=== PATIENT | female | born 1945 | race Caucasian/White ===

== ENCOUNTER 2016-09-30 14:40 | Emergency (ER) | payer OTHER ==
[~2016-09-30] VITALS: Ht 157.5 cm; Wt 65.8 kg
[~2016-09-30 14:40] MED LIST: ALBU18 PO; ALEN70TA55 PO; BUPR150T6 PO; CAR3125T PO; CLOP75TA28 PO; FELO10TA PO; GLIP-116 PO; LISI40TA PO; SIMV80TA73 PO; SPIR25TA88 PO; TRAZ50TA2 PO
[2016-09-30 15:42] LABS: Basophils # (auto) 0.1 uL; Basophils % (auto) 0.4 % (0.0-2.0); DEFINITIVE VIEW TRANSMISSION; Eosinophils # (auto) 0.1 uL; Hematocrit 38.7 % (36.0-46.0); Hemoglobin 11.5 g/dL (12.2-16.2); Lymphocytes # (auto) 2.1 uL; Lymphocytes % (auto) 14.8 % (10.0-50.0); Mean Corpuscular Hemoglobin 21.5 pg (28.0-32.0); Mean Corpuscular Hgb Conc. 29.8 g/dL (32.0-36.0); Mean Corpuscular Volume 72.2 fL (80.0-100.0); Mean Platelet Volume 8.8 fL (7.4-10.4); Monocytes # (auto) 0.7 uL; Monocytes % (auto) 5.2 % (0.0-12.0); Neutrophils # (auto) 11.2 uL; Neutrophils % (auto) 78.6 % (37.0-80.0); Platelet Count (auto) 369 10^3/uL (140-450); White Blood Cell 14.3 10^3/uL (4.4-10.8)
[2016-09-30 15:43] LABS: Albumin 3.7 g/dL (3.4-5.0); BUN/Creatinine Ratio 12.5; Bilirubin, Total 0.6 mg/dL (0.2-1.0); Calcium 9.7 mg/dL (8.5-10.1); Potassium 3.2 mmol/L (3.5-5.1); Total Protein 7.6 g/dL (6.4-8.2)
[2016-09-30 16:52] LABS: Platelet Estimate Adequate
[2016-09-30 16:53] LABS: Hypochromia Moderate
[2016-10-01 00:01] LABS: Basophils # (auto) 0.2 uL; Basophils % (auto) 1.4 % (0.0-2.0); DEFINITIVE VIEW TRANSMISSION; Eosinophils # (auto) 0.2 uL; Eosinophils % (auto) 1.6 % (0.0-7.0); Hematocrit 38.1 % (36.0-46.0); Hemoglobin 11.2 g/dL (12.2-16.2); Mean Corpuscular Hemoglobin 21.4 pg (28.0-32.0); Mean Corpuscular Hgb Conc. 29.4 g/dL (32.0-36.0); Mean Corpuscular Volume 72.6 fL (80.0-100.0); Mean Platelet Volume 8.6 fL (7.4-10.4); Monocytes # (auto) 0.9 uL; Monocytes % (auto) 7.1 % (0.0-12.0); Neutrophils # (auto) 8.6 uL; Neutrophils % (auto) 66.9 % (37.0-80.0); Platelet Count (auto) 365 10^3/uL (140-450); Red Cell Distribution Width 18.6 % (11.6-16.0); White Blood Cell 12.9 10^3/uL (4.4-10.8)
[2016-10-01 00:10] LABS: Albumin 3.7 g/dL (3.4-5.0); BUN/Creatinine Ratio 12.2; Calcium 9.5 mg/dL (8.5-10.1); Potassium 3.3 mmol/L (3.5-5.1)
[2016-10-01 00:20] LABS: Bilirubin, Total 0.7 mg/dL (0.2-1.0); Total Protein 7.4 g/dL (6.4-8.2)
[2016-10-01 00:36] LABS: B-Type Natriuretic Peptide 218.5 pg/mL (0-100); Temperature: 22.2 C (20.0-25.0)
[2016-10-01] MEDS ORDERED: POTASSIUM CHL 10% (20 MEQ/15ML) ORAL SOLN PO ONE (03:00)
[2016-10-01 03:08] VITALS: BP 144/74
[2016-10-01] MEDS ORDERED: HYDROcodone-ACET 10/325MG TAB PO ONE (03:30)
== END 2016-10-01 04:35 | disposition home or self-care (01) ==
LOC: EDUNIT# 14:40 → ER 14:49
DX: R60.9 Edema, unspecified (principal); I87.2 Venous insufficiency (chronic) (peripheral); I11.0 Hypertensive heart disease with heart failure; I50.9 Heart failure, unspecified; E11.9 Type 2 diabetes mellitus without complications; J44.9 Chronic obstructive pulmonary disease, unspecified; J45.909 Unspecified asthma, uncomplicated; Z87.891 Personal history of nicotine dependence; Z88.0 Allergy status to penicillin; Z79.02 Long term (current) use of antithrombotics/antiplatelets; Z79.899 Other long term (current) drug therapy
CPT/HCPCS: 36415; 71010; 80053; 83880; 84484; 85025; 85379; 93005; 93971

== ENCOUNTER 2019-10-13 01:43 | Inpatient (IN) | payer OTHER ==
[~2019-10-13] VITALS: Ht 157.5 cm; Wt 63.8 kg
[2019-10-13] VITALS (62 sets, daily range): BP systolic 113–178; BP diastolic 49–77
[~2019-10-13 01:43] MED LIST changes: +ALEN1TAB32 PO; -ALEN70TA55 PO; -FELO10TA PO; +FELO10TA3 PO; -GLIP-116 PO; +GLIP10TA9 PO
[2019-10-13] MEDS ORDERED: MIDAZOLAM DRIP 50 mg/50mL 50 ML IV ONE ×2 (01:57→05:25)
[2019-10-13] MEDS ORDERED: SUCCINYLCHOLINE CHLORIDE 20 MG/ML 10ML VIAL IV ONE ×2 (01:59→04:15)
[2019-10-13] MEDS ORDERED: ETOMIDATE (2MG/ML) 20ML VIAL IV ONE ×2 (01:59→04:15)
[2019-10-13] MEDS: MIDAZOLAM DRIP 50 mg/50mL 50 ML IV SCH ×4 (02:00→22:09)
[2019-10-13] MEDS ORDERED: PROPOFOL 100 ML IV ONE (02:37)
[2019-10-13] MEDS: PROPOFOL 100 ML IV SCH ×2 (02:43→22:10)
[2019-10-13] MEDS ORDERED: IPRATROPIUM BROM 0.5 MG/2.5ML INH SOL NEB ONE (03:00)
[2019-10-13] MEDS ORDERED: ALBUTEROL SULF 2.5 MG/0.5ML(0.5%) NEB SOLN NEB ONE (03:00)
[2019-10-13 05:15] LABS: Basophils # (auto) 0.1 uL; Basophils % (auto) 0.3 % (0.0-2.0); Eosinophils # (auto) 0.4 uL; Eosinophils % (auto) 2.1 % (0.0-7.0); Hematocrit 34.4 % (36.0-46.0); Hemoglobin 10.2 g/dL (12.2-16.2); Lymphocytes # (auto) 8.9 uL; Lymphocytes % (auto) 41.4 % (10.0-50.0); Mean Corpuscular Hemoglobin 23.8 pg (28.0-32.0); Mean Corpuscular Hgb Conc. 29.6 g/dL (32.0-36.0); Mean Corpuscular Volume 80.4 fL (80.0-100.0); Monocytes # (auto) 1.7 uL; Monocytes % (auto) 7.8 % (0.0-12.0); Neutrophils # (auto) 10.4 uL; Neutrophils % (auto) 48.4 % (37.0-80.0); Nucleated Red Blood Cells % 0.1 %; Platelet Count (auto) 345 10^3/uL (140-450); Red Blood Cells 4.27 10^6/uL (4.0-5.20); Red Cell Distribution Width 18.1 % (11.8-14.3); White Blood Cell 21.5 10^3/uL (4.4-10.8)
[2019-10-13 05:33] LABS: INR 0.93 (0.9-1.15); Partial Thromboplastin Time 22.8 sec (23.64-32.05); Potassium 3.6 mmol/L (3.5-5.1)
[2019-10-13 05:37] LABS: Lactic Acid w/Reflex 3.6 mmol/L (0.4-2.0)
[2019-10-13 05:44] LABS: Albumin 3.5 g/dL (3.4-5.0); BUN/Creatinine Ratio 9.5; Bilirubin, Total 0.3 mg/dL (0.2-1.0); Calcium 8.4 mg/dL (8.5-10.1); Magnesium 2.4 mg/dL (1.6-2.6); Total Protein 7.4 g/dL (6.4-8.2)
[2019-10-13] MEDS ORDERED: DEXTROSE (50%) 50ML SYRG IV ONE (08:30)
[2019-10-13] MEDS ORDERED: VANCOMYCIN PER PHARMACY 0 MG IV SCH (08:30)
[2019-10-13] MEDS: SODIUM CHLORIDE 0.9% 1,000 ML IV SCH ×2 (09:45→16:30)
[2019-10-13] MEDS ORDERED: PANTOPRAZOLE 40 MG/10 ML VIAL INJ IV ONE (10:00)
[2019-10-13] MEDS: VANCOMYCIN 1GM/250ML 250 ML IV SCH (10:54)
[2019-10-13] MEDS: ASPirin 81 mg TAB NG SCH (10:56)
[2019-10-13] MEDS: METOPROLOL TARTRATE 25 MG TAB NG SCH ×2 (11:00→22:06)
[2019-10-13] MEDS ORDERED: DEXTROSE (50%) 50ML SYRG IV PRN (11:45)
[2019-10-13] MEDS ORDERED: PIPERACILLIN-TAZOB 3.375GM 100 ML IV SCH (12:00)
[2019-10-13] MEDS ORDERED: levoFLOXacin 500MG 100 ML IV SCH (12:00)
[2019-10-13] MEDS: ACCU-CHEK COMFORT CURVE STRIP VI SCH ×2 (12:17→17:56)
[2019-10-13] MEDS: InsuLIN REG 1unit/0.01ml Soln (100units/ml) SC SCH ×2 (12:21→18:03)
[2019-10-13 12:29] LABS: Basophils # (auto) 0 uL; Basophils % (auto) 0.4 % (0.0-2.0); Eosinophils # (auto) 0 uL; Eosinophils % (auto) 0.4 % (0.0-7.0); Hematocrit 28.3 % (36.0-46.0); Hemoglobin 8.9 g/dL (12.2-16.2); Lymphocytes # (auto) 1.6 uL; Lymphocytes % (auto) 14.7 % (10.0-50.0); Mean Corpuscular Hgb Conc. 31.3 g/dL (32.0-36.0); Mean Corpuscular Volume 76.9 fL (80.0-100.0); Monocytes % (auto) 9.3 % (0.0-12.0); Neutrophils # (auto) 8.4 uL; Neutrophils % (auto) 75.2 % (37.0-80.0); Platelet Count (auto) 222 10^3/uL (140-450); Red Blood Cells 3.68 10^6/uL (4.0-5.20); Red Cell Distribution Width 18.1 % (11.8-14.3); White Blood Cell 11.1 10^3/uL (4.4-10.8)
[2019-10-13 13:13] LABS: Calcium 8.6 mg/dL (8.5-10.1); Potassium 3.2 mmol/L (3.5-5.1)
[2019-10-13] MEDS ORDERED: IPRIH INH (13:29)
[2019-10-13] MEDS ORDERED: IPRA0.03 (13:29)
[2019-10-13] MEDS ORDERED: CYA100I PO (13:29)
[2019-10-13] MEDS ORDERED: FELO5TAB3 PO (13:33)
[2019-10-13] MEDS ORDERED: SULF400T11 PO (13:33)
[2019-10-13] MEDS ORDERED: ACE3T PO (13:33)
[2019-10-13] MEDS ORDERED: DIGO0.1238 PO (13:34)
[2019-10-13] MEDS ORDERED: HYDR-4296 PO (13:36)
[2019-10-13] MEDS ORDERED: CHOL1TAB42 PO (13:36)
[2019-10-13] MEDS: methylPREDNISolone SOD SUCC 40 MG/ML VL IV SCH ×2 (14:23→22:05)
[2019-10-13] MEDS: HEPARIN SODIUM (PORCINE) 5000 UNITS/ML 1ML VIAL SC SCH ×2 (14:24→22:08)
[2019-10-13] MEDS: hydrALAZINE HCL 20 MG/ML VL IV PRN (18:31)
[2019-10-13] MEDS: POTASSIUM CHL 20MEQ/100ML 100 ML IV SCH ×2 (20:03→21:30)
[2019-10-13] MEDS ORDERED: ATORVASTATIN 20 MG TAB PO SCH (22:00)
[2019-10-13] MEDS: ATORVASTATIN 20 MG TAB NG SCH (22:05)
[2019-10-13] MEDS: traZODone HCL 50 MG TAB PO SCH (22:06)
[2019-10-13] MEDS: CARVEDILOL 3.125 MG TAB PO SCH (22:06)
[2019-10-14] VITALS (79 sets, daily range): BP systolic 124–172; BP diastolic 45–74
[2019-10-14] MEDS: METOPROLOL TARTRATE 25 MG TAB NG SCH ×2 (00:35→22:00)
[2019-10-14] MEDS: SODIUM CHLORIDE 0.9% 1,000 ML IV SCH ×2 (00:36→13:54)
[2019-10-14 03:25] LABS: Basophils # (auto) 0 uL; Basophils % (auto) 0.1 % (0.0-2.0); Eosinophils # (auto) 0 uL; Hemoglobin 8.8 g/dL (12.2-16.2); Monocytes # (auto) 0.3 uL
[2019-10-14 03:27] LABS: Hematocrit 28.4 % (36.0-46.0); Lymphocytes # (auto) 0.7 uL; Lymphocytes % (auto) 5.6 % (10.0-50.0); Mean Corpuscular Hemoglobin 23.6 pg (28.0-32.0); Mean Corpuscular Hgb Conc. 31.1 g/dL (32.0-36.0); Mean Corpuscular Volume 75.9 fL (80.0-100.0); Monocytes % (auto) 2.2 % (0.0-12.0); Neutrophils # (auto) 12.1 uL; Neutrophils % (auto) 92.1 % (37.0-80.0); Platelet Count (auto) 228 10^3/uL (140-450); Red Blood Cells 3.74 10^6/uL (4.0-5.20); White Blood Cell 13.1 10^3/uL (4.4-10.8)
[2019-10-14 03:42] LABS: Albumin 2.8 g/dL (3.4-5.0); Calcium 8.4 mg/dL (8.5-10.1); Potassium 3.6 mmol/L (3.5-5.1)
[2019-10-14 03:44] LABS: BUN/Creatinine Ratio 12.6
[2019-10-14 03:45] LABS: Bilirubin, Total 0.4 mg/dL (0.2-1.0); Total Protein 6.2 g/dL (6.4-8.2)
[2019-10-14] MEDS: MIDAZOLAM DRIP 50 mg/50mL 50 ML IV SCH ×2 (03:56→21:00)
[2019-10-14] MEDS: HEPARIN SODIUM (PORCINE) 5000 UNITS/ML 1ML VIAL SC SCH ×3 (05:17→22:00)
[2019-10-14] MEDS: methylPREDNISolone SOD SUCC 40 MG/ML VL IV SCH ×3 (05:44→22:00)
[2019-10-14] MEDS: InsuLIN REG 1unit/0.01ml Soln (100units/ml) SC SCH ×4 (05:45→18:45)
[2019-10-14] MEDS: ACCU-CHEK COMFORT CURVE STRIP VI SCH ×4 (05:45→18:31)
[2019-10-14] MEDS: VANCOMYCIN 1GM/250ML 250 ML IV SCH (10:11)
[2019-10-14] MEDS: SPIRONOLACTONE 25 MG TAB PO SCH (10:11)
[2019-10-14] MEDS: CLOPIDOGREL BISULFATE 75 MG TAB PO SCH (10:11)
[2019-10-14] MEDS: LISINOPRIL 20 MG TAB PO SCH (10:12)
[2019-10-14] MEDS: ASPirin 81 mg TAB NG SCH (10:12)
[2019-10-14] MEDS: CARVEDILOL 3.125 MG TAB PO SCH ×2 (10:18→20:00)
[2019-10-14] MEDS ORDERED: levoFLOXacin 500MG 100 ML IV SCH (14:00)
[2019-10-14] MEDS: LEVALBUTEROL HCL 1.25 MG/3 ML NEB NEB SCH (18:45)
[2019-10-14] MEDS: PROPOFOL 100 ML IV SCH (19:05)
[2019-10-14] MEDS: ATORVASTATIN 20 MG TAB NG SCH (22:00)
[2019-10-14] MEDS: traZODone HCL 50 MG TAB PO SCH (22:00)
[2019-10-15] VITALS (82 sets, daily range): BP systolic 131–165; BP diastolic 50–109
[2019-10-15] MEDS: LEVALBUTEROL HCL 1.25 MG/3 ML NEB NEB SCH ×4 (00:50→18:14)
[2019-10-15] MEDS: SODIUM CHLORIDE 0.9% 1,000 ML IV SCH ×2 (03:18→14:24)
[2019-10-15] MEDS: MIDAZOLAM DRIP 50 mg/50mL 50 ML IV SCH (03:30)
[2019-10-15] MEDS: PROPOFOL 100 ML IV SCH ×3 (04:00→22:15)
[2019-10-15] MEDS: methylPREDNISolone SOD SUCC 40 MG/ML VL IV SCH ×3 (05:31→21:55)
[2019-10-15] MEDS: HEPARIN SODIUM (PORCINE) 5000 UNITS/ML 1ML VIAL SC SCH ×3 (06:20→21:56)
[2019-10-15] MEDS: InsuLIN REG 1unit/0.01ml Soln (100units/ml) SC SCH ×4 (06:21→18:16)
[2019-10-15] MEDS: ACCU-CHEK COMFORT CURVE STRIP VI SCH ×4 (06:21→17:43)
[2019-10-15] MEDS: CARVEDILOL 3.125 MG TAB PO SCH ×3 (08:00→17:43)
[2019-10-15 09:43] LABS: Basophils # (auto) 0.1 10 ^3/uL (0-0.2); Basophils % (auto) 0.6 % (0.0-2.0); Eosinophils # (auto) 0 10 ^3/uL (0-0.8); Hematocrit 29.5 % (36.0-46.0); Lymphocytes # (auto) 0.5 10 ^3/uL (0.4-5.4); Lymphocytes % (auto) 3.3 % (10.0-50.0); Mean Corpuscular Hemoglobin 23.2 pg (28.0-32.0); Mean Corpuscular Hgb Conc. 30.3 g/dL (32.0-36.0); Mean Corpuscular Volume 76.5 fL (80.0-100.0); Monocytes # (auto) 0.5 10 ^3/uL (0-1.3); Monocytes % (auto) 3.3 % (0.0-12.0); Neutrophils # (auto) 14.4 10 ^3/uL (1.6-8.6); Neutrophils % (auto) 92.8 % (37.0-80.0); Platelet Count (auto) 230 10^3/uL (140-450); Red Blood Cells 3.86 10^6/uL (4.0-5.20); Red Cell Distribution Width 18.3 % (11.8-14.3); White Blood Cell 15.5 10^3/uL (4.4-10.8)
[2019-10-15] MEDS: SPIRONOLACTONE 25 MG TAB PO SCH (10:00)
[2019-10-15 10:03] LABS: BUN/Creatinine Ratio 19.8; Calcium 8.1 mg/dL (8.5-10.1)
[2019-10-15] MEDS: LISINOPRIL 20 MG TAB PO SCH (10:09)
[2019-10-15] MEDS: CLOPIDOGREL BISULFATE 75 MG TAB PO SCH (10:09)
[2019-10-15] MEDS: ASPirin 81 mg TAB NG SCH (10:25)
[2019-10-15] MEDS ORDERED: FUROSEMIDE 20 MG/2 ML VIAL IV ONE (10:30)
[2019-10-15] MEDS ORDERED: DEXTROSE (50%) 50ML SYRG IV PRN (12:30)
[2019-10-15] MEDS: levoFLOXacin 750MG 150 ML IV SCH (14:23)
[2019-10-15] MEDS ORDERED: ACCU-CHEK COMFORT CURVE STRIP VI SCH (18:00)
[2019-10-15] MEDS ORDERED: InsuLIN REG 1unit/0.01ml Soln (100units/ml) SC SCH (18:00)
[2019-10-15] MEDS: traZODone HCL 50 MG TAB PO SCH (21:55)
[2019-10-15] MEDS: ATORVASTATIN 20 MG TAB NG SCH (21:55)
[2019-10-16] VITALS (63 sets, daily range): BP systolic 127–172; BP diastolic 52–92
[2019-10-16] MEDS: LEVALBUTEROL HCL 1.25 MG/3 ML NEB NEB SCH ×4 (00:14→18:05)
[2019-10-16] MEDS: ACCU-CHEK COMFORT CURVE STRIP VI SCH ×4 (00:28→17:50)
[2019-10-16] MEDS: InsuLIN REG 1unit/0.01ml Soln (100units/ml) SC SCH ×4 (00:28→17:50)
[2019-10-16 03:57] LABS: Basophils # (auto) 0 10 ^3/uL (0-0.2); Eosinophils # (auto) 0 10 ^3/uL (0-0.8); Hematocrit 27.9 % (36.0-46.0); Hemoglobin 8.6 g/dL (12.2-16.2); Lymphocytes # (auto) 0.5 10 ^3/uL (0.4-5.4); Lymphocytes % (auto) 3.6 % (10.0-50.0); Mean Corpuscular Hemoglobin 23.9 pg (28.0-32.0); Mean Corpuscular Hgb Conc. 30.8 g/dL (32.0-36.0); Mean Corpuscular Volume 77.6 fL (80.0-100.0); Monocytes # (auto) 0.5 10 ^3/uL (0-1.3); Monocytes % (auto) 3.7 % (0.0-12.0); Neutrophils # (auto) 12.1 10 ^3/uL (1.6-8.6); Neutrophils % (auto) 92.7 % (37.0-80.0); Nucleated Red Blood Cells % 0.1 %; Platelet Count (auto) 217 10^3/uL (140-450); Red Blood Cells 3.59 10^6/uL (4.0-5.20); Red Cell Distribution Width 18.1 % (11.8-14.3)
[2019-10-16] MEDS: PROPOFOL 100 ML IV SCH (04:04)
[2019-10-16 04:13] LABS: BUN/Creatinine Ratio 28.4; Magnesium 2.4 mg/dL (1.6-2.6); Potassium 3.9 mmol/L (3.5-5.1)
[2019-10-16] MEDS: methylPREDNISolone SOD SUCC 40 MG/ML VL IV SCH ×3 (06:04→22:12)
[2019-10-16] MEDS: HEPARIN SODIUM (PORCINE) 5000 UNITS/ML 1ML VIAL SC SCH ×3 (06:04→22:20)
[2019-10-16] MEDS: SODIUM CHLORIDE 0.9% 1,000 ML IV SCH ×2 (07:54→10:57)
[2019-10-16] MEDS: CARVEDILOL 3.125 MG TAB PO SCH ×2 (08:00→18:08)
[2019-10-16] MEDS: LISINOPRIL 20 MG TAB PO SCH (10:00)
[2019-10-16] MEDS: ASPirin 81 mg TAB NG SCH (10:12)
[2019-10-16] MEDS: CLOPIDOGREL BISULFATE 75 MG TAB PO SCH (10:21)
[2019-10-16] MEDS: SPIRONOLACTONE 25 MG TAB PO SCH (10:44)
[2019-10-16] MEDS: DexMEDEtomidine 400 MCG in D5W 5% 96 ML IV SCH (14:02)
[2019-10-16] MEDS ORDERED: FUROSEMIDE 40 MG/4 ML VIAL IV ONE (18:30)
[2019-10-16] MEDS: ATORVASTATIN 20 MG TAB NG SCH (22:12)
[2019-10-16] MEDS: traZODone HCL 50 MG TAB PO SCH (22:12)
[2019-10-16] MEDS ORDERED: LORazepam 2MG/ML-1ML VIAL IV PRN (22:15)
[2019-10-17] VITALS (27 sets, daily range): BP systolic 124–170; BP diastolic 64–115
[2019-10-17] MEDS: LEVALBUTEROL HCL 1.25 MG/3 ML NEB NEB SCH ×5 (00:02→23:50)
[2019-10-17] MEDS: InsuLIN REG 1unit/0.01ml Soln (100units/ml) SC SCH ×4 (00:07→19:04)
[2019-10-17] MEDS: ACCU-CHEK COMFORT CURVE STRIP VI SCH ×4 (00:07→19:05)
[2019-10-17] MEDS: PROPOFOL 100 ML IV SCH (04:39)
[2019-10-17] MEDS: MIDAZOLAM DRIP 50 mg/50mL 50 ML IV SCH (04:39)
[2019-10-17] MEDS: methylPREDNISolone SOD SUCC 40 MG/ML VL IV SCH ×3 (06:14→22:05)
[2019-10-17] MEDS: HEPARIN SODIUM (PORCINE) 5000 UNITS/ML 1ML VIAL SC SCH ×3 (06:15→22:15)
[2019-10-17] MEDS: CARVEDILOL 3.125 MG TAB PO SCH ×2 (08:37→19:03)
[2019-10-17 08:46] LABS: Basophils # (auto) 0 10 ^3/uL (0-0.2); Basophils % (auto) 0.1 % (0.0-2.0); Eosinophils # (auto) 0 10 ^3/uL (0-0.8); Hemoglobin 9.8 g/dL (12.2-16.2); Lymphocytes # (auto) 0.7 10 ^3/uL (0.4-5.4); White Blood Cell 11.7 10^3/uL (4.4-10.8)
[2019-10-17 08:47] LABS: Hematocrit 31.7 % (36.0-46.0); Mean Corpuscular Hemoglobin 23.4 pg (28.0-32.0); Mean Corpuscular Hgb Conc. 30.8 g/dL (32.0-36.0); Monocytes # (auto) 0.5 10 ^3/uL (0-1.3); Monocytes % (auto) 4.7 % (0.0-12.0); Neutrophils # (auto) 10.4 10 ^3/uL (1.6-8.6); Neutrophils % (auto) 89.2 % (37.0-80.0); Platelet Count (auto) 227 10^3/uL (140-450); Red Blood Cells 4.17 10^6/uL (4.0-5.20); Red Cell Distribution Width 18.3 % (11.8-14.3)
[2019-10-17 08:53] LABS: Magnesium 2.5 mg/dL (1.6-2.6); Potassium 3.6 mmol/L (3.5-5.1)
[2019-10-17 08:56] LABS: BUN/Creatinine Ratio 29.7; Calcium 8.9 mg/dL (8.5-10.1)
[2019-10-17] MEDS: CLOPIDOGREL BISULFATE 75 MG TAB PO SCH (09:47)
[2019-10-17] MEDS: LISINOPRIL 20 MG TAB PO SCH (09:47)
[2019-10-17] MEDS: ASPirin 81 mg TAB NG SCH (09:48)
[2019-10-17] MEDS: SPIRONOLACTONE 25 MG TAB PO SCH (09:48)
[2019-10-17] MEDS: DexMEDEtomidine 400 MCG in D5W 5% 96 ML IV SCH (12:57)
[2019-10-17] MEDS: levoFLOXacin 750MG 150 ML IV SCH (14:10)
[2019-10-17] MEDS: SODIUM CHLORIDE 0.9% 1,000 ML IV SCH (14:24)
[2019-10-17] MEDS ORDERED: FUROSEMIDE 40 MG/4 ML VIAL IV ONE (16:15)
[2019-10-17] MEDS ORDERED: ALPRAZolam 0.25 MG TAB PO PRN (17:00)
[2019-10-17] MEDS: ATORVASTATIN 20 MG TAB NG SCH (22:05)
[2019-10-17] MEDS: traZODone HCL 50 MG TAB PO SCH (22:05)
[2019-10-18] VITALS (20 sets, daily range): BP systolic 99–162; BP diastolic 56–85
[2019-10-18] MEDS: ACCU-CHEK COMFORT CURVE STRIP VI SCH ×4 (00:27→18:31)
[2019-10-18] MEDS: InsuLIN REG 1unit/0.01ml Soln (100units/ml) SC SCH ×4 (00:27→18:33)
[2019-10-18] MEDS: methylPREDNISolone SOD SUCC 40 MG/ML VL IV SCH ×3 (05:48→21:17)
[2019-10-18] MEDS: HEPARIN SODIUM (PORCINE) 5000 UNITS/ML 1ML VIAL SC SCH ×3 (05:49→21:29)
[2019-10-18] MEDS: LEVALBUTEROL HCL 1.25 MG/3 ML NEB NEB SCH ×4 (06:56→23:29)
[2019-10-18] MEDS: CARVEDILOL 3.125 MG TAB PO SCH ×2 (08:00→18:00)
[2019-10-18 09:29] LABS: Eosinophils # (auto) 0 10 ^3/uL (0-0.8); Lymphocytes # (auto) 0.6 10 ^3/uL (0.4-5.4); Neutrophils # (auto) 10.3 10 ^3/uL (1.6-8.6)
[2019-10-18 09:32] LABS: Basophils # (auto) 0.1 10 ^3/uL (0-0.2); Basophils % (auto) 0.5 % (0.0-2.0); Eosinophils % (auto) 0.1 % (0.0-7.0); Hematocrit 33.2 % (36.0-46.0); Hemoglobin 10.2 g/dL (12.2-16.2); Lymphocytes % (auto) 5.6 % (10.0-50.0); Mean Corpuscular Hemoglobin 23.6 pg (28.0-32.0); Mean Corpuscular Hgb Conc. 30.8 g/dL (32.0-36.0); Mean Corpuscular Volume 76.7 fL (80.0-100.0); Monocytes # (auto) 0.5 10 ^3/uL (0-1.3); Monocytes % (auto) 4.2 % (0.0-12.0); Neutrophils % (auto) 89.6 % (37.0-80.0); Nucleated Red Blood Cells % 0.1 %; Platelet Count (auto) 149 10^3/uL (140-450); Red Blood Cells 4.33 10^6/uL (4.0-5.20); White Blood Cell 11.5 10^3/uL (4.4-10.8)
[2019-10-18 09:48] LABS: Albumin 2.9 g/dL (3.4-5.0)
[2019-10-18 09:50] LABS: Bilirubin, Total 0.7 mg/dL (0.2-1.0); Total Protein 6.2 g/dL (6.4-8.2)
[2019-10-18] MEDS: LISINOPRIL 20 MG TAB PO SCH (10:02)
[2019-10-18] MEDS: SPIRONOLACTONE 25 MG TAB PO SCH (10:02)
[2019-10-18] MEDS: ASPirin 81 mg TAB NG SCH (10:02)
[2019-10-18] MEDS: CLOPIDOGREL BISULFATE 75 MG TAB PO SCH (10:02)
[2019-10-18] MEDS ORDERED: FUROSEMIDE 40 MG/4 ML VIAL IV ONE (10:45)
[2019-10-18] MEDS: hydrALAZINE HCL 20 MG/ML VL IV PRN (18:34)
[2019-10-18] MEDS: ATORVASTATIN 20 MG TAB NG SCH (21:17)
[2019-10-18] MEDS: traZODone HCL 50 MG TAB PO SCH (21:18)
[2019-10-19] VITALS (7 sets, daily range): BP systolic 133–157; BP diastolic 50–60
[2019-10-19] MEDS: ACCU-CHEK COMFORT CURVE STRIP VI SCH ×4 (00:26→18:08)
[2019-10-19] MEDS: InsuLIN REG 1unit/0.01ml Soln (100units/ml) SC SCH ×4 (00:36→18:31)
[2019-10-19] MEDS: methylPREDNISolone SOD SUCC 40 MG/ML VL IV SCH ×3 (06:02→22:09)
[2019-10-19] MEDS: LEVALBUTEROL HCL 1.25 MG/3 ML NEB NEB SCH ×2 (06:50→12:00)
[2019-10-19] MEDS: CLOPIDOGREL BISULFATE 75 MG TAB PO SCH (08:32)
[2019-10-19] MEDS: ASPirin 81 mg TAB NG SCH (08:32)
[2019-10-19] MEDS: SPIRONOLACTONE 25 MG TAB PO SCH (08:33)
[2019-10-19] MEDS: CARVEDILOL 3.125 MG TAB PO SCH ×2 (08:33→18:29)
[2019-10-19] MEDS: LISINOPRIL 20 MG TAB PO SCH (08:34)
[2019-10-19] MEDS ORDERED: FAMOTIDINE 20 MG TAB PO SCH (10:00)
[2019-10-19] MEDS: HEPARIN SODIUM (PORCINE) 5000 UNITS/ML 1ML VIAL SC SCH ×2 (10:25→22:06)
[2019-10-19] MEDS: hydrALAZINE HCL 20 MG/ML VL IV PRN (10:30)
[2019-10-19] MEDS: levoFLOXacin 750MG 150 ML IV SCH (15:27)
[2019-10-19] MEDS ORDERED: METOCLOPRAMIDE HCL 5MG/ml INJ 2ml VIAL IV PRN (16:00)
[2019-10-19] MEDS: LEVALBUTEROL HCL 1.25 MG/3 ML NEB NEB PRN (18:09)
[2019-10-19] MEDS: ATORVASTATIN 20 MG TAB NG SCH (22:09)
[2019-10-19] MEDS: traZODone HCL 50 MG TAB PO SCH (22:09)
[2019-10-19] MEDS: PANTOPRAZOLE 40 MG TAB PO SCH (22:10)
[2019-10-20] VITALS (7 sets, daily range): BP systolic 120–149; BP diastolic 53–78
[2019-10-20] MEDS: ACCU-CHEK COMFORT CURVE STRIP VI SCH ×5 (00:06→23:42)
[2019-10-20] MEDS ORDERED: SODIUM CHLORIDE 0.9% 1,000 ML IV ONE (05:45)
[2019-10-20] MEDS: LEVALBUTEROL HCL 1.25 MG/3 ML NEB NEB PRN (06:20)
[2019-10-20] MEDS: methylPREDNISolone SOD SUCC 40 MG/ML VL IV SCH ×3 (06:20→21:34)
[2019-10-20] MEDS: InsuLIN REG 1unit/0.01ml Soln (100units/ml) SC SCH ×5 (06:38→23:47)
[2019-10-20 08:47] LABS: Magnesium 2.4 mg/dL (1.6-2.6); Potassium 3.6 mmol/L (3.5-5.1)
[2019-10-20] MEDS: SPIRONOLACTONE 25 MG TAB PO SCH (09:37)
[2019-10-20] MEDS: ASPirin 81 mg TAB NG SCH (09:37)
[2019-10-20] MEDS: CLOPIDOGREL BISULFATE 75 MG TAB PO SCH (09:37)
[2019-10-20] MEDS: CARVEDILOL 3.125 MG TAB PO SCH ×2 (09:38→17:45)
[2019-10-20] MEDS: PANTOPRAZOLE 40 MG TAB PO SCH ×2 (09:39→21:33)
[2019-10-20] MEDS: LISINOPRIL 20 MG TAB PO SCH (09:39)
[2019-10-20] MEDS ORDERED: ENOXAPARIN SOD 60 MG/0.6 ML SYRINGE SC SCH (10:00)
[2019-10-20] MEDS ORDERED: DRONEDARONE HCL 400 MG TAB PO ONE (10:49)
[2019-10-20] MEDS: ATORVASTATIN 20 MG TAB NG SCH (21:33)
[2019-10-20] MEDS: APIXABAN 5 MG TAB PO SCH (21:33)
[2019-10-20] MEDS: traZODone HCL 50 MG TAB PO SCH (21:33)
[2019-10-20] MEDS: DRONEDARONE HCL 400 MG TAB PO SCH (21:34)
[2019-10-21 05:00] VITALS: BP 135/58
[2019-10-21] MEDS: ACCU-CHEK COMFORT CURVE STRIP VI SCH ×3 (06:04→17:03)
[2019-10-21] MEDS: methylPREDNISolone SOD SUCC 40 MG/ML VL IV SCH ×2 (06:18→14:08)
[2019-10-21] MEDS: InsuLIN REG 1unit/0.01ml Soln (100units/ml) SC SCH ×3 (06:19→17:03)
[2019-10-21 07:58] LABS: Basophils # (auto) 0 10 ^3/uL (0-0.2); Basophils % (auto) 0.2 % (0.0-2.0); Eosinophils # (auto) 0 10 ^3/uL (0-0.8); Hemoglobin 10.3 g/dL (12.2-16.2); Lymphocytes # (auto) 0.8 10 ^3/uL (0.4-5.4); Monocytes # (auto) 0.6 10 ^3/uL (0-1.3)
[2019-10-21 07:59] LABS: Hematocrit 32.8 % (36.0-46.0); Lymphocytes % (auto) 6.5 % (10.0-50.0); Mean Corpuscular Hemoglobin 23.7 pg (28.0-32.0); Mean Corpuscular Hgb Conc. 31.4 g/dL (32.0-36.0); Mean Corpuscular Volume 75.3 fL (80.0-100.0); Monocytes % (auto) 5.1 % (0.0-12.0); Neutrophils # (auto) 10.6 10 ^3/uL (1.6-8.6); Neutrophils % (auto) 88.2 % (37.0-80.0); Platelet Count (auto) 223 10^3/uL (140-450); Red Blood Cells 4.36 10^6/uL (4.0-5.20); Red Cell Distribution Width 17.7 % (11.8-14.3)
[2019-10-21] MEDS: CARVEDILOL 3.125 MG TAB PO SCH ×2 (08:00→17:04)
[2019-10-21 08:14] LABS: BUN/Creatinine Ratio 30.6; Calcium 8.8 mg/dL (8.5-10.1)
[2019-10-21 08:17] LABS: INR 1.09 (0.9-1.15)
[2019-10-21 08:25] VITALS: BP 131/58
[2019-10-21] MEDS: SPIRONOLACTONE 25 MG TAB PO SCH (09:38)
[2019-10-21] MEDS: DRONEDARONE HCL 400 MG TAB PO SCH (09:38)
[2019-10-21] MEDS: PANTOPRAZOLE 40 MG TAB PO SCH (09:39)
[2019-10-21] MEDS: APIXABAN 5 MG TAB PO SCH (09:39)
[2019-10-21] MEDS: LISINOPRIL 20 MG TAB PO SCH (09:39)
[2019-10-21 12:44] VITALS: BP 110/50
[2019-10-21] MEDS ORDERED: levoFLOXacin 250 MG TAB PO SCH (14:00)
[2019-10-21] MEDS ORDERED: PANT20TA59 PO ×2 (16:09→16:11)
[2019-10-21] MEDS ORDERED: CAR3125T PO ×2 (16:09→16:11)
[2019-10-21] MEDS ORDERED: PRED20TA2 PO ×2 (16:09→16:11)
[2019-10-21] MEDS ORDERED: LISI40TA PO ×2 (16:09→16:11)
[2019-10-21] MEDS ORDERED: DIGO0.1238 PO ×2 (16:09→16:11)
[2019-10-21] MEDS ORDERED: LEVO-28 PO ×2 (16:09→16:11)
[2019-10-21] MEDS ORDERED: APIX2.5T PO ×2 (16:09→16:11)
[2019-10-21 16:59] VITALS: BP 115/50
== END 2019-10-21 20:40 | disposition home health service (06) | DRG 208 ==
LOC: EDBD 01:43 → ER 01:52 → TELE 01:53 → ICU WEST 09:42 → DOU IN ICU 10-18 16:05 → TELE-WESTW 10-20 19:51
PROVIDERS: ADMIT Internal Medicine; ATTEND Internal Medicine
PROC: 0BH17EZ Insertion of Endotracheal Airway into Trachea, Via Natural or Artificial Opening (ICD-10-PCS; principal; 2019-10-13)
PROC: 5A1945Z Respiratory Ventilation, 24-96 Consecutive Hours (ICD-10-PCS; 2019-10-13)
PROC: 5A09357 Assistance with Respiratory Ventilation, Less than 24 Consecutive Hours, Continuous Positive Airway Pressure (ICD-10-PCS; 2019-10-15)
PROC: 5A1935Z Respiratory Ventilation, Less than 24 Consecutive Hours (ICD-10-PCS; 2019-10-15)
PROC: 0BH17EZ Insertion of Endotracheal Airway into Trachea, Via Natural or Artificial Opening (ICD-10-PCS; 2019-10-15)
PROC: 5A09357 Assistance with Respiratory Ventilation, Less than 24 Consecutive Hours, Continuous Positive Airway Pressure (ICD-10-PCS; 2019-10-16)
PROC: 5A09357 Assistance with Respiratory Ventilation, Less than 24 Consecutive Hours, Continuous Positive Airway Pressure (ICD-10-PCS; 2019-10-17)
DX: J96.22 Acute and chronic respiratory failure with hypercapnia (principal); J18.1 Lobar pneumonia, unspecified organism; I21.4 Non-ST elevation (NSTEMI) myocardial infarction; E87.2 Acidosis; J98.11 Atelectasis; J45.901 Unspecified asthma with (acute) exacerbation; I43 Cardiomyopathy in diseases classified elsewhere; I50.22 Chronic systolic (congestive) heart failure; J96.21 Acute and chronic respiratory failure with hypoxia; I48.91 Unspecified atrial fibrillation; E11.9 Type 2 diabetes mellitus without complications; R79.89 Other specified abnormal findings of blood chemistry; D72.829 Elevated white blood cell count, unspecified; I11.0 Hypertensive heart disease with heart failure; I25.10 Atherosclerotic heart disease of native coronary artery without angina pectoris; F17.200 Nicotine dependence, unspecified, uncomplicated; J43.9 Emphysema, unspecified; I48.0 Paroxysmal atrial fibrillation; E66.9 Obesity, unspecified; J20.9 Acute bronchitis, unspecified; Z99.81 Dependence on supplemental oxygen; Z98.61 Coronary angioplasty status; Z88.0 Allergy status to penicillin; Z79.02 Long term (current) use of antithrombotics/antiplatelets; Z79.84 Long term (current) use of oral hypoglycemic drugs; Z79.899 Other long term (current) drug therapy; Z80.9 Family history of malignant neoplasm, unspecified; Z83.3 Family history of diabetes mellitus; Z68.25 Body mass index [BMI] 25.0-25.9, adult
CPT/HCPCS: 31500; 36415; 36600; 51702; 70450; 71045; 72125; 80048; 80053; 82805; 82962; 83036; 83605; 83735; 83880; 84132; 84443; 84484; 85025; 85379; 85610; 85730; 87040; 87070; 87077; 87081; 87186; 87205; 87804; 93005; 93306; 93970; 94002; 94003; 94640; 94660; 97110; 97116; 97163; 97530; 99291; C9113; G0378; J0330; J1815; J1956; J2250; J2704; J3480; J7060

== ENCOUNTER 2019-12-06 02:59 | Inpatient (IN) | payer OTHER ==
[~2019-12-06] VITALS: Ht 154.9 cm; Wt 69.2 kg
[2019-12-06] VITALS (63 sets, daily range): BP systolic 119–166; BP diastolic 39–70
[~2019-12-06 02:59] MED LIST changes: +APIX2.5T PO; +CHOL1TAB42 PO; -CLOP75TA28 PO; +DIGO0.1238 PO; -FELO10TA3 PO; +HYDR-4296 PO; +IPRA0.03; +IPRIH INH; +LEVO-28 PO; +PANT20TA59 PO; +PRED20TA2 PO
[2019-12-06] MEDS ORDERED: ETOMIDATE (2MG/ML) 20ML VIAL IV ONE ×2 (03:06→03:15)
[2019-12-06] MEDS ORDERED: methylPREDNISolone SOD SUCC 125 MG/2 ML VL IV ONE (03:15)
[2019-12-06] MEDS ORDERED: IPRATROPIUM BROM 0.5 MG/2.5ML INH SOL HHN ONE (03:15)
[2019-12-06] MEDS ORDERED: ALBUTEROL SULF 2.5 MG/0.5ML(0.5%) NEB SOLN HHN ONE (03:15)
[2019-12-06] MEDS: fentaNYL Drip 2500mCg/250mlNS 250 ML IV SCH (03:33)
[2019-12-06] MEDS: MIDAZOLAM DRIP 50 mg/50mL 50 ML IV SCH ×2 (03:34→11:29)
[2019-12-06 03:48] LABS: Albumin 3.4 g/dL (3.4-5.0); Calcium 8.5 mg/dL (8.5-10.1); Magnesium 2.2 mg/dL (1.6-2.6); Potassium 3.9 mmol/L (3.5-5.1)
[2019-12-06 03:53] LABS: Bilirubin, Total 0.3 mg/dL (0.2-1.0)
[2019-12-06 04:07] LABS: Urine Amorphous Crystal FEW /hpf (None Seen); Urine Bacteria FEW /hpf (None Seen); Urine Blood Negative /uL (Negative); Urine Hyaline Cast FEW /lpf (0 - 2); Urine Specific Gravity 1.013 (1.001-1.035); Urine WBC 1 /hpf (0 - 5)
[2019-12-06] MEDS ORDERED: NOREPINEPHRINE 8 MG/250ML KIT 250 ML IV ONE (04:51)
[2019-12-06] MEDS: NOREPINEPHRINE 8 MG/250ML KIT 250 ML IV SCH (04:55)
[2019-12-06] MEDS ORDERED: ONDANSETRON HCL 4 MG/2 ML VIAL IV PRN (06:30)
[2019-12-06] MEDS: FUROSEMIDE 20 MG/2 ML VIAL IV SCH ×2 (06:30→16:53)
[2019-12-06] MEDS ORDERED: ACETAMINOPHEN 325 MG TAB PO PRN (06:30)
[2019-12-06] MEDS ORDERED: DEXTROSE (50%) 50ML SYRG IV PRN (06:30)
[2019-12-06] MEDS ORDERED: MORPHINE SULF INJ 2 MG/ML SYRINGE 1ML IV PRN (06:45)
[2019-12-06] MEDS ORDERED: NITROGLYCERIN 0.4 MG SL TAB SL PRN (06:45)
[2019-12-06 08:18] LABS: Albumin 3.3 g/dL (3.4-5.0); Calcium 8.5 mg/dL (8.5-10.1); Potassium 4.1 mmol/L (3.5-5.1)
[2019-12-06 08:23] LABS: BUN/Creatinine Ratio 13.9; Bilirubin, Total 0.5 mg/dL (0.2-1.0); Total Protein 6.8 g/dL (6.4-8.2)
[2019-12-06 09:20] LABS: Basophils # (auto) 0 10 ^3/uL (0-0.2); Eosinophils # (auto) 0 10 ^3/uL (0-0.8); Eosinophils % (auto) 0.2 % (0.0-7.0); Monocytes # (auto) 0.2 10 ^3/uL (0-1.3); Neutrophils % (auto) 92.8 % (37.0-80.0)
[2019-12-06 09:22] LABS: Basophils % (auto) 0.4 % (0.0-2.0); Hematocrit 28.3 % (36.0-46.0); Hemoglobin 8.6 g/dL (12.2-16.2); Lymphocytes # (auto) 0.5 10 ^3/uL (0.4-5.4); Lymphocytes % (auto) 4.5 % (10.0-50.0); Mean Corpuscular Hemoglobin 24.8 pg (28.0-32.0); Mean Corpuscular Hgb Conc. 30.5 g/dL (32.0-36.0); Mean Corpuscular Volume 81.3 fL (80.0-100.0); Monocytes % (auto) 2.1 % (0.0-12.0); Neutrophils # (auto) 11.1 10 ^3/uL (1.6-8.6); Platelet Count (auto) 216 10^3/uL (140-450); Red Blood Cells 3.48 10^6/uL (4.0-5.20); Red Cell Distribution Width 20.5 % (11.8-14.3)
[2019-12-06] MEDS ORDERED: levoFLOXacin 500MG 100 ML IV ONE (10:00)
[2019-12-06] MEDS: APIXABAN 2.5 MG TAB PO SCH ×2 (10:00→22:25)
[2019-12-06] MEDS ORDERED: ENOXAPARIN SOD 40 MG/0.4 ML SYRINGE SC SCH (10:00)
[2019-12-06] MEDS: BUDESONIDE (INHALATION) 0.5 MG/2 ML NEB NEB SCH ×2 (10:00→19:06)
[2019-12-06 11:15] LABS: Magnesium 2.1 mg/dL (1.6-2.6)
[2019-12-06 11:24] LABS: CRP High Sensitivity 1.44 mg/dL (< 0.3)
[2019-12-06] MEDS: PANTOPRAZOLE 40 MG/10 ML VIAL INJ IV SCH (11:29)
[2019-12-06] MEDS: ACCU-CHEK COMFORT CURVE STRIP VI SCH ×2 (11:29→16:53)
[2019-12-06] MEDS: METOPROLOL TARTRATE 25 MG TAB PO SCH ×2 (11:29→22:30)
[2019-12-06] MEDS: methylPREDNISolone SOD SUCC 40 MG/ML VL IV SCH ×2 (12:00→16:53)
[2019-12-06] MEDS: InsuLIN REG 1unit/0.01ml Soln (100units/ml) SC SCH ×2 (12:28→17:43)
[2019-12-06] MEDS: IPRATROPIUM BROM 0.5 MG/2.5ML INH SOL NEB SCH ×2 (14:41→19:06)
[2019-12-06] MEDS: ALBUTEROL SULF 2.5 MG/0.5ML(0.5%) NEB SOLN NEB SCH ×2 (14:41→19:06)
[2019-12-06] MEDS: CLOPIDOGREL BISULFATE 75 MG TAB PO SCH (16:53)
[2019-12-06] MEDS: ATORVASTATIN 20 MG TAB PO SCH (22:25)
[2019-12-07] VITALS (55 sets, daily range): BP systolic 126–170; BP diastolic 43–68
[2019-12-07] MEDS: ATORVASTATIN 20 MG TAB PO SCH ×2 (00:08→22:05)
[2019-12-07] MEDS: ACCU-CHEK COMFORT CURVE STRIP VI SCH ×4 (00:10→17:54)
[2019-12-07] MEDS: methylPREDNISolone SOD SUCC 40 MG/ML VL IV SCH ×4 (00:23→17:54)
[2019-12-07] MEDS: InsuLIN REG 1unit/0.01ml Soln (100units/ml) SC SCH ×4 (00:29→18:01)
[2019-12-07] MEDS: ALBUTEROL SULF 2.5 MG/0.5ML(0.5%) NEB SOLN NEB SCH ×4 (00:43→18:51)
[2019-12-07] MEDS: IPRATROPIUM BROM 0.5 MG/2.5ML INH SOL NEB SCH ×4 (00:43→18:51)
[2019-12-07] MEDS: MIDAZOLAM DRIP 50 mg/50mL 50 ML IV SCH (00:50)
[2019-12-07] MEDS: fentaNYL Drip 2500mCg/250mlNS 250 ML IV SCH (03:19)
[2019-12-07] MEDS: NOREPINEPHRINE 8 MG/250ML KIT 250 ML IV SCH (04:46)
[2019-12-07 05:03] LABS: Basophils # (auto) 0 10 ^3/uL (0-0.2); Basophils % (auto) 0.2 % (0.0-2.0); Eosinophils # (auto) 0 10 ^3/uL (0-0.8); Lymphocytes # (auto) 0.5 10 ^3/uL (0.4-5.4); Monocytes # (auto) 0.4 10 ^3/uL (0-1.3); Neutrophils # (auto) 9.8 10 ^3/uL (1.6-8.6); Red Blood Cells 3.25 10^6/uL (4.0-5.20); White Blood Cell 10.7 10^3/uL (4.4-10.8)
[2019-12-07 05:05] LABS: Hematocrit 26.1 % (36.0-46.0); Hemoglobin 8.2 g/dL (12.2-16.2); Lymphocytes % (auto) 4.6 % (10.0-50.0); Mean Corpuscular Hemoglobin 25.2 pg (28.0-32.0); Mean Corpuscular Hgb Conc. 31.4 g/dL (32.0-36.0); Mean Corpuscular Volume 80.3 fL (80.0-100.0); Monocytes % (auto) 3.3 % (0.0-12.0); Neutrophils % (auto) 91.9 % (37.0-80.0); Platelet Count (auto) 220 10^3/uL (140-450)
[2019-12-07 05:12] LABS: Calcium 8.6 mg/dL (8.5-10.1)
[2019-12-07 05:15] LABS: Red Cell Distribution Width 20.4 % (11.8-14.3)
[2019-12-07 05:17] LABS: Bilirubin, Total 0.4 mg/dL (0.2-1.0); Total Protein 6.2 g/dL (6.4-8.2)
[2019-12-07] MEDS: FUROSEMIDE 20 MG/2 ML VIAL IV SCH (05:49)
[2019-12-07] MEDS: BUDESONIDE (INHALATION) 0.5 MG/2 ML NEB NEB SCH ×2 (06:43→18:51)
[2019-12-07] MEDS: METOPROLOL TARTRATE 25 MG TAB PO SCH ×3 (08:15→22:06)
[2019-12-07] MEDS: PANTOPRAZOLE 40 MG/10 ML VIAL INJ IV SCH (08:15)
[2019-12-07] MEDS: CLOPIDOGREL BISULFATE 75 MG TAB PO SCH ×2 (10:00→15:34)
[2019-12-07] MEDS ORDERED: levoFLOXacin 250MG 50 ML IV SCH (10:00)
[2019-12-07] MEDS: APIXABAN 2.5 MG TAB PO SCH ×2 (13:45→22:07)
[2019-12-07] MEDS: SODIUM CHLORIDE 0.9% 1,000 ML IV SCH ×2 (13:53→21:45)
[2019-12-08] MEDS: methylPREDNISolone SOD SUCC 40 MG/ML VL IV SCH ×3 (00:22→12:13)
[2019-12-08] MEDS: InsuLIN REG 1unit/0.01ml Soln (100units/ml) SC SCH ×4 (00:35→17:54)
[2019-12-08] MEDS: hydrALAZINE HCL 20 MG/ML VL IV PRN ×2 (05:05→16:19)
[2019-12-08 05:31] LABS: Basophils # (auto) 0 10 ^3/uL (0-0.2); Basophils % (auto) 0.1 % (0.0-2.0); Eosinophils # (auto) 0 10 ^3/uL (0-0.8); Lymphocytes # (auto) 0.6 10 ^3/uL (0.4-5.4); Monocytes # (auto) 0.4 10 ^3/uL (0-1.3)
[2019-12-08 05:33] LABS: Hematocrit 27.7 % (36.0-46.0); Hemoglobin 8.6 g/dL (12.2-16.2); Lymphocytes % (auto) 4.4 % (10.0-50.0); Mean Corpuscular Hemoglobin 25.1 pg (28.0-32.0); Mean Corpuscular Hgb Conc. 31.2 g/dL (32.0-36.0); Mean Corpuscular Volume 80.3 fL (80.0-100.0); Monocytes % (auto) 2.5 % (0.0-12.0); Neutrophils # (auto) 13.7 10 ^3/uL (1.6-8.6); Platelet Count (auto) 263 10^3/uL (140-450); Red Blood Cells 3.45 10^6/uL (4.0-5.20); White Blood Cell 14.7 10^3/uL (4.4-10.8)
[2019-12-08 05:44] LABS: Calcium 8.8 mg/dL (8.5-10.1); Potassium 4.4 mmol/L (3.5-5.1)
[2019-12-08 05:49] LABS: Red Cell Distribution Width 21.2 % (11.8-14.3)
[2019-12-08 06:02] VITALS: BP 163/71
[2019-12-08] MEDS: ACCU-CHEK COMFORT CURVE STRIP VI SCH ×4 (06:24→17:52)
[2019-12-08] MEDS: ALBUTEROL SULF 2.5 MG/0.5ML(0.5%) NEB SOLN NEB SCH ×5 (06:36→23:45)
[2019-12-08] MEDS: IPRATROPIUM BROM 0.5 MG/2.5ML INH SOL NEB SCH ×5 (06:36→23:45)
[2019-12-08] MEDS: BUDESONIDE (INHALATION) 0.5 MG/2 ML NEB NEB SCH ×2 (06:36→18:00)
[2019-12-08 09:00] VITALS: BP 145/60
[2019-12-08] MEDS ORDERED: levoFLOXacin 750MG 150 ML IV SCH (10:00)
[2019-12-08] MEDS: APIXABAN 2.5 MG TAB PO SCH ×2 (10:04→22:39)
[2019-12-08] MEDS: METOPROLOL TARTRATE 25 MG TAB PO SCH ×2 (10:04→22:40)
[2019-12-08] MEDS: PANTOPRAZOLE 40 MG/10 ML VIAL INJ IV SCH (10:04)
[2019-12-08] MEDS: CLOPIDOGREL BISULFATE 75 MG TAB PO SCH (10:04)
[2019-12-08 13:00] VITALS: BP_SYST 159; BP_SYST 19; BP_DIAS 72
[2019-12-08 16:24] VITALS: BP 174/63
[2019-12-08] MEDS ORDERED: CLOP75TA28 PO (17:58)
[2019-12-08] MEDS ORDERED: ATOR20TA50 PO (17:58)
[2019-12-08] MEDS ORDERED: LEVO-28 PO (17:58)
[2019-12-08] MEDS ORDERED: PRED20TA2 PO (17:58)
[2019-12-08] MEDS ORDERED: MET25T PO (17:58)
[2019-12-08] MEDS: hydrALAZINE HCL 25 MG TAB PO SCH ×2 (18:55→22:39)
[2019-12-08] MEDS: LISINOPRIL 20 MG TAB PO SCH (18:56)
[2019-12-08] MEDS: DIGOXIN 0.125 MG TAB PO SCH (18:56)
[2019-12-08 22:00] VITALS: BP 153/76
[2019-12-08] MEDS: ATORVASTATIN 20 MG TAB PO SCH (22:39)
[2019-12-08] MEDS: predniSONE 20 MG TAB PO SCH (22:41)
[2019-12-09] MEDS: ACCU-CHEK COMFORT CURVE STRIP VI SCH ×3 (00:11→12:24)
[2019-12-09] MEDS: InsuLIN REG 1unit/0.01ml Soln (100units/ml) SC SCH ×3 (00:13→12:34)
[2019-12-09 05:00] VITALS: BP 163/72
[2019-12-09 06:55] LABS: Basophils # (auto) 0 10 ^3/uL (0-0.2); Basophils % (auto) 0.1 % (0.0-2.0); Eosinophils # (auto) 0 10 ^3/uL (0-0.8); Hemoglobin 8.8 g/dL (12.2-16.2); Lymphocytes % (auto) 5.3 % (10.0-50.0); Neutrophils # (auto) 11.2 10 ^3/uL (1.6-8.6)
[2019-12-09 07:03] LABS: Hematocrit 28.2 % (36.0-46.0); Lymphocytes # (auto) 0.6 10 ^3/uL (0.4-5.4); Mean Corpuscular Hemoglobin 25.2 pg (28.0-32.0); Mean Corpuscular Hgb Conc. 31.2 g/dL (32.0-36.0); Mean Corpuscular Volume 80.6 fL (80.0-100.0); Monocytes # (auto) 0.4 10 ^3/uL (0-1.3); Neutrophils % (auto) 91.6 % (37.0-80.0); Platelet Count (auto) 249 10^3/uL (140-450); Red Blood Cells 3.49 10^6/uL (4.0-5.20); White Blood Cell 12.3 10^3/uL (4.4-10.8)
[2019-12-09 07:04] LABS: Potassium 4.4 mmol/L (3.5-5.1)
[2019-12-09] MEDS: IPRATROPIUM BROM 0.5 MG/2.5ML INH SOL NEB SCH ×2 (07:05→11:55)
[2019-12-09] MEDS: BUDESONIDE (INHALATION) 0.5 MG/2 ML NEB NEB SCH (07:05)
[2019-12-09] MEDS: ALBUTEROL SULF 2.5 MG/0.5ML(0.5%) NEB SOLN NEB SCH ×2 (07:05→11:55)
[2019-12-09 07:08] LABS: BUN/Creatinine Ratio 27.7; Calcium 9.4 mg/dL (8.5-10.1); Phosphorus 3.7 mg/dL (2.5-4.90)
[2019-12-09 07:28] LABS: Red Cell Distribution Width 20.9 % (11.8-14.3)
[2019-12-09 09:00] VITALS: BP 168/56
[2019-12-09] MEDS: METOPROLOL TARTRATE 25 MG TAB PO SCH (09:54)
[2019-12-09] MEDS: LISINOPRIL 20 MG TAB PO SCH (09:55)
[2019-12-09] MEDS: DIGOXIN 0.125 MG TAB PO SCH (09:55)
[2019-12-09] MEDS: APIXABAN 2.5 MG TAB PO SCH (09:55)
[2019-12-09 09:56] VITALS: BP 166/54
[2019-12-09] MEDS: hydrALAZINE HCL 25 MG TAB PO SCH (09:56)
[2019-12-09] MEDS: CLOPIDOGREL BISULFATE 75 MG TAB PO SCH (09:56)
[2019-12-09] MEDS: PANTOPRAZOLE 40 MG/10 ML VIAL INJ IV SCH (09:56)
[2019-12-09] MEDS: predniSONE 20 MG TAB PO SCH (09:56)
[2019-12-09 13:00] VITALS: BP 152/62
[2019-12-09 15:45] VITALS: BP 152/62
[2019-12-10] MEDS ORDERED: levoFLOXacin 250 MG TAB PO SCH (10:00)
== END 2019-12-09 17:15 | disposition home health service (06) | DRG 208 ==
LOC: EDBD 02:59 → ER 03:04 → OVERFLOW 03:05 → ICU WEST 10:00 → TELE-CENTR 12-07 18:56
PROVIDERS: ADMIT Nurse Practitioner; ATTEND Hospitalist
PROC: 5A1945Z Respiratory Ventilation, 24-96 Consecutive Hours (ICD-10-PCS; principal; 2019-12-06)
PROC: 0BH17EZ Insertion of Endotracheal Airway into Trachea, Via Natural or Artificial Opening (ICD-10-PCS; 2019-12-06)
PROC: 02HV33Z Insertion of Infusion Device into Superior Vena Cava, Percutaneous Approach (ICD-10-PCS; 2019-12-06)
DX: J96.22 Acute and chronic respiratory failure with hypercapnia (principal); N17.0 Acute kidney failure with tubular necrosis; J18.9 Pneumonia, unspecified organism; I50.43 Acute on chronic combined systolic (congestive) and diastolic (congestive) heart failure; R65.11 Systemic inflammatory response syndrome (SIRS) of non-infectious origin with acute organ dysfunction; J44.1 Chronic obstructive pulmonary disease with (acute) exacerbation; J44.0 Chronic obstructive pulmonary disease with (acute) lower respiratory infection; J45.901 Unspecified asthma with (acute) exacerbation; I13.0 Hypertensive heart and chronic kidney disease with heart failure and stage 1 through stage 4 chronic kidney disease, or unspecified chronic kidney disease; J96.21 Acute and chronic respiratory failure with hypoxia; E11.9 Type 2 diabetes mellitus without complications; D64.9 Anemia, unspecified; D72.829 Elevated white blood cell count, unspecified; E11.22 Type 2 diabetes mellitus with diabetic chronic kidney disease; E66.9 Obesity, unspecified; I25.10 Atherosclerotic heart disease of native coronary artery without angina pectoris; I48.91 Unspecified atrial fibrillation; N18.3 Chronic kidney disease, stage 3 (moderate); Z68.28 Body mass index [BMI] 28.0-28.9, adult; Z98.61 Coronary angioplasty status; Z80.9 Family history of malignant neoplasm, unspecified; Z79.02 Long term (current) use of antithrombotics/antiplatelets; Z83.3 Family history of diabetes mellitus; Z79.01 Long term (current) use of anticoagulants; Z20.828 Contact with and (suspected) exposure to other viral communicable diseases
CPT/HCPCS: 31500; 36415; 36600; 51702; 71045; 76775; 80048; 80053; 81001; 82728; 82805; 82962; 83605; 83615; 83735; 83880; 84100; 84443; 84484; 85025; 85379; 86141; 87040; 87070; 87081; 87205; 87804; 92610; 93005; 93970; 94002; 94003; 94640; 97116; 97530; 99291; C9113; G0378; J1815; J1956; J2250

== ENCOUNTER 2020-01-26 05:47 | Inpatient (IN) | payer OTHER ==
[2020-01-26] VITALS (23 sets, daily range): BP systolic 130–217; BP diastolic 56–94
[~2020-01-26] VITALS: Ht 165.1 cm; Wt 66.7 kg
[~2020-01-26 05:47] MED LIST changes: +ATOR20TA50 PO; -CAR3125T PO; +CLOP75TA28 PO; -LISI40TA PO; +LISI40TA11 PO; +MET25T PO; -SIMV80TA73 PO; -SPIR25TA88 PO
[2020-01-26] MEDS ORDERED: ALBUTEROL SULF 2.5 MG/0.5ML(0.5%) NEB SOLN NEB ONE (06:20)
[2020-01-26] MEDS ORDERED: IPRATROPIUM BROM 0.5 MG/2.5ML INH SOL NEB ONE (06:20)
[2020-01-26] MEDS ORDERED: methylPREDNISolone SOD SUCC 125 MG/2 ML VL ONE (06:20)
--- NOTE | 2020-01-26 06:20 | NUR ---
RT NOTE: PT. TOOK OFF BIPAP DUE TO BECOMING COVID-19 R/O. PT. PLACED ON 10L OXYMIZER. PT. HR 80, RR 24, POX 96%. WILL CONTINUE TO MONITOR.
[2020-01-26] MEDS ORDERED: ALBUTEROL SULF 2.5 MG/0.5ML(0.5%) NEB SOLN ONE (06:24)
[2020-01-26] MEDS ORDERED: IPRATROPIUM BROM 0.5 MG/2.5ML INH SOL ONE (06:24)
[2020-01-26] MEDS ORDERED: SUCCINYLCHOLINE CHLORIDE 20 MG/ML 10ML VIAL IV ONE ×3 (06:42→07:00)
[2020-01-26] MEDS ORDERED: ETOMIDATE (2MG/ML) 20ML VIAL IV ONE ×3 (06:42→07:00)
[2020-01-26] MEDS ORDERED: MIDAZOLAM DRIP 50 mg/50mL 50 ML IV ONE (06:52)
[2020-01-26] MEDS ORDERED: MIDAZOLAM DRIP 50 mg/50mL 50 ML IV SCH ×2 (06:55→07:00)
[2020-01-26] MEDS: MIDAZOLAM DRIP 50 mg/50mL 50 ML IV SCH (07:20)
[2020-01-26 07:43] LABS: Basophils # (auto) 0.1 10 ^3/uL (0-0.2); Basophils % (auto) 0.5 % (0.0-2.0); Eosinophils # (auto) 0.1 10 ^3/uL (0-0.8); Hemoglobin 9.3 g/dL (12.2-16.2); Lymphocytes # (auto) 1.7 10 ^3/uL (0.4-5.4)
[2020-01-26 07:44] LABS: Eosinophils % (auto) 0.5 % (0.0-7.0); Hematocrit 30.2 % (36.0-46.0); Lymphocytes % (auto) 8.3 % (10.0-50.0); Mean Corpuscular Hemoglobin 25.2 pg (28.0-32.0); Mean Corpuscular Volume 81.5 fL (80.0-100.0); Monocytes % (auto) 5.1 % (0.0-12.0); Neutrophils # (auto) 16.9 10 ^3/uL (1.6-8.6); Neutrophils % (auto) 85.6 % (37.0-80.0); Platelet Count (auto) 250 10^3/uL (140-450); Red Cell Distribution Width 17.8 % (11.8-14.3); White Blood Cell 19.8 10^3/uL (4.4-10.8)
[2020-01-26 07:59] LABS: Albumin 3.5 g/dL (3.4-5.0); Calcium 8.4 mg/dL (8.5-10.1); Potassium 3.5 mmol/L (3.5-5.1)
[2020-01-26] MEDS ORDERED: methylPREDNISolone SOD SUCC 125 MG/2 ML VL IV ONE (08:00)
[2020-01-26 08:04] LABS: INR 0.96 (0.9-1.15); Partial Thromboplastin Time 20.2 sec (23.64-32.05)
[2020-01-26 08:07] LABS: BUN/Creatinine Ratio 12.6; Bilirubin, Total 0.5 mg/dL (0.2-1.0); Total Protein 6.7 g/dL (6.4-8.2)
[2020-01-26] MEDS ORDERED: cefTRIAXone 1GM/50ML D5W 50 ML IV ONE (10:00)
[2020-01-26] MEDS ORDERED: FUROSEMIDE 40 MG/4 ML VIAL IV ONE (10:00)
[2020-01-26] MEDS ORDERED: NITROGLYCERIN 0.4 MG SL TAB SL PRN (10:45)
[2020-01-26] MEDS ORDERED: MORPHINE SULF INJ 2 MG/ML SYRINGE 1ML IV PRN (10:45)
[2020-01-26] MEDS ORDERED: levoFLOXacin 500MG 100 ML IV ONE (10:45)
[2020-01-26] MEDS ORDERED: PROMETHAZINE HCL 25 MG/ML 1ML IV PRN (10:45)
[2020-01-26 11:12] LABS: Urine Bacteria FEW /hpf (None Seen); Urine Blood Negative /uL (Negative); Urine Hyaline Cast FEW /lpf (0 - 2); Urine Specific Gravity 1.021 (1.001-1.035); Urine WBC 1 /hpf (0 - 5)
[2020-01-26] MEDS ORDERED: IPRATROPIUM BROM 0.5 MG/2.5ML INH SOL NEB PRN (11:15)
[2020-01-26] MEDS ORDERED: DEXTROSE (50%) 50ML SYRG IV PRN (11:30)
[2020-01-26] MEDS ORDERED: LISINOPRIL 20 MG TAB PO SCH (11:30)
[2020-01-26 11:37] LABS: Lactic Acid w/Reflex 3.4 mmol/L (0.4-2.0)
[2020-01-26] MEDS: ACCU-CHEK COMFORT CURVE STRIP VI SCH ×3 (12:45→20:24)
[2020-01-26] MEDS: CLOPIDOGREL BISULFATE 75 MG TAB PO SCH (13:18)
[2020-01-26] MEDS: InsuLIN REG 1unit/0.01ml Soln (100units/ml) SC SCH ×3 (13:20→20:26)
--- NOTE | 2020-01-26 14:15 | NUR ---
RT NOTE: PT. MOVED FROM ER 3 TO ER 5 WITHOUT INCIDENT.
[2020-01-26] MEDS: methylPREDNISolone SOD SUCC 40 MG/ML VL IV SCH ×2 (15:10→21:52)
--- NOTE | 2020-01-26 20:50 | NUR ---
RECEIVED REPORT FROM JHON COOLEY IN ER.
--- NOTE | 2020-01-26 21:06 | NUR ---
PATIENT ADMITTED FROM THE ER. RT BAGGING PATIENT. VENTILATOR SET UP. ETT TO VENTILATOR. PLACED ON BEDSIDE MONITOR. NSR WITHOUT ECTOPY. VERSED AT 15 MG/HR. LUNGS CLEAR. PUPILS PINPOINT AND FIXED. ORAL SECRETIONS CLOUDY WITH BLOOD STREAKS. NOTHING SUCTIONED FROM THE ETT. ABDOMEN ROUND AND SOFT. LEFT NARE NGT TO LCWS. SMALL AMOUNT OF GREEN LIQUID IN TUBING. ALL PULSES PALPABLE. NO EDEMA. JUSTICE IN PLACE AND IS DRAINING CLEAR YELLOW LIQUID TO DOWN DRAIN BAG. NO BELONGINGS. NO FAMILY CALLING. 2 PERIPHERAL IVS. IVS SHOW NO REDNESS, SWELLING, DRNG. NOTED COVID, STREP,AND INFLUENZA NEGATIVE. 2200 MEDS GIVEN. LINES LABELED. HOB ELEVATED. SCDS ON.
[2020-01-26] MEDS: FUROSEMIDE 20 MG/2 ML VIAL IV SCH (21:53)
[2020-01-26] MEDS: METOPROLOL TARTRATE 25 MG TAB PO SCH (21:54)
[2020-01-26] MEDS: ATORVASTATIN 20 MG TAB PO SCH (21:54)
[2020-01-26] MEDS: hydrALAZINE HCL 25 MG TAB PO SCH (21:54)
[2020-01-26] MEDS ORDERED: POTASSIUM EFFERVESENT TAB 25 MEQ NG SCH (22:00)
[2020-01-26] MEDS ORDERED: ENOXAPARIN SOD 60 MG/0.6 ML SYRINGE SC SCH (22:00)
[2020-01-27] VITALS (99 sets, daily range): BP systolic 120–170; BP diastolic 39–105
--- NOTE | 2020-01-27 | NUR ---
STILL VERY SEDATED. HYPOACTIVE GAG. SMALL AMOUNT OF ORAL SECRETIONS. NOTHING SUCTIONED FROM THE ETT. NGT CLAMPED AFTER MEDS GIVEN. ABDOMEN SOFT AND ROUND. ALL PULSES PALPABLE. NSR WITH OCCASIONAL PJCS. TURNED TO SIDE. IV SITE SHOWS NO REDNESS, SWELLING OR DRNG.
--- NOTE | 2020-01-27 03:00 | NUR ---
BALDEVS. AM LABS DRAWN.
[2020-01-27] MEDS: ACCU-CHEK COMFORT CURVE STRIP VI SCH ×6 (04:20→20:18)
[2020-01-27 04:22] LABS: Hemoglobin 8.8 g/dL (12.2-16.2)
[2020-01-27] MEDS: InsuLIN REG 1unit/0.01ml Soln (100units/ml) SC SCH ×6 (04:22→20:20)
[2020-01-27 04:30] LABS: BUN/Creatinine Ratio 13.2; Calcium 8.4 mg/dL (8.5-10.1); Potassium 3.5 mmol/L (3.5-5.1)
[2020-01-27 04:57] LABS: Eosinophils # (auto) 0 10 ^3/uL (0-0.8); Lymphocytes % (auto) 4.3 % (10.0-50.0); Monocytes # (auto) 0.5 10 ^3/uL (0-1.3); White Blood Cell 15.2 10^3/uL (4.4-10.8)
[2020-01-27 05:01] LABS: Basophils # (auto) 0 10 ^3/uL (0-0.2); Basophils % (auto) 0.2 % (0.0-2.0); Lymphocytes # (auto) 0.7 10 ^3/uL (0.4-5.4); Mean Corpuscular Hgb Conc. 31.4 g/dL (32.0-36.0); Mean Corpuscular Volume 79.5 fL (80.0-100.0); Monocytes % (auto) 3.4 % (0.0-12.0); Neutrophils % (auto) 92.1 % (37.0-80.0); Platelet Count (auto) 218 10^3/uL (140-450); Red Blood Cells 3.51 10^6/uL (4.0-5.20); Red Cell Distribution Width 17.3 % (11.8-14.3)
[2020-01-27] MEDS: methylPREDNISolone SOD SUCC 40 MG/ML VL IV SCH ×3 (06:00→22:49)
--- NOTE | 2020-01-27 06:00 | NUR ---
WILL WAKE UP AND WAVE AT YOU. MOVES ALL EXTREMITIES. NSR WITHOUT ECTOPY. IVS PATENT.
--- NOTE | 2020-01-27 07:00 | NUR ---
HISTOLOGY MANAGER DR. CHRISTIE STATING PATIENT WILL BE SCHEDULED FOR A POSSIBLE LHC IN A.M. STATING HE WOULD PREFER PATIENT TO REMAIN INTUBATED FOR PROCEDURE.
--- NOTE | 2020-01-27 07:55 | NUR ---
FAMILY AT BEDSIDE. QUESTIONS AND CONCERNS ADDRESSED MORTUARY LIST PROVIDED REQUESTED. Addendum: 01/27/20 at 0850 by Vicky Noonan RN WRONG PATIENT
--- NOTE | 2020-01-27 08:46 | NUR ---
[facility] CALL[facility] STATING THEY WILL BE BE ACCEPTING PATIENT FOR DONATION. BODY IS RELEASED. SPOKE TO CARLTON. [id number] Addendum: 01/27/20 at 0850 by Vicky Noonan RN WRONG PATIENT
[2020-01-27] MEDS: CHOLECALCIFEROL (VITD3) 1,000UNIT=25mCg TAB PO SCH (09:36)
[2020-01-27] MEDS: PANTOPRAZOLE 40 MG/10 ML VIAL INJ IV SCH (09:36)
[2020-01-27] MEDS: hydrALAZINE HCL 25 MG TAB PO SCH ×2 (09:37→22:50)
[2020-01-27] MEDS: DIGOXIN 0.125 MG TAB PO SCH (09:37)
[2020-01-27] MEDS: CLOPIDOGREL BISULFATE 75 MG TAB PO SCH (09:37)
[2020-01-27] MEDS: ENOXAPARIN SOD 80 MG/0.8ML SYRINGE SC SCH (09:38)
[2020-01-27] MEDS: FUROSEMIDE 20 MG/2 ML VIAL IV SCH (09:38)
[2020-01-27] MEDS: METOPROLOL TARTRATE 25 MG TAB PO SCH ×2 (09:38→22:51)
--- NOTE | 2020-01-27 09:52 | NUR ---
NG LEFT NARE NG ADVANCED FROM 55CM TO 60CM AT NARE. PLACEMENT VERIFIED VIA AUSCULTATION AND ASPIRATION. ASPIRATION PRECAUTIONS IN PLACE. Addendum: 01/27/20 at 1035 by Vicky Noonan RN CORRECTION. ADVANCED TO 65CM
[2020-01-27] MEDS ORDERED: ENOXAPARIN SOD 80 MG/0.8ML SYRINGE SC SCH ×2 (10:00)
[2020-01-27] MEDS ORDERED: levoFLOXacin 500MG 100 ML IV SCH (10:00)
--- NOTE | 2020-01-27 10:35 | NUR ---
IV insertion IV access obtained, via clean sterile technique by inserting 20 gauge catheter at Left after 2 attempt(s). IV secured properly. No trauma to site. Patient tolerated procedure well.
--- NOTE | 2020-01-27 10:40 | NUR ---
Potassium held until md rounds to clarify dose. Lisinopril held until clarification due to kidney function.
--- NOTE | 2020-01-27 11:45 | NUR ---
AUTOMATIC LATHE SETTER AT BEDSIDE DR. GUZMAN AT BEDSIDE. MD AWARE OF WASH OIL COOLER OPERATOR REQUEST FOR PATIENT TO REMAIN INTUBATED FOR PROCEDURE. SEE NEW ORDERS.
--- NOTE | 2020-01-27 12:00 | NUR ---
Family updated SonBurton updated on patients status. Consents obtained for [facility]. Questions and concerns addressed.
[2020-01-27] MEDS: fentaNYL Drip 2500mCg/250mlNS 250 ML IV SCH (12:13)
[2020-01-27] MEDS: MIDAZOLAM DRIP 50 mg/50mL 50 ML IV SCH ×2 (12:16→17:32)
--- NOTE | 2020-01-27 15:00 | NUR ---
WOUND CARE NOTE: WOUND CARE IN TO SEE PATIENT PER WOUND CARE REQUEST. PATIENT ADMITTED TO [facility] FOR ACUTE HYPOXIC RESPIRATORY FAILURE. PATIENT IS INTUBATED AND SEDATED. PER BEDSIDE NURSE PATIENT HAS NO SKIN INTEGRITY ISSUES. PATIENT CHARU SCORE IS 13. OPTIFOAM GENTLE SACRAL DRESSING APPLIED TO SACRUM BY BEDSIDE NURSE PREVENTATIVE. RECOMMEND: FREQUENT Q2H REPOSITIONING CONDITION PERMITS. BID/PRN BARRIER CREAM AND OPTIFOAM DRESSING TO SACRUM. REDISTRIBUTE PRESSURE USING PILLOWS AND WEDGES. SKIN/WOUND CARE PLAN. CONTINUED MONITORING BY WOUND CARE TEAM.
[2020-01-27] MEDS ORDERED: Glucerna 1.2 Cal 1Liter BOTTLE GT SCH (16:00)
[2020-01-27] MEDS ORDERED: hydrALAZINE HCL 25 MG TAB PO ONE (16:45)
[2020-01-27] MEDS: INSULIN LANTUS (GLARGINE) 1 /0.01ml (100units/ml) SC SCH (16:45)
--- NOTE | 2020-01-27 16:45 | NUR ---
UPDATED DR. DAMON UPDATED ON PATIENTS STATUS. SEE NEW ORDERS. OK TO CONTINUE WITH PERIPHERAL LINES AT THIS TIME. PERIPHERAL IV'S INTACT AT THIS TIME.
[2020-01-27] MEDS: SODIUM CHLORIDE 0.9% 1,000 ML IV SCH (17:10)
--- NOTE | 2020-01-27 17:30 | NUR ---
Job Analysis Manager Dr. Funes updated on patients status. New orders in place.
--- NOTE | 2020-01-27 17:42 | NUR ---
Tube feedings started. Placement confirmed via auscultation. Tube feedings started at 15ml/hr via left nare Ng. Aspiration precautions in place.
--- NOTE | 2020-01-27 18:06 | NUR ---
PROCEDURE VERIFIED TIME OF PROCEDURE WITH CURRICULUM AND INSTRUCTION SPECIALIST. PER DR. CHRISTIE APPROX 0830 FOR 01/28/20.
--- NOTE | 2020-01-27 18:35 | NUR ---
Home medication Son does not know patients home mediation list and does not have access to pills at this time. Unable to obtain updated list of home medications at this time.
--- NOTE | 2020-01-27 18:40 | NUR ---
NEURO PATIENT REMAINS STABLE. LIGHTLY SEDATED, OPENS EYES TO LIGHT TOUCH, ANSWERS SIMPLE QUESTIONS. TOLERATING VENTILATOR WELL. VSS. BED IN LOWEST POSITION. MITTENS ON SAFETY PRECAUTIONS.
--- NOTE | 2020-01-27 19:27 | NUR ---
ADMITTED TO US LAST NIGHT AT 2100 FROM ER. ETT TO VENTILATOR. NGT NOW TO GLUCERNA AT 15CC/HR WITH A GOAL OF 40CC/HR. SEDATION: FENTANYL AND VERSED. NEW 20 G IN LEFT FOREARM. STILL HAS THE RIGHT WRIST 20 G. BOTH SHOW NO REDNESS OR SWELLING. HAS NORMAL SALINE AT 100CC/HR. LANTUS ADDED TODAY. ACCUCHECKS REMAIN Q 4 HOURS. ON PLAVIX, DIGOXIN AND LEVAQUIN. PLAN: HEART CATH WITH DR CHRISTIE AT 0830 TOMORROW. DIAGNOSIS THIS ADMISSION NSTEMI. STILL IN NEED OF HOME MED LIST. ONLY ONE WHO HAS THE ACCURATE LIST IS THE PATIENT. DOES NOT LIVE WITH HER.
--- NOTE | 2020-01-27 19:58 | NUR ---
LIGHTLY DIAPHORETIC. DENIES NEED FOR FAN. NO FEVER. ONLY A SHEET ON/GOWN ON.
--- NOTE | 2020-01-27 20:00 | NUR ---
PATIENT WAKES UP READILY. DENIES PAIN, NAUSEA, CHEST PAIN OR ABDOMINAL PAIN. IV SITES SHOW NO REDNESS OR SWELLING. LUNGS CLEAR. ETT TO VENTILATOR. SUCTIONED JUST A SMALL AMOUNT OF WHITE FROM THE ETT. LEFT NARE NGT HAS GLUCERNA AT 15CC/HR. RESIDUAL WAS 5CC. REINSTILLED. POSITION CHECKED. ORAL CARE DONE. REPOSITIONED TO HER RIGHT SIDE. MOVES ALL EXTREMITIES TO FULL RANGE OF MOTION. ALL PULSES PALPABLE BUT ON THE WEAK SIDE. BILATERAL MITTENS ON. WANTED TV ON. NSR WITHOUT ECTOPY.
[2020-01-27 20:25] LABS: Protein, Urine 11.5 mg/dL (0.0-11.9)
[2020-01-27] MEDS: hydrALAZINE HCL 20 MG/ML VL IV PRN (20:37)
--- NOTE | 2020-01-27 20:38 | NUR ---
SYSTOLIC 165, PRN APRESOLINE GIVEN.
--- NOTE | 2020-01-27 21:50 | NUR ---
Respiratory note: TITRATED FIO2 TO 35%
--- NOTE | 2020-01-27 22:30 | NUR ---
VSS. LUNGS CLEAR. NOTHING SUCTIONED FROM THE ETT. REPOSITIONED TO BACK. ORAL CARE DONE. DR Jacques ROMERO WAS HERE. TUBE FEED RESIDUAL 10CC. IV SITES SHOW NO REDNESS OR SWELLING. JUSTICE: CLEAR YELLOW LIQUID TO DOWN DRAIN BAG. MARGINAL OUTPUT.
[2020-01-27] MEDS: ATORVASTATIN 20 MG TAB PO SCH (22:51)
[2020-01-28] VITALS (90 sets, daily range): BP systolic 103–171; BP diastolic 31–126
--- NOTE | 2020-01-28 | NUR ---
MULTIPLE WOUNDS CLEANED WITH WOUND CLEANSER. DRIED WOUNDS AND COVERED THEM WITH FOAM DRESSINGS. SUCTIONED THE TRACH FOR A VERY LARGE AMOUNT OF WHITE SECRETIONS. NSR WITH OCC PACS. REQUESTING A RESP TX, IT IS NOT DUE YET. RIGHT FEMORAL TRIPLE LUMEN SITE SHOWS NO REDNESS,SWELLING OR DRNG. ILEOSTOMY DRNG IS BROWN LIQUID.
--- NOTE | 2020-01-28 01:57 | NUR ---
TUBE FEEDING OFF FOR AM HEART CATH BY DR CHRISTIE.
[2020-01-28] MEDS: SODIUM CHLORIDE 0.9% 1,000 ML IV SCH (02:45)
--- NOTE | 2020-01-28 03:08 | NUR ---
AM LABS DRAWN
--- NOTE | 2020-01-28 03:55 | NUR ---
Respiratory note: TITRATED FIO2 TO 30%
[2020-01-28] MEDS: ACCU-CHEK COMFORT CURVE STRIP VI SCH ×6 (04:13→20:14)
[2020-01-28] MEDS: InsuLIN REG 1unit/0.01ml Soln (100units/ml) SC SCH ×6 (04:15→20:15)
[2020-01-28 04:49] LABS: Basophils # (auto) 0 10 ^3/uL (0-0.2); Eosinophils # (auto) 0 10 ^3/uL (0-0.8); Lymphocytes # (auto) 0.6 10 ^3/uL (0.4-5.4); Monocytes # (auto) 0.4 10 ^3/uL (0-1.3)
[2020-01-28 04:51] LABS: Basophils % (auto) 0.1 % (0.0-2.0); Hematocrit 26.9 % (36.0-46.0); Hemoglobin 8.4 g/dL (12.2-16.2); Lymphocytes % (auto) 4.8 % (10.0-50.0); Mean Corpuscular Hemoglobin 24.8 pg (28.0-32.0); Mean Corpuscular Hgb Conc. 31.1 g/dL (32.0-36.0); Mean Corpuscular Volume 79.6 fL (80.0-100.0); Neutrophils # (auto) 12.6 10 ^3/uL (1.6-8.6); Neutrophils % (auto) 92.1 % (37.0-80.0); Platelet Count (auto) 208 10^3/uL (140-450); Red Blood Cells 3.37 10^6/uL (4.0-5.20); Red Cell Distribution Width 17.4 % (11.8-14.3); White Blood Cell 13.7 10^3/uL (4.4-10.8)
--- NOTE | 2020-01-28 05:00 | NUR ---
[facility] B[facility]
[2020-01-28 05:12] LABS: Potassium 3.8 mmol/L (3.5-5.1)
[2020-01-28 05:21] LABS: BUN/Creatinine Ratio 12.5; Calcium 8.2 mg/dL (8.5-10.1)
[2020-01-28] MEDS: hydrALAZINE HCL 25 MG TAB PO SCH ×3 (05:28→22:08)
[2020-01-28] MEDS: methylPREDNISolone SOD SUCC 40 MG/ML VL IV SCH ×3 (05:28→22:07)
--- NOTE | 2020-01-28 06:00 | NUR ---
SINUS DK 59-62 WITHOUT ECTOPY.
[2020-01-28] MEDS: MIDAZOLAM DRIP 50 mg/50mL 50 ML IV SCH (06:42)
--- NOTE | 2020-01-28 06:46 | NUR ---
ABG BEING DONE
--- NOTE | 2020-01-28 07:25 | NUR ---
INITIAL CONTACT Report received from Mayra FERREIRA, care assumed Patient observed resting in bed, intubated on ventilator. Tolerating well at this time. Oxygen saturation 92%, clear lungs anteriorly. Patient opens eyes to name and follows commands. Patient on sedation of Versed and Fentanyl. Afebrile. Pulses palpable bilaterally. Vital signs remaining stable. Heart rate is sinus bradycardia 52 lowest rate noted. Blood pressure hemodynamically stable. NGT and Staley catheter patent, present, and secures. Skin intact. Alarms in place. Bed locked in lowest position, call light within reach. Will continue to monitor.
[2020-01-28] MEDS ORDERED: IODIXANOL 320MG/ML 100ML BTL IV ONE (07:44)
[2020-01-28] MEDS ORDERED: LIDOCAINE 2%HCL (LOCAL ANESTH.) INJ 20ML MDV ONE (07:44)
[2020-01-28] MEDS ORDERED: HEPARIN IN NS 1000Units/500mL 0 ML ONE ×2 (07:44→07:45)
--- NOTE | 2020-01-28 08:30 | NUR ---
MD VISIT at bedside. not wanting to perform LHC procedure today due to patient BUN/CRE becoming worse overnight.
--- NOTE | 2020-01-28 08:38 | NUR ---
MD VISIT at bedside. wanting to attempt Cpap trial today.
--- NOTE | 2020-01-28 09:10 | NUR ---
BRADYCARDIA Heart rate decreasing to 48-50. Sedation being decreased for Cpap trial. Will continue to monitor.
[2020-01-28] MEDS: PANTOPRAZOLE 40 MG/10 ML VIAL INJ IV SCH (09:17)
[2020-01-28] MEDS: CHOLECALCIFEROL (VITD3) 1,000UNIT=25mCg TAB PO SCH (09:17)
[2020-01-28] MEDS: CLOPIDOGREL BISULFATE 75 MG TAB PO SCH (09:17)
[2020-01-28] MEDS: DIGOXIN 0.125 MG TAB PO SCH (09:18)
[2020-01-28] MEDS: METOPROLOL TARTRATE 25 MG TAB PO SCH ×2 (09:18→22:09)
[2020-01-28] MEDS: levoFLOXacin 250MG 50 ML IV SCH (09:20)
[2020-01-28] MEDS: ENOXAPARIN SOD 80 MG/0.8ML SYRINGE SC SCH (10:00)
[2020-01-28] MEDS: INSULIN LANTUS (GLARGINE) 1 /0.01ml (100units/ml) SC SCH (10:00)
--- NOTE | 2020-01-28 10:00 | NUR ---
PLACED PT ON CPAP WEANING TRIAL, PER DR GUZMAN. PT IS AWAKE, ALERT AND ORIENTED. PT TOLERATING WELL. HR 59 BPM, RR16 BPM, BP 136/56. PS 7, PEEP OF 5cmH2O.
--- NOTE | 2020-01-28 10:55 | NUR ---
MEDICATION HELD Lovenox dose held, aware.
[2020-01-28] MEDS ORDERED: BUMETANIDE 2.5mg/10ml (0.25 mg/ml) INJ IV SCH (11:00)
[2020-01-28] MEDS ORDERED: SODIUM CHLORIDE 0.9% 1,000 ML IV SCH (11:00)
[2020-01-28] MEDS: fentaNYL Drip 2500mCg/250mlNS 250 ML IV SCH (11:36)
[2020-01-28] MEDS: BUMETANIDE 1mg/4ml VIAL (0.25mg/ml) IV SCH ×2 (11:47→18:00)
[2020-01-28 11:55] LABS: Creatine Kinase IFCC 109 U/L (26-192); Lactate Dehydrogenase 284 U/L (84-246)
--- NOTE | 2020-01-28 12:02 | NUR ---
MD CECILLE Demarco notified of ABG and cpap trial weaning parameters. Orders obtained for extubation.
--- NOTE | 2020-01-28 13:00 | NUR ---
EXTUBATE Patient extubated by RT per MD order. Patient placed on cool mist mask. Oxygen saturation 94%. No signs of stridor or distress noted. Will continue to monitor.
--- NOTE | 2020-01-28 13:00 | NUR ---
MEGANPatient extubated by RT Extubation order received by Dr. YOUNG], RT at bedside. Patient extubated with no problems, patient tolerated well. Patient placed on [30]% cool mist mask. Sats prior to extubation [96]%, following extubation [94]%. Continue to monitor.
--- NOTE | 2020-01-28 14:00 | NUR ---
ROUNDING NOTE Patient resting, denies pain or distress at this time. Patient resting with cool mist mask. Oxygen saturation greater than 98%. Will continue to monitor.
--- NOTE | 2020-01-28 15:25 | NUR ---
MD ODEN Spoke with regarding downgrade orders for tonight. MD does not want to downgrade patient, keep ICU status until tomorrow. MD also aware of Lovenox being held. Orders obtained for heparin drip.
--- NOTE | 2020-01-28 15:45 | NUR ---
CARES Partial linen change complete. Patient able to assist with turning side to side. Skin reassessment performed. Patient repositioned on side. NGT removed. Bed locked in lowest position, alarms in place. Patient instructed to call for assistance. Patient verbalized understanding, call light within reach.
[2020-01-28] MEDS ORDERED: HEPARIN DRIP/D5W 100UNITS/ML 250 ML IV SCH (15:51)
--- NOTE | 2020-01-28 16:04 | NUR ---
Nutrition Assessment Notes Please refer to link for full assessment notes. Est Energy needs: 4062-1193 kcals (30-35 kcal/kgBW) d/t pt with CKD Est Protein needs: 57-64 gms/day (0.8-0.9 gm/kgBW) d/t pt with CKD w/o DM Will continue to monitor and reassess prn. Addendum: 01/28/20 at [address] Amended: Links added.
--- NOTE | 2020-01-28 16:34 | NUR ---
PHARMACY Spoke with pharmacist regarding heparin drip. nutrition technician at bedside drawing PT/PTT. Pharmacist stated to start heparin drip at 8.5 ml/hr, lab draw to be performed 6 hrs after infusion has begun.
--- NOTE | 2020-01-28 16:57 | NUR ---
CRITICAL LAB VALUE PTT came back greater than 139. Redraw ordered. Pharmacist notified of medication being held until new lab draw performed.
--- NOTE | 2020-01-28 17:29 | NUR ---
SWALLOW EVALUATED. PATIENT HAS NO TEETH, NO DENTURES. ABLE TO FOLLOW COMMANDS. PATIENT ABLE TO TOLERATE MECHANICAL SOFT DIET TEXTURE WITH THIN LIQUIDS WITH NO OVERT SIGNS OR SYMPTOMS OF ASPIRATION. NURSING PRESENT FOR EVALUATION.
--- NOTE | 2020-01-28 17:40 | NUR ---
LAB biomedical electronics technician at bedside for redraw.
[2020-01-28 18:11] LABS: INR 1.01 (0.9-1.15); Partial Thromboplastin Time 23.6 sec (23.64-32.05)
[2020-01-28] MEDS: HEPARIN DRIP/D5W 100UNITS/ML 250 ML IV SCH (18:42)
--- NOTE | 2020-01-28 19:13 | NUR ---
REPORT report given to Mayra FERREIRA, care endorsed.
--- NOTE | 2020-01-28 20:00 | NUR ---
PATIENT ADMITTED WITH COPD EXACERBATION. EXTUBATED TODAY AT 1PM. PLAN FOR HEART CATH TODAY WITH DR CHRISTIE CANCELED DUE TO LARGE JUMP IN CREATININE. ALERT. DROWSY. ORIENTED. TORO. 3LNP. LUNGS CLEAR. ABDOMEN SOFT. NO SKIN ISSUES. PREVENTATIVE OPTIFOAM ON COCCYX AREA. ALL PULSES ARE PALPABLE AND ON THE WEAK SIDE OF NORMAL. NO PERIPHERAL EDEMA. JUSTICE IN. DRAINING CLEAR YELLOW LIQUID. ON A HEPARING DRIP. NEXT PTT ORDERED FOR 0045 PER PHARMACY.
[2020-01-28] MEDS: ATORVASTATIN 20 MG TAB PO SCH (22:08)
[2020-01-29] VITALS (22 sets, daily range): BP systolic 134–184; BP diastolic 43–125
--- NOTE | 2020-01-29 | NUR ---
PICKED AT DINNER FOR 3 HOURS. TOOK PILLS WITH APPLESAUCE. NSR WITH BBB. LUNGS CLEAR. COARSE NONPRODUCTIVE COUGH. ORIENTED. TOOR. IVS SHOW NO REDNESS OR SWELLING. HEPARIN DRIP. PTT DUE AT 0045.
[2020-01-29] MEDS: ACCU-CHEK COMFORT CURVE STRIP VI SCH ×7 (00:11→23:39)
[2020-01-29] MEDS: InsuLIN REG 1unit/0.01ml Soln (100units/ml) SC SCH ×7 (00:12→23:37)
--- NOTE | 2020-01-29 00:45 | NUR ---
LAB HERE TO DRAW BLOOD.
[2020-01-29 01:36] LABS: INR 1.04 (0.9-1.15); Partial Thromboplastin Time 29.5 sec (23.64-32.05)
[2020-01-29] MEDS ORDERED: HEPARIN SODIUM (PORCINE) 5000 UNITS/ML 1ML VIAL ONE (02:09)
--- NOTE | 2020-01-29 02:12 | NUR ---
PTT 29.6. INCREASED HEPARIN DRIP TO 1150UNITS/HR. BOLUS 5000 UNITS GIVEN,.
[2020-01-29] MEDS: hydrALAZINE HCL 20 MG/ML VL IV PRN (02:52)
--- NOTE | 2020-01-29 02:53 | NUR ---
APRESOLINE PRN FOR SYSTOLIC OF 167
[2020-01-29 04:04] LABS: Basophils # (auto) 0.1 10 ^3/uL (0-0.2); Eosinophils # (auto) 0 10 ^3/uL (0-0.8); Lymphocytes # (auto) 0.5 10 ^3/uL (0.4-5.4); Monocytes # (auto) 0.5 10 ^3/uL (0-1.3); Monocytes % (auto) 3.2 % (0.0-12.0)
[2020-01-29 04:07] LABS: Basophils % (auto) 0.7 % (0.0-2.0); Hematocrit 28.7 % (36.0-46.0); Hemoglobin 9.1 g/dL (12.2-16.2); Lymphocytes % (auto) 3.1 % (10.0-50.0); Mean Corpuscular Hemoglobin 25.2 pg (28.0-32.0); Mean Corpuscular Hgb Conc. 31.6 g/dL (32.0-36.0); Mean Corpuscular Volume 79.7 fL (80.0-100.0); Neutrophils # (auto) 13.8 10 ^3/uL (1.6-8.6); Platelet Count (auto) 198 10^3/uL (140-450); Red Blood Cells 3.61 10^6/uL (4.0-5.20); White Blood Cell 14.8 10^3/uL (4.4-10.8)
[2020-01-29 04:25] LABS: BUN/Creatinine Ratio 14.9; Calcium 8.3 mg/dL (8.5-10.1); Potassium 4.1 mmol/L (3.5-5.1)
[2020-01-29] MEDS: BUMETANIDE 1mg/4ml VIAL (0.25mg/ml) IV SCH ×2 (06:00→18:05)
[2020-01-29] MEDS: methylPREDNISolone SOD SUCC 40 MG/ML VL IV SCH ×3 (06:03→21:36)
[2020-01-29] MEDS: hydrALAZINE HCL 25 MG TAB PO SCH ×3 (06:04→21:37)
--- NOTE | 2020-01-29 09:01 | NUR ---
ECHO Kameron medical equipment technician at bedside.
[2020-01-29 09:50] LABS: INR 1.04 (0.9-1.15); Partial Thromboplastin Time 64.5 sec (23.64-32.05)
[2020-01-29] MEDS: DIGOXIN 0.125 MG TAB PO SCH (10:00)
--- NOTE | 2020-01-29 10:09 | NUR ---
PT DIAZ Graham PT at bedside. Patient able to walk with walker and portable oxygen outside of room. Patient now resting in a chair eating breakfast. Call light within reach.
--- NOTE | 2020-01-29 10:15 | NUR ---
HEPARIN DRIP PTT- 64.5, PER PROTOCOL NO BOLUS AND NO CHANGE IN RATE.
[2020-01-29] MEDS: CLOPIDOGREL BISULFATE 75 MG TAB PO SCH (10:42)
[2020-01-29] MEDS: METOPROLOL TARTRATE 25 MG TAB PO SCH ×2 (10:42→21:38)
[2020-01-29] MEDS: CHOLECALCIFEROL (VITD3) 1,000UNIT=25mCg TAB PO SCH (10:42)
[2020-01-29] MEDS: INSULIN LANTUS (GLARGINE) 1 /0.01ml (100units/ml) SC SCH (10:43)
[2020-01-29] MEDS: PANTOPRAZOLE 40 MG/10 ML VIAL INJ IV SCH (10:43)
--- NOTE | 2020-01-29 11:15 | NUR ---
Respiratory note: PT ASSESSMENT FOR PRN. PT AWAKE, ALERT AND RESPONSIVE. PT FOUND ON 3.0 LPM NASAL CANULA. HR 69, RR 16, SP02 96%. BS ARE DIMINISHED THROUGHOUT. PT IS IN NO DISTRESS AT THIS TIME. PT HAS NO COMPLAINT OF SOB. INFORMED PT TO HAVE RT PAGED IF BECOMES SOB. NOT TX INDICATED AT THIS TIME.
[2020-01-29] MEDS: MIDAZOLAM DRIP 50 mg/50mL 50 ML IV SCH (11:45)
[2020-01-29] MEDS: SOD CHL 0.45% 1,000 ML IV SCH (12:39)
--- NOTE | 2020-01-29 12:51 | NUR ---
assessment Patient is a 74 year old female who is in ICU. Prior to admission per her son Burton she lived home alone and was independent. Per Burton patient has a fww and a bedside commode for home use. PAtient was on home health with [facility]. i informed Burton I would discharge plan with patient once out of ICU and prior to discharge. Burton verbalized understanding. Addendum: 01/29/20 at 1553 by Randa INTERIANO Amended: Links added.
--- NOTE | 2020-01-29 14:12 | NUR ---
[facility] Patient [facility] via bed with portable oxygen and all personal belongings. Vital signs stable. No signs of distress. Family notified of transfer.
[2020-01-29 15:19] LABS: INR 1.03 (0.9-1.15); Partial Thromboplastin Time 43.3 sec (23.64-32.05)
[2020-01-29] MEDS: HEPARIN DRIP/D5W 100UNITS/ML 250 ML IV SCH (16:17)
[2020-01-29] MEDS: ALBUTEROL SULF 2.5 MG/0.5ML(0.5%) NEB SOLN NEB PRN (18:37)
--- NOTE | 2020-01-29 20:00 | NUR ---
ASSUMED CARE, PT. AWAKE, ASSISTED PT. EATING HER SUFFER, NO C/O PAIN, NO SOB.
[2020-01-29] MEDS: ATORVASTATIN 20 MG TAB PO SCH (21:38)
--- NOTE | 2020-01-29 23:18 | NUR ---
pt. aptt- 61.6, no bolus, no change, to keep monitor.
[2020-01-30] MEDS: SOD CHL 0.45% 1,000 ML IV SCH ×2 (01:20→02:55)
[2020-01-30] MEDS: InsuLIN REG 1unit/0.01ml Soln (100units/ml) SC SCH ×6 (03:37→23:33)
[2020-01-30] MEDS: ACCU-CHEK COMFORT CURVE STRIP VI SCH ×6 (03:39→23:34)
[2020-01-30] MEDS: HEPARIN DRIP/D5W 100UNITS/ML 250 ML IV SCH ×2 (04:28→13:40)
[2020-01-30 05:00] VITALS: BP 149/71
--- NOTE | 2020-01-30 05:16 | NUR ---
pt. aptt-63.1, no bulos, no change, to keep monitor
[2020-01-30] MEDS: methylPREDNISolone SOD SUCC 40 MG/ML VL IV SCH ×2 (05:36→21:52)
[2020-01-30] MEDS: BUMETANIDE 1mg/4ml VIAL (0.25mg/ml) IV SCH ×2 (05:36→18:19)
[2020-01-30] MEDS: hydrALAZINE HCL 25 MG TAB PO SCH ×3 (05:37→21:53)
[2020-01-30 05:56] LABS: Basophils # (auto) 0 10 ^3/uL (0-0.2); Eosinophils # (auto) 0 10 ^3/uL (0-0.8); Lymphocytes # (auto) 0.6 10 ^3/uL (0.4-5.4)
[2020-01-30 05:58] LABS: Basophils % (auto) 0.2 % (0.0-2.0); Hematocrit 30.4 % (36.0-46.0); Hemoglobin 9.5 g/dL (12.2-16.2); Mean Corpuscular Hemoglobin 24.7 pg (28.0-32.0); Mean Corpuscular Hgb Conc. 31.4 g/dL (32.0-36.0); Mean Corpuscular Volume 78.7 fL (80.0-100.0); Monocytes # (auto) 0.5 10 ^3/uL (0-1.3); Monocytes % (auto) 3.2 % (0.0-12.0); Neutrophils % (auto) 92.6 % (37.0-80.0); Platelet Count (auto) 225 10^3/uL (140-450); Red Blood Cells 3.87 10^6/uL (4.0-5.20); Red Cell Distribution Width 17.9 % (11.8-14.3); White Blood Cell 15.1 10^3/uL (4.4-10.8)
[2020-01-30 06:20] LABS: INR 1.07 (0.9-1.15); Partial Thromboplastin Time 63.1 sec (23.64-32.05)
[2020-01-30 06:22] LABS: Calcium 8.4 mg/dL (8.5-10.1); Potassium 3.9 mmol/L (3.5-5.1)
[2020-01-30 06:24] LABS: BUN/Creatinine Ratio 19.6
--- NOTE | 2020-01-30 07:30 | NUR ---
Opening Shift Note Assuming care of patient at this time. Patient is awake and alert. Patient denies pain. Patient shows no signs or symptoms of distress or shortness of breath. Bed is locked and lowered with side rails up x2. Instructed patient on the plan of care for today and to call for assistance as needed. Call light within reach.
[2020-01-30 09:00] VITALS: BP 164/72
[2020-01-30] MEDS: CHOLECALCIFEROL (VITD3) 1,000UNIT=25mCg TAB PO SCH (10:17)
[2020-01-30] MEDS: DIGOXIN 0.125 MG TAB PO SCH (10:18)
[2020-01-30] MEDS: CLOPIDOGREL BISULFATE 75 MG TAB PO SCH (10:18)
[2020-01-30] MEDS: PANTOPRAZOLE 40 MG/10 ML VIAL INJ IV SCH (10:18)
[2020-01-30] MEDS: INSULIN LANTUS (GLARGINE) 1 /0.01ml (100units/ml) SC SCH (10:27)
[2020-01-30] MEDS: METOPROLOL TARTRATE 25 MG TAB PO SCH ×2 (10:28→21:53)
[2020-01-30] MEDS: levoFLOXacin 250MG 50 ML IV SCH (10:39)
--- NOTE | 2020-01-30 11:11 | NUR ---
Respiratory note: PRN ASSESSMENT. PT AWAKE, ALERT. FOUND ON 2 LPM, SPO2 95%. PT IS IN NO DISTRESS AND NO COMPLAINT OF SOB. NO TX INDICATED AT THIS TIME. PT AWARE TO HAVE RT PAGED IF BECOMES SOB.
[2020-01-30 11:53] LABS: INR 1.07 (0.9-1.15)
[2020-01-30 12:07] LABS: Partial Thromboplastin Time 99.8 sec (23.64-32.05)
--- NOTE | 2020-01-30 12:40 | NUR ---
Heparin Drip Critical aPTT received from lab at this time, 99.8. Spoke with pharmacist. Per pharmacist, heparin drip is to be held at this time for one hour and will be resumed in one hour with the rate of 10.5 ml/hr. Will turn off heparin drip at this time.
[2020-01-30 12:49] VITALS: BP 126/60
[2020-01-30] MEDS: MIDAZOLAM DRIP 50 mg/50mL 50 ML IV SCH (12:54)
--- NOTE | 2020-01-30 14:48 | NUR ---
Nutrition Followup Note Wt: 66.7 kg Pt was sleeping with no family. pt with no distress noted currenty on mech soft diet with inadequate PO of 25% x 3 per RN doc Est Energy needs: 8812-7936 kcals (30-35 kcal/kgBW) d/t pt with CKD, Est Protein needs: 57-64 gms/day (0.8-0.9 gm/kgBW) d/t pt with CKD w/o DM. Will continue to monitor and reassess prn. Labs: BUN 78 H, CREAT 3.98 H, CA 8.4 L, GLU 200 H BM: 1 BM today per RN doc Skin: BS 17 mod risk, full details in neonatal intensive care nurse doc. PES: Altered nutrition related lab values r/t current medical condition aeb elev RFTs., low GFR, hyperglycemia Comments: 1) consider CCHO 60 gm renal specific 60 gm protein 2 gm na diet. 2) refer to CDE on DC. 3) consider glucerna 1 carton bid if PO continues to be low. 4) continue current plan of care F/u mod 3-5 days
--- NOTE | 2020-01-30 15:17 | NUR ---
Heparin Drip Heparin drip resumed at this time. Rate will be 10.5 ml/hr per pharmacy. Addendum: 01/30/20 at 1519 by MANUELITO MONDRAGON RN RN this note intended for 1340, the time heparin drip was resumed.
[2020-01-30 16:49] VITALS: BP 135/75
--- NOTE | 2020-01-30 19:10 | NUR ---
PT ASSESSED FOR PRN MED NEB TX. SPO2 92% ON 2L NC, HR 57. PT DENIES ANY RESPIRATORY DISTRESS. NO TX INDICATED. PT IS AWARE TO HAVE RT PAGED IF TX NEEDED.
--- NOTE | 2020-01-30 19:34 | NUR ---
Closing Shift Note Patient is resting in bed. No distress noted. Report given. Will endorse care to the date night caregiver RN.
--- NOTE | 2020-01-30 20:00 | NUR ---
ASSUMED CARE, PT. AWAKE, NO C/O PAIN, NOT IN DISTRESS.
[2020-01-30 20:59] LABS: INR 1.13 (0.9-1.15)
--- NOTE | 2020-01-30 21:00 | NUR ---
PT. APTT- 139, HOLD HEPARIN FOR ONE HOUR, THEN DECREASE HEPARIN 3ML AFTER ONE HOUR, PER PROTOCOL.
[2020-01-30 21:02] LABS: Partial Thromboplastin Time > 139.0 sec (23.64-32.05)
[2020-01-30 21:30] VITALS: BP 152/67
[2020-01-30] MEDS: ATORVASTATIN 20 MG TAB PO SCH (21:53)
[2020-01-31] MEDS: HEPARIN DRIP/D5W 100UNITS/ML 250 ML IV SCH (02:27)
[2020-01-31] MEDS: InsuLIN REG 1unit/0.01ml Soln (100units/ml) SC SCH ×5 (03:43→20:30)
[2020-01-31] MEDS: ACCU-CHEK COMFORT CURVE STRIP VI SCH ×5 (03:45→20:27)
[2020-01-31] MEDS: SOD CHL 0.45% 1,000 ML IV SCH ×3 (04:00→23:37)
[2020-01-31 04:30] VITALS: BP 138/74
--- NOTE | 2020-01-31 04:50 | NUR ---
SEEN OVERHEAD GARAGE DOOR HANGER DRAWING BLOOD FOR HEPARIN LEVEL AT THE RT. ARM WHERE THE HEPARIN DRIP RUNNING, ILL STOP HER AND ASKED HER TO DRAW BLOOD FROM LT. ARM.
--- NOTE | 2020-01-31 05:06 | NUR ---
PAGED HOSPITALIST, RE: PT. PAIN MED, WAITING TO CALL BACK.
[2020-01-31 05:16] LABS: Hemoglobin 10.5 g/dL (12.2-16.2); Mean Corpuscular Hemoglobin 24.8 pg (28.0-32.0); Mean Corpuscular Hgb Conc. 31.7 g/dL (32.0-36.0); White Blood Cell 14.4 10^3/uL (4.4-10.8)
[2020-01-31 05:20] LABS: Hematocrit 33.1 % (36.0-46.0); Mean Corpuscular Volume 78.2 fL (80.0-100.0); Platelet Count (auto) 244 10^3/uL (140-450); Red Blood Cells 4.24 10^6/uL (4.0-5.20); Red Cell Distribution Width 17.5 % (11.8-14.3)
[2020-01-31 05:29] LABS: INR 1.03 (0.9-1.15); Partial Thromboplastin Time 29.4 sec (23.64-32.05)
[2020-01-31] MEDS: hydrALAZINE HCL 25 MG TAB PO SCH ×3 (05:31→22:42)
[2020-01-31] MEDS: BUMETANIDE 1mg/4ml VIAL (0.25mg/ml) IV SCH ×2 (05:31→17:19)
[2020-01-31 05:41] LABS: Potassium 3.9 mmol/L (3.5-5.1)
[2020-01-31] MEDS ORDERED: ACETAMINOPHEN 325 MG TAB PO ONE (05:45)
--- NOTE | 2020-01-31 05:50 | NUR ---
PT. APTT- 29.4, PER PROTOCOL HEPARIN 5000 IV BULOS AND INCREASE RATE 3ML PER HR.
[2020-01-31 05:52] LABS: Basophils % (manual) 0 (0.0-2.0); Blast Cells 0; Eosinophils % (manual) 0 (0-7); Metamyelocytes % 0; Monocytes % (manual) 0 (0-12); Myelocytes % 0; Promyelocytes % 0; Reactive Lymphocytes 0
[2020-01-31 05:56] LABS: Calcium 8.7 mg/dL (8.5-10.1)
[2020-01-31] MEDS ORDERED: HEPARIN SODIUM (PORCINE) 5000 UNITS/ML 1ML VIAL IV ONE (06:00)
--- NOTE | 2020-01-31 06:14 | NUR ---
LAB. CALLED, PT. BUN- 93, TO ENDORSED TO JHON BILLINGS.
[2020-01-31 08:41] LABS: Band Neutrophils % (manual) 1; Lymphocytes % (manual) 5 (10.0-50.0)
[2020-01-31 09:00] VITALS: BP_SYST 148; BP_SYST 93; BP_DIAS 56; BP_DIAS 80
--- NOTE | 2020-01-31 10:30 | NUR ---
Page to Dr. Sky Page to Dr. Sky at this time regarding patient's heparin drip. Awaiting callback.
--- NOTE | 2020-01-31 11:00 | NUR ---
IV Replacement Patient does not want IVs replaced at this time. Educated patient on our protocol to change IVs. Patient verbalizes that she is going home tomorrow and will wait to have IVs removed.
[2020-01-31] MEDS: CHOLECALCIFEROL (VITD3) 1,000UNIT=25mCg TAB PO SCH (11:06)
[2020-01-31] MEDS: methylPREDNISolone SOD SUCC 40 MG/ML VL IV SCH ×2 (11:07→22:42)
[2020-01-31] MEDS: DIGOXIN 0.125 MG TAB PO SCH (11:07)
[2020-01-31] MEDS: PANTOPRAZOLE 40 MG/10 ML VIAL INJ IV SCH (11:07)
[2020-01-31] MEDS: METOPROLOL TARTRATE 25 MG TAB PO SCH ×2 (11:08→22:43)
[2020-01-31] MEDS: CLOPIDOGREL BISULFATE 75 MG TAB PO SCH (11:08)
[2020-01-31] MEDS: INSULIN LANTUS (GLARGINE) 1 /0.01ml (100units/ml) SC SCH (11:12)
--- NOTE | 2020-01-31 12:02 | NUR ---
Respiratory note: Assessed pt for prn medneb tx. HR 61, RR 16, SPO2 93% on 2lpm nasal cannula. Breath sounds clear/dim. Pt denies sob at this time. No s/s of respiratory distress. Medneb tx not indicated at this time. Pt is aware to call for RT if needed.
[2020-01-31 12:31] LABS: INR 1.07 (0.9-1.15)
[2020-01-31 12:32] LABS: Partial Thromboplastin Time 123.9 sec (23.64-32.05)
--- NOTE | 2020-01-31 12:47 | NUR ---
Heparin Drip Critical aPTT received from lab at this time, 123.9. Spoke with pharmacist. Per pharmacist, heparin drip is to be held at this time for one hour and will be resumed in one hour with the rate of 7.5 ml/hr. Will turn off heparin drip at this time.
[2020-01-31 13:00] VITALS: BP 125/53
--- NOTE | 2020-01-31 13:47 | NUR ---
Heparin Drip Heparin drip resumed at this time. Rate resumed at 7.5 ml/hr per pharmacist. Next PTT will need to be drawn at 1947.
--- NOTE | 2020-01-31 15:03 | NUR ---
D/C Planning Regarding social service consult for SNF placement. Patient stated she does not want to be placed at a skill nursing facility. Patient would like to go home after discharge. Placed call to MANUEL Van to informed her patient would like to be discharge home with home health. Per consult for home health safety evaluation and physical therapy. Faxed clinical information to [facility]. Per Lorna with [facility] patient has been accepted and service to start within 24-48hrs upon d/c day. Faxed clinical information to [facility] medical group requesting authorization for home health agency. JHON Echeverria was informed.
[2020-01-31 17:00] VITALS: BP 144/62
[2020-01-31] MEDS: ALBUTEROL SULF 2.5 MG/0.5ML(0.5%) NEB SOLN NEB PRN (18:18)
--- NOTE | 2020-01-31 19:20 | NUR ---
Opening Shift Note Assumed care of patient after receiving report from day RN. Patient awake and alert with no S/S of distress/SOB or pain. Call light within reach, bed in lowest position x2 side rails, HOB >30. Instructed on POC and to call for assist PRN, will continue to monitor for changes Q1hr and PRN.
--- NOTE | 2020-01-31 19:27 | NUR ---
Critical lab Lab called with critical PTT >139. Holding heparin drip for one hour. Will continue to monitor. Addendum: 02/01/20 at 0048 by Celina Arellano RN Time of holding heparin drip was 2026
--- NOTE | 2020-01-31 19:32 | NUR ---
Closing Shift Note Patient resting in bed. No distress noted. Report given. Will endorse care to the service order clerk RN.
[2020-01-31 20:09] LABS: INR 1.07 (0.9-1.15)
[2020-01-31 20:11] LABS: Partial Thromboplastin Time > 139.0 sec (23.64-32.05)
--- NOTE | 2020-01-31 20:40 | NUR ---
Heparin drip restarted and decreased by 3 ml/hr per protocol. Now running at 4.5 ml/hr. Addendum: 02/01/20 at 0047 by Celina Arellano RN Time of restarting heparin was 21:30
[2020-01-31 21:47] VITALS: BP 120/66
[2020-01-31 22:00] VITALS: BP 139/52
[2020-01-31] MEDS: ATORVASTATIN 20 MG TAB PO SCH (22:43)
--- NOTE | 2020-01-31 23:04 | NUR ---
Called Patient requesting Tylenol for 8/10 back pain. Called Liz and left message. Awaiting call back.
--- NOTE | 2020-01-31 23:06 | NUR ---
New order Received call back from MD Jeannie with new order for Tylenol 650 mg Q6H PRN for mild to moderate pain. Order read back and verified and placed.
[2020-01-31] MEDS ORDERED: ACETAMINOPHEN 325 MG TAB PO PRN (23:15)
[2020-02-01] MEDS: ACCU-CHEK COMFORT CURVE STRIP VI SCH ×5 (00:20→16:55)
[2020-02-01] MEDS: InsuLIN REG 1unit/0.01ml Soln (100units/ml) SC SCH ×5 (00:22→16:55)
[2020-02-01 03:39] LABS: Basophils # (auto) 0 10 ^3/uL (0-0.2); Basophils % (auto) 0.1 % (0.0-2.0); Eosinophils # (auto) 0 10 ^3/uL (0-0.8); Hematocrit 34.9 % (36.0-46.0); Lymphocytes # (auto) 0.9 10 ^3/uL (0.4-5.4); Lymphocytes % (auto) 5.1 % (10.0-50.0); Mean Corpuscular Hemoglobin 24.7 pg (28.0-32.0); Mean Corpuscular Hgb Conc. 31.6 g/dL (32.0-36.0); Mean Corpuscular Volume 78.3 fL (80.0-100.0); Monocytes # (auto) 0.8 10 ^3/uL (0-1.3); Monocytes % (auto) 4.5 % (0.0-12.0); Neutrophils # (auto) 16.1 10 ^3/uL (1.6-8.6); Neutrophils % (auto) 90.3 % (37.0-80.0); Platelet Count (auto) 268 10^3/uL (140-450); Red Blood Cells 4.46 10^6/uL (4.0-5.20); Red Cell Distribution Width 17.4 % (11.8-14.3); White Blood Cell 17.8 10^3/uL (4.4-10.8)
[2020-02-01 03:52] LABS: Calcium 9.1 mg/dL (8.5-10.1); Potassium 3.9 mmol/L (3.5-5.1)
[2020-02-01 03:54] LABS: INR 1.01 (0.9-1.15); Partial Thromboplastin Time 24.2 sec (23.64-32.05)
[2020-02-01] MEDS ORDERED: HEPARIN SODIUM (PORCINE) 5000 UNITS/ML 1ML VIAL IV ONE (04:45)
[2020-02-01 05:00] VITALS: BP 132/61
--- NOTE | 2020-02-01 05:35 | NUR ---
Heparin drip Received order from MD Jeannie for 5,000 unit bolus of heparin per protocol for PTT of 24.2. Bolus administered and rate increased by 3 ml/hr. Now running at 7.5 ml/hr. Will continue to monitor.
[2020-02-01] MEDS: hydrALAZINE HCL 25 MG TAB PO SCH ×2 (05:53→14:00)
[2020-02-01] MEDS: BUMETANIDE 1mg/4ml VIAL (0.25mg/ml) IV SCH (05:53)
--- NOTE | 2020-02-01 06:53 | NUR ---
Paged Liz Called Liz FARRAR regarding critical BUN of 98. Verified patient is on fluids and power system electrical engineer on case. Per MD, continue plan of care and fluids. Will continue to monitor.
--- NOTE | 2020-02-01 08:00 | NUR ---
OPENING SHIFT NOTE ASSUMED CARE OF PATIENT AWAKE AND ALERT. NO S/S OF DISTRESS NOTED OR COMPLAINTS OF PAIN. PATIENT UPDATED ON POC FOR THE DAY AND ALL QUESTIONS ANSWERED. BED IS IN LOWEST, LOCKED POSITION WITH SIDE RAILS UP X2 AND CALL LIGHT WITHIN REACH. WILL CONTINUE TO MONITOR Q1H AND PRN.
[2020-02-01] MEDS: levoFLOXacin 250MG 50 ML IV SCH (08:34)
[2020-02-01 09:00] VITALS: BP 134/60
--- NOTE | 2020-02-01 09:09 | NUR ---
PAGED PAGED DR DAMON REGARDING PHYSICAL THERAPY CHANGING THEIR RECOMMENDATION FROM SNF TO HOME HEALTH PT. AWAITING CALL BACK.
[2020-02-01] MEDS: PANTOPRAZOLE 40 MG/10 ML VIAL INJ IV SCH (09:43)
[2020-02-01] MEDS: methylPREDNISolone SOD SUCC 40 MG/ML VL IV SCH (09:43)
[2020-02-01] MEDS: DIGOXIN 0.125 MG TAB PO SCH (09:43)
[2020-02-01] MEDS: CHOLECALCIFEROL (VITD3) 1,000UNIT=25mCg TAB PO SCH (09:44)
[2020-02-01] MEDS: INSULIN LANTUS (GLARGINE) 1 /0.01ml (100units/ml) SC SCH (09:44)
[2020-02-01] MEDS: METOPROLOL TARTRATE 25 MG TAB PO SCH (09:44)
[2020-02-01] MEDS: CLOPIDOGREL BISULFATE 75 MG TAB PO SCH (09:44)
--- NOTE | 2020-02-01 10:47 | NUR ---
LAB CALLED LAB TO GET PTT RESULTS. LAB RECEIVED SPECIMEN AT 0954 AND STILL NO RESULTS AT 1047. PER LAB THE CLS ARE AT LUNCH AND UNABLE TO RUN THE TEST UNTIL THEY GET BACK IN AROUND 20 MINUTES. MADE HOSE MAKER AWARE OF THE IMPORTANCE OF THE RESULTS TO TITRATE HEPARIN DRIP. WILL FOLLOW UP.
[2020-02-01 11:14] LABS: INR 1.07 (0.9-1.15)
--- NOTE | 2020-02-01 11:22 | NUR ---
HEPARIN PTT RESULT CAME BACK AT 54.0. NO CHANGE NEEDED FOR HEPARIN DRIP.
[2020-02-01 13:00] VITALS: BP 130/69
--- NOTE | 2020-02-01 13:12 | NUR ---
Respiratory note: PT ASSESSED FOR PRN MED NEB TX, STATES SHE DOESN'T FEEL SHE NEEDS IT. PT IS AWAKE AND ALERT, SITTING IN BED PT DENIES SOB, NO DISTRESS NOTED. PT AND RN AWARE TO HAVE RT PAGED IF NEEDED. HR 61 RR 18 SPO2 94% ON 2.5L. BREATH SOUNDS ARE DIMINISHED T/O
--- NOTE | 2020-02-01 13:45 | NUR ---
RECEIVED CALL FROM MD DR DAMON CALLED BACK. PATIENT NEEDS TO BE CLEARED FOR DISCHARGE AND DISCHARGE MEDICATIONS CLARIFIED BY DR CHRISTIE, DR RUCKER, AND DR GUZMAN. PER MD THIS NURSE IS TO CONTACT THESE THREE PHYSICIANS. PAGES HAVE BEEN PLACED FOR ALL THREE. AWAITING CALLS BACK.
[2020-02-01 13:50] VITALS: BP 130/69
--- NOTE | 2020-02-01 14:05 | NUR ---
RECEIVED CALL FROM MD RECEIVED CALL FROM DR CHRISTIE. ORDER TO DISCONTINUE HEPARIN DRIP AND PATIENT IS OK TO BE DISCHARGED ON 81MG ASA AND 75MG PLAVIX. CLEARED FROM CARDIOLOGY STANDPOINT.
--- NOTE | 2020-02-01 14:14 | NUR ---
Christine catheter dc'd Order to discontinue christine catheter. Christine dc'd with clean technique following deflation of balloon. Patient tolerated well with no complaints of pain. Continue care.
--- NOTE | 2020-02-01 14:25 | NUR ---
RECEIVED CALL FROM RECEIVED CALL FROM DR RUCKER. PATIENT IS CLEARED TO BE DISCHARGED AND RESUME HER HOME LASIX.
[2020-02-01] MEDS ORDERED: MET25T PO (16:34)
[2020-02-01] MEDS ORDERED: HYDR-2691 PO (16:34)
[2020-02-01] MEDS ORDERED: PRED20TA2 PO (16:34)
[2020-02-01] MEDS ORDERED: CLOP75TA28 PO (16:34)
[2020-02-01] MEDS ORDERED: ASPI-394 PO (16:34)
[2020-02-01] MEDS ORDERED: LEVO250T69 PO (16:34)
[2020-02-01 17:00] VITALS: BP 148/63
--- NOTE | 2020-02-01 18:43 | NUR ---
Discharge instructions given as ordered. Encourage to follow up with PMD as instructed. All questions and concerns addressed. Patient verbalized understanding. IV removed with catheter intact, pressure dressing applied. Telemetry unit returned to ICU. Patient taken to vehicle via wheelchair with all personal belongings, accompanied by staff. No distress noted at time of departure.
== END 2020-02-01 18:50 | disposition home health service (06) | DRG 208 ==
LOC: ER 05:47 → EDBD 05:47 → TELE 05:48 → ICU WEST 21:05 → TELE-EAST 01-29 13:52
PROVIDERS: ADMIT Internal Medicine; ATTEND Internal Medicine
PROC: 5A1945Z Respiratory Ventilation, 24-96 Consecutive Hours (ICD-10-PCS; principal; 2020-01-26)
PROC: 0BH17EZ Insertion of Endotracheal Airway into Trachea, Via Natural or Artificial Opening (ICD-10-PCS; 2020-01-26)
DX: J96.21 Acute and chronic respiratory failure with hypoxia (principal); N17.0 Acute kidney failure with tubular necrosis; I21.4 Non-ST elevation (NSTEMI) myocardial infarction; J18.9 Pneumonia, unspecified organism; E87.0 Hyperosmolality and hypernatremia; I13.0 Hypertensive heart and chronic kidney disease with heart failure and stage 1 through stage 4 chronic kidney disease, or unspecified chronic kidney disease; J98.11 Atelectasis; J96.22 Acute and chronic respiratory failure with hypercapnia; N18.3 Chronic kidney disease, stage 3 (moderate); D63.8 Anemia in other chronic diseases classified elsewhere; M81.0 Age-related osteoporosis without current pathological fracture; D72.829 Elevated white blood cell count, unspecified; Z20.828 Contact with and (suspected) exposure to other viral communicable diseases; E11.22 Type 2 diabetes mellitus with diabetic chronic kidney disease; D50.9 Iron deficiency anemia, unspecified; E78.5 Hyperlipidemia, unspecified; I25.10 Atherosclerotic heart disease of native coronary artery without angina pectoris; I25.2 Old myocardial infarction; I48.91 Unspecified atrial fibrillation; I50.9 Heart failure, unspecified; J43.9 Emphysema, unspecified; F32.9 Major depressive disorder, single episode, unspecified; Z79.01 Long term (current) use of anticoagulants; Z79.02 Long term (current) use of antithrombotics/antiplatelets; Z79.84 Long term (current) use of oral hypoglycemic drugs; Z79.899 Other long term (current) drug therapy; Z80.9 Family history of malignant neoplasm, unspecified; Z83.3 Family history of diabetes mellitus; Z87.891 Personal history of nicotine dependence; Z95.5 Presence of coronary angioplasty implant and graft; Z88.0 Allergy status to penicillin
CPT/HCPCS: 31500; 36415; 36600; 71045; 80048; 80053; 81001; 82550; 82570; 82805; 82962; 83036; 83605; 83615; 83880; 84100; 84156; 84300; 84443; 84484; 85007; 85025; 85027; 85610; 85730; 87040; 87070; 87081; 87086; 87205; 87804; 87880; 92610; 93005; 93306; 94002; 94003; 94640; 94660; 97116; 97530; 99291; C9113; G0378; J0330; J0696; J1815; J1956; J2250; Q9967

== ENCOUNTER 2020-04-26 06:44 | Inpatient (IN) | payer OTHER ==
[~2020-04-26] VITALS: Ht 160 cm; Wt 69.0 kg
[~2020-04-26 06:44] MED LIST changes: -APIX2.5T PO; +ASPI-394 PO; +HYDR-2691 PO; -HYDR-4296 PO; -LEVO-28 PO; +LEVO250T69 PO; -LISI40TA11 PO; -PANT20TA59 PO
[2020-04-26] MEDS ORDERED: cloNIDine HCL 0.1 MG TAB PO ONE (07:00)
[2020-04-26] MEDS ORDERED: dilTIAZem 25 MG/5 ML VIAL IV ONE (07:45)
[2020-04-26 07:51] LABS: Basophils # (auto) 0.1 10 ^3/uL (0-0.2); Eosinophils # (auto) 0.1 10 ^3/uL (0-0.8); Hemoglobin 10.3 g/dL (12.2-16.2); Lymphocytes % (auto) 30.6 % (10.0-50.0); Mean Corpuscular Hemoglobin 25.6 pg (28.0-32.0); Monocytes # (auto) 0.9 10 ^3/uL (0-1.3); Nucleated Red Blood Cells % 0.1 %; Red Blood Cells 4.02 10^6/uL (4.0-5.20); White Blood Cell 16.5 10^3/uL (4.4-10.8)
[2020-04-26 07:53] LABS: Basophils % (auto) 0.3 % (0.0-2.0); Eosinophils % (auto) 0.6 % (0.0-7.0); Hematocrit 33.1 % (36.0-46.0); Lymphocytes # (auto) 5.1 10 ^3/uL (0.4-5.4); Mean Corpuscular Hgb Conc. 31.2 g/dL (32.0-36.0); Mean Corpuscular Volume 82.2 fL (80.0-100.0); Monocytes % (auto) 5.6 % (0.0-12.0); Neutrophils # (auto) 10.4 10 ^3/uL (1.6-8.6); Neutrophils % (auto) 62.9 % (37.0-80.0); Platelet Count (auto) 345 10^3/uL (140-450); Red Cell Distribution Width 16.5 % (11.8-14.3)
[2020-04-26 08:04] LABS: INR 0.95 (0.9-1.15)
[2020-04-26 08:11] LABS: Albumin 3.6 g/dL (3.4-5.0); BUN/Creatinine Ratio 9.8; Calcium 8.6 mg/dL (8.5-10.1); Magnesium 1.7 mg/dL (1.6-2.6); Potassium 3.1 mmol/L (3.5-5.1)
[2020-04-26 08:16] LABS: Bilirubin, Total 0.4 mg/dL (0.2-1.0); Total Protein 7.2 g/dL (6.4-8.2)
[2020-04-26 08:41] LABS: Partial Thromboplastin Time 20.9 sec (23.0-31.2)
[2020-04-26] MEDS ORDERED: POTASSIUM EFFERVESENT TAB 25 MEQ PO ONE (10:00)
[2020-04-26] MEDS ORDERED: cefTRIAXone 1GM/50ML D5W 50 ML IV ONE (10:15)
[2020-04-26] MEDS ORDERED: MORPHINE SULF INJ 2 MG/ML SYRINGE 1ML IV PRN (10:30)
[2020-04-26] MEDS ORDERED: NITROGLYCERIN 0.4 MG SL TAB SL PRN (10:30)
[2020-04-26] MEDS ORDERED: DEXTROSE (50%) 50ML SYRG IV PRN (10:30)
[2020-04-26 10:34] LABS: Urine Bacteria FEW /hpf (None Seen); Urine Blood Negative /uL (Negative); Urine Specific Gravity 1.014 (1.001-1.035); Urine WBC 3 /hpf (0 - 5)
[2020-04-26] MEDS ORDERED: FAMOTIDINE 20 MG TAB PO ONE (10:45)
[2020-04-26 10:47] VITALS: BP 123/69
[2020-04-26] MEDS: FAMOTIDINE 20 MG TAB PO SCH (11:05)
[2020-04-26] MEDS: DOXYCYCLINE 100MG/250ML 250 ML IV SCH ×2 (11:13→22:30)
[2020-04-26] MEDS: ACCU-CHEK COMFORT CURVE STRIP VI SCH ×3 (11:14→22:00)
[2020-04-26] MEDS: InsuLIN REG 1unit/0.01ml Soln (100units/ml) SC SCH ×2 (11:14→17:30)
[2020-04-26] MEDS: LEVALBUTEROL HCL 1.25 MG/3 ML NEB NEB SCH ×2 (12:00→18:53)
[2020-04-26] MEDS: IPRATROPIUM BROM 0.5 MG/2.5ML INH SOL NEB SCH ×2 (12:00→18:53)
[2020-04-26] MEDS ORDERED: APIX2.5T PO (12:16)
[2020-04-26 13:00] VITALS: BP 145/69
[2020-04-26] MEDS: hydrALAZINE HCL 25 MG TAB PO SCH ×2 (14:14→21:58)
[2020-04-26 17:00] VITALS: BP 132/60
[2020-04-26] MEDS: FUROSEMIDE 40 MG/4 ML VIAL IV SCH (17:27)
[2020-04-26 20:00] VITALS: BP 149/62
[2020-04-26] MEDS: POTASSIUM CHL 10 Meq TABLET PO SCH (21:58)
[2020-04-26] MEDS: traZODone HCL 50 MG TAB PO SCH (21:58)
[2020-04-26] MEDS: methylPREDNISolone SOD SUCC 40 MG/ML VL IV SCH (21:58)
[2020-04-26] MEDS: METOPROLOL TARTRATE 25 MG TAB PO SCH (21:59)
[2020-04-26 22:00] VITALS: BP 149/62
[2020-04-26] MEDS ORDERED: ATORVASTATIN 20 MG TAB PO SCH (22:00)
[2020-04-26] MEDS ORDERED: InsuLIN REG 1unit/0.01ml Soln (100units/ml) SC SCH (22:00)
[2020-04-27] MEDS: traZODone HCL 50 MG TAB PO SCH (01:59)
[2020-04-27 04:44] VITALS: BP 130/63
[2020-04-27 05:50] LABS: Basophils # (auto) 0 10 ^3/uL (0-0.2); Basophils % (auto) 0.2 % (0.0-2.0); Eosinophils # (auto) 0 10 ^3/uL (0-0.8); Eosinophils % (auto) 0.1 % (0.0-7.0); Hematocrit 26.4 % (36.0-46.0); Hemoglobin 8.3 g/dL (12.2-16.2); Lymphocytes # (auto) 0.9 10 ^3/uL (0.4-5.4); Lymphocytes % (auto) 7.5 % (10.0-50.0); Mean Corpuscular Hemoglobin 25.9 pg (28.0-32.0); Mean Corpuscular Hgb Conc. 31.5 g/dL (32.0-36.0); Mean Corpuscular Volume 82.1 fL (80.0-100.0); Monocytes # (auto) 0.2 10 ^3/uL (0-1.3); Monocytes % (auto) 1.9 % (0.0-12.0); Neutrophils # (auto) 11.2 10 ^3/uL (1.6-8.6); Neutrophils % (auto) 90.3 % (37.0-80.0); Platelet Count (auto) 266 10^3/uL (140-450); Red Blood Cells 3.22 10^6/uL (4.0-5.20); Red Cell Distribution Width 16.4 % (11.8-14.3); White Blood Cell 12.3 10^3/uL (4.4-10.8)
[2020-04-27] MEDS: hydrALAZINE HCL 25 MG TAB PO SCH ×2 (06:00→14:00)
[2020-04-27 06:05] LABS: Calcium 8.3 mg/dL (8.5-10.1); Potassium 3.4 mmol/L (3.5-5.1)
[2020-04-27] MEDS: FUROSEMIDE 40 MG/4 ML VIAL IV SCH ×2 (06:15→18:00)
[2020-04-27] MEDS: ACCU-CHEK COMFORT CURVE STRIP VI SCH ×3 (06:16→17:00)
[2020-04-27] MEDS: InsuLIN REG 1unit/0.01ml Soln (100units/ml) SC SCH ×3 (06:28→17:00)
[2020-04-27] MEDS: METOPROLOL TARTRATE 25 MG TAB PO SCH (06:40)
[2020-04-27] MEDS: LEVALBUTEROL HCL 1.25 MG/3 ML NEB NEB SCH ×3 (06:58→12:16)
[2020-04-27] MEDS: IPRATROPIUM BROM 0.5 MG/2.5ML INH SOL NEB SCH ×2 (06:59→12:16)
[2020-04-27 08:00] VITALS: BP 120/75
[2020-04-27] MEDS: methylPREDNISolone SOD SUCC 40 MG/ML VL IV SCH (09:34)
[2020-04-27] MEDS: FAMOTIDINE 20 MG TAB PO SCH (09:35)
[2020-04-27] MEDS: DOXYCYCLINE 100MG/250ML 250 ML IV SCH (09:35)
[2020-04-27] MEDS: POTASSIUM CHL 10 Meq TABLET PO SCH (09:35)
[2020-04-27] MEDS ORDERED: ASPirin-EC 81 mg tab PO SCH (10:00)
[2020-04-27] MEDS ORDERED: CLOPIDOGREL BISULFATE 75 MG TAB PO SCH (10:00)
[2020-04-27] MEDS ORDERED: DIGOXIN 0.125 MG TAB PO SCH (10:00)
[2020-04-27 13:00] VITALS: BP 132/70
[2020-04-27] MEDS ORDERED: DOXY-338 PO (14:23)
[2020-04-27] MEDS ORDERED: FURO1TAB31 PO (14:24)
[2020-04-27] MEDS ORDERED: POTA10TA51 PO (14:24)
[2020-04-27] MEDS ORDERED: ALBU0.5N2 IN (14:24)
[2020-04-27 15:51] VITALS: BP 132/70
== END 2020-04-27 18:20 | disposition home or self-care (01) | DRG 291 ==
LOC: EDBD 06:44 → ER 06:44 → EDUNIT# 06:44 → TELE 06:45 → TELE-WESTW 12:02
PROVIDERS: ADMIT Hospitalist; ATTEND Hospitalist
PROC: 5A09357 Assistance with Respiratory Ventilation, Less than 24 Consecutive Hours, Continuous Positive Airway Pressure (ICD-10-PCS; principal; 2020-04-26)
DX: I13.0 Hypertensive heart and chronic kidney disease with heart failure and stage 1 through stage 4 chronic kidney disease, or unspecified chronic kidney disease (principal); J96.21 Acute and chronic respiratory failure with hypoxia; I50.31 Acute diastolic (congestive) heart failure; J18.9 Pneumonia, unspecified organism; I48.20 Chronic atrial fibrillation, unspecified; J98.11 Atelectasis; I43 Cardiomyopathy in diseases classified elsewhere; N18.3 Chronic kidney disease, stage 3 (moderate); E11.22 Type 2 diabetes mellitus with diabetic chronic kidney disease; D63.1 Anemia in chronic kidney disease; E87.6 Hypokalemia; E11.21 Type 2 diabetes mellitus with diabetic nephropathy; E78.5 Hyperlipidemia, unspecified; I25.10 Atherosclerotic heart disease of native coronary artery without angina pectoris; J43.9 Emphysema, unspecified; Z82.49 Family history of ischemic heart disease and other diseases of the circulatory system; Z83.3 Family history of diabetes mellitus; F32.9 Major depressive disorder, single episode, unspecified
CPT/HCPCS: 36415; 36600; 71045; 80048; 80053; 80162; 81001; 82805; 82962; 83735; 83880; 84484; 85025; 85610; 85730; 87040; 93005; 94640; 94660; 99291; G0378; G0463; J0696; J1815; J3490

== ENCOUNTER 2020-08-14 20:02 | Inpatient (IN) | payer OTHER ==
[~2020-08-14] VITALS: Ht 152.4 cm; Wt 60.3 kg
[~2020-08-14 20:02] MED LIST changes: +ALBU0.5N2 IN; +APIX2.5T PO; +DOXY-338 PO; +FURO1TAB31 PO; -LEVO250T69 PO; +POTA10TA51 PO; -PRED20TA2 PO
[2020-08-14 21:41] LABS: Basophils # (auto) 0.1 10 ^3/uL (0-0.2); Eosinophils # (auto) 0.1 10 ^3/uL (0-0.8); Hematocrit 22.4 % (36.0-46.0); Hemoglobin 7.3 g/dL (12.2-16.2); Lymphocytes # (auto) 1.6 10 ^3/uL (0.4-5.4); Monocytes # (auto) 0.7 10 ^3/uL (0-1.3); White Blood Cell 14.1 10^3/uL (4.4-10.8)
[2020-08-14 21:42] LABS: Basophils % (auto) 0.7 % (0.0-2.0); Eosinophils % (auto) 0.7 % (0.0-7.0); Lymphocytes % (auto) 11.1 % (10.0-50.0); Mean Corpuscular Hemoglobin 27.4 pg (28.0-32.0); Mean Corpuscular Hgb Conc. 32.5 g/dL (32.0-36.0); Mean Corpuscular Volume 84.2 fL (80.0-100.0); Monocytes % (auto) 4.9 % (0.0-12.0); Neutrophils # (auto) 11.7 10 ^3/uL (1.6-8.6); Neutrophils % (auto) 82.6 % (37.0-80.0); Platelet Count (auto) 257 10^3/uL (140-450); Red Blood Cells 2.66 10^6/uL (4.0-5.20)
[2020-08-14 21:56] LABS: Albumin 3.3 g/dL (3.4-5.0); Anion Gap 3 (5-15); Blood Urea Nitrogen 50 mg/dL (7-18); Calcium 8.2 mg/dL (8.5-10.1); Carbon Dioxide 23 mmol/L (21-32); Chloride 110 mmol/L (98-107); Glucose 182 mg/dL (74-106); Sodium 136 mmol/L (136-145)
[2020-08-14 22:01] LABS: Alanine Aminotransferase 11 U/L (13-56); Alkaline Phosphatase 134 U/L (45-117); Aspartate Aminotransferase 5 U/L (15-37); BUN/Creatinine Ratio 19.2; Bilirubin, Total 0.3 mg/dL (0.2-1.0); GFR African American 23 mL/min; GFR Non-African American 19 mL/min; Total Protein 6.8 g/dL (6.4-8.2)
[2020-08-14 22:13] LABS: Potassium 7.1 mmol/L (3.5-5.1)
[2020-08-14] MEDS ORDERED: CALCIUM GLUC 4.65meq/50ml D5AE 50 ML IV ONE (22:30)
[2020-08-14] MEDS ORDERED: InsuLIN REG 1unit/0.01ml Soln (100units/ml) IV ONE (22:30)
[2020-08-14] MEDS ORDERED: SODIUM BICARBONATE 8.4% INJ 50ML SYRINGE IV ONE (22:30)
[2020-08-14] MEDS ORDERED: SODIUM ZIRCONIUM CYCL 10 GM PAK PO ONE (22:30)
[2020-08-14] MEDS ORDERED: DEXTROSE (50%) 50ML SYRG IV ONE (22:30)
[2020-08-15 00:08] LABS: Urine Bacteria MANY /hpf (None Seen); Urine Blood Negative /uL (Negative); Urine Mucus FEW (None Seen); Urine Specific Gravity 1.014 (1.001-1.035); Urine WBC 3 /hpf (0 - 5)
[2020-08-15] MEDS ORDERED: DEXTROSE (50%) 50ML SYRG IV ONE ×2 (02:30→06:00)
[2020-08-15] MEDS ORDERED: InsuLIN REG 1unit/0.01ml Soln (100units/ml) IV ONE ×2 (02:30→06:00)
[2020-08-15] MEDS ORDERED: MORPHINE SULF INJ 2 MG/ML SYRINGE 1ML IV PRN (04:15)
[2020-08-15] MEDS ORDERED: DEXTROSE (50%) 50ML SYRG IV PRN (04:15)
[2020-08-15] MEDS ORDERED: DOCUSATE SOD 100 MG CAP PO PRN (04:15)
[2020-08-15] MEDS ORDERED: NITROGLYCERIN 0.4 MG SL TAB SL PRN (04:15)
[2020-08-15] MEDS ORDERED: FUROSEMIDE 40 MG/4 ML VIAL IV ONE (04:15)
[2020-08-15] MEDS ORDERED: MORPHINE SULFATE 4 MG/ML SYR/VIAL IV PRN (04:15)
[2020-08-15] MEDS ORDERED: ONDANSETRON HCL 4 MG/2 ML VIAL IV PRN (04:15)
[2020-08-15] MEDS ORDERED: HYDROcodone-ACET 5/325MG TAB PO PRN (04:15)
[2020-08-15] MEDS: DOXYCYCLINE 100MG/250ML 250 ML IV SCH ×2 (05:19→17:10)
[2020-08-15] MEDS: SODIUM CHLOR 0.9% PF (SALINE LOCK) 10ML VIAL/SYR IV SCH ×3 (06:00→22:26)
[2020-08-15] MEDS ORDERED: SODIUM ZIRCONIUM CYCL 10 GM PAK PO ONE (06:00)
[2020-08-15] MEDS ORDERED: SODIUM BICARBONATE 8.4% INJ 50ML SYRINGE IV ONE (06:00)
[2020-08-15] MEDS ORDERED: CALCIUM GLUC 4.65meq/50ml D5AE 50 ML IV ONE (06:00)
[2020-08-15] MEDS: InsuLIN REG 1unit/0.01ml Soln (100units/ml) SC SCH ×4 (07:00→22:00)
[2020-08-15] MEDS: ACCU-CHEK COMFORT CURVE STRIP VI SCH ×4 (07:00→22:00)
[2020-08-15 08:45] LABS: Basophils # (auto) 0 10 ^3/uL (0-0.2); Basophils % (auto) 0.3 % (0.0-2.0); Eosinophils # (auto) 0.1 10 ^3/uL (0-0.8); Eosinophils % (auto) 0.5 % (0.0-7.0); Hematocrit 22.3 % (36.0-46.0); Hemoglobin 7.3 g/dL (12.2-16.2); Lymphocytes # (auto) 2.1 10 ^3/uL (0.4-5.4); Lymphocytes % (auto) 13.7 % (10.0-50.0); Mean Corpuscular Hemoglobin 27.4 pg (28.0-32.0); Mean Corpuscular Hgb Conc. 32.9 g/dL (32.0-36.0); Mean Corpuscular Volume 83.2 fL (80.0-100.0); Monocytes # (auto) 1.3 10 ^3/uL (0-1.3); Monocytes % (auto) 8.9 % (0.0-12.0); Neutrophils # (auto) 11.6 10 ^3/uL (1.6-8.6); Neutrophils % (auto) 76.6 % (37.0-80.0); Platelet Count (auto) 246 10^3/uL (140-450); Red Blood Cells 2.67 10^6/uL (4.0-5.20); Red Cell Distribution Width 19.8 % (11.8-14.3); White Blood Cell 15.1 10^3/uL (4.4-10.8)
[2020-08-15 09:08] LABS: Albumin 3.4 g/dL (3.4-5.0); BUN/Creatinine Ratio 23.6; Calcium 8.7 mg/dL (8.5-10.1)
[2020-08-15 09:14] LABS: Bilirubin, Total 0.3 mg/dL (0.2-1.0); Total Protein 6.5 g/dL (6.4-8.2)
[2020-08-15] MEDS: FAMOTIDINE (10MG/ML) 2ML VL IV SCH ×2 (09:31→22:25)
[2020-08-15] MEDS: ZINC SULFATE 220mg CAP or TAB PO SCH (09:31)
[2020-08-15] MEDS: MULTIPLE VITAMIN TAB PO SCH (09:32)
[2020-08-15] MEDS: FUROSEMIDE 20 MG/2 ML VIAL IV SCH (09:32)
[2020-08-15] MEDS: HEPARIN SODIUM (PORCINE) 5000 UNITS/ML 1ML VIAL SC SCH ×2 (09:33→22:26)
[2020-08-15] MEDS: methylPREDNISolone SOD SUCC 40 MG/ML VL IV SCH ×2 (09:34→22:25)
[2020-08-15] MEDS: ASCORBIC ACID 500 MG TAB PO SCH ×2 (09:35→22:25)
[2020-08-15] MEDS: SODIUM BICARBONATE 650 MG TAB PO SCH ×2 (14:15→22:25)
[2020-08-15] MEDS: levoFLOXacin 250MG 50 ML IV SCH (16:00)
[2020-08-15] MEDS: APIXABAN 2.5 MG TAB PO SCH (22:25)
[2020-08-16 09:22] LABS: Albumin 3.5 g/dL (3.4-5.0); Calcium 8.8 mg/dL (8.5-10.1); Potassium 5.4 mmol/L (3.5-5.1)
[2020-08-16] MEDS ORDERED: IPRATROPIUM BROM 0.5 MG/2.5ML INH SOL NEB ONE (09:30)
[2020-08-16] MEDS ORDERED: ALBUTEROL SULF 2.5 MG/0.5ML(0.5%) NEB SOLN NEB ONE (09:30)
[2020-08-16 09:33] LABS: Basophils # (auto) 0 10 ^3/uL (0-0.2); Basophils % (auto) 0.1 % (0.0-2.0); Eosinophils # (auto) 0 10 ^3/uL (0-0.8); Hematocrit 23.5 % (36.0-46.0); Hemoglobin 7.9 g/dL (12.2-16.2); Lymphocytes # (auto) 1.1 10 ^3/uL (0.4-5.4); Lymphocytes % (auto) 11.5 % (10.0-50.0); Mean Corpuscular Hemoglobin 27.8 pg (28.0-32.0); Mean Corpuscular Hgb Conc. 33.6 g/dL (32.0-36.0); Mean Corpuscular Volume 82.7 fL (80.0-100.0); Monocytes # (auto) 0.3 10 ^3/uL (0-1.3); Monocytes % (auto) 2.7 % (0.0-12.0); Neutrophils # (auto) 8.3 10 ^3/uL (1.6-8.6); Neutrophils % (auto) 85.7 % (37.0-80.0); Platelet Count (auto) 254 10^3/uL (140-450); Red Blood Cells 2.84 10^6/uL (4.0-5.20); Red Cell Distribution Width 19.6 % (11.8-14.3); White Blood Cell 9.7 10^3/uL (4.4-10.8)
[2020-08-16 09:51] LABS: Bilirubin, Total 0.3 mg/dL (0.2-1.0); Magnesium 1.9 mg/dL (1.6-2.6)
[2020-08-16] MEDS: ACCU-CHEK COMFORT CURVE STRIP VI SCH ×4 (10:28→22:00)
[2020-08-16] MEDS: InsuLIN REG 1unit/0.01ml Soln (100units/ml) SC SCH ×4 (10:28→22:00)
[2020-08-16] MEDS: SODIUM CHLOR 0.9% PF (SALINE LOCK) 10ML VIAL/SYR IV SCH ×2 (10:28→14:04)
[2020-08-16] MEDS: methylPREDNISolone SOD SUCC 40 MG/ML VL IV SCH (10:32)
[2020-08-16] MEDS: FAMOTIDINE (10MG/ML) 2ML VL IV SCH (10:32)
[2020-08-16] MEDS: SODIUM BICARBONATE 650 MG TAB PO SCH ×2 (10:51→14:00)
[2020-08-16] MEDS: ASCORBIC ACID 500 MG TAB PO SCH (10:52)
[2020-08-16] MEDS: ZINC SULFATE 220mg CAP or TAB PO SCH (10:52)
[2020-08-16] MEDS: APIXABAN 2.5 MG TAB PO SCH (10:52)
[2020-08-16] MEDS: MULTIPLE VITAMIN TAB PO SCH (10:52)
[2020-08-16] MEDS: DOXYCYCLINE 100MG/250ML 250 ML IV SCH ×2 (10:59→17:20)
[2020-08-16] MEDS: FUROSEMIDE 20 MG/2 ML VIAL IV SCH (11:01)
[2020-08-16] MEDS ORDERED: CALCIUM GLUC 4.65meq/50ml D5AE 50 ML IV ONE (11:15)
[2020-08-16] MEDS ORDERED: InsuLIN REG 1unit/0.01ml Soln (100units/ml) IV ONE (11:15)
[2020-08-16] MEDS ORDERED: DEXTROSE (50%) 50ML SYRG IV ONE (11:15)
[2020-08-16] MEDS: levoFLOXacin 250MG 50 ML IV SCH (16:22)
[2020-08-16] MEDS: HEPARIN SODIUM (PORCINE) 5000 UNITS/ML 1ML VIAL SC SCH (16:44)
[2020-08-16] MEDS: ACETAMINOPHEN 325 MG TAB PO PRN (17:15)
[2020-08-17] VITALS (7 sets, daily range): BP systolic 149–170; BP diastolic 53–106
[2020-08-17 00:38] LABS: BUN/Creatinine Ratio 26.8; Potassium 4.8 mmol/L (3.5-5.1)
[2020-08-17] MEDS: methylPREDNISolone SOD SUCC 40 MG/ML VL IV SCH ×4 (02:10→23:02)
[2020-08-17] MEDS: APIXABAN 2.5 MG TAB PO SCH ×3 (02:10→21:25)
[2020-08-17] MEDS: ASCORBIC ACID 500 MG TAB PO SCH ×3 (02:10→21:26)
[2020-08-17] MEDS: SODIUM CHLOR 0.9% PF (SALINE LOCK) 10ML VIAL/SYR IV SCH ×4 (02:10→21:31)
[2020-08-17] MEDS: FAMOTIDINE (10MG/ML) 2ML VL IV SCH ×4 (02:14→23:02)
[2020-08-17 06:06] LABS: Calcium 8.6 mg/dL (8.5-10.1); Potassium 5.1 mmol/L (3.5-5.1)
[2020-08-17 06:08] LABS: BUN/Creatinine Ratio 26.9
[2020-08-17] MEDS: InsuLIN REG 1unit/0.01ml Soln (100units/ml) SC SCH ×4 (06:25→21:33)
[2020-08-17] MEDS: ACCU-CHEK COMFORT CURVE STRIP VI SCH ×4 (06:25→21:27)
[2020-08-17] MEDS: DOXYCYCLINE 100MG/250ML 250 ML IV SCH ×3 (06:29→22:51)
[2020-08-17] MEDS: MULTIPLE VITAMIN TAB PO SCH (10:29)
[2020-08-17] MEDS: ZINC SULFATE 220mg CAP or TAB PO SCH (10:29)
[2020-08-17] MEDS: FUROSEMIDE 20 MG/2 ML VIAL IV SCH (10:31)
[2020-08-17] MEDS: ACETAMINOPHEN 325 MG TAB PO PRN (14:44)
[2020-08-17] MEDS: levoFLOXacin 250MG 50 ML IV SCH (16:34)
[2020-08-18] VITALS: BP 153/66
[2020-08-18] MEDS: SODIUM CHLOR 0.9% PF (SALINE LOCK) 10ML VIAL/SYR IV SCH ×2 (04:53→14:54)
[2020-08-18] MEDS: DOXYCYCLINE 100MG/250ML 250 ML IV SCH (04:53)
[2020-08-18 05:00] VITALS: BP 133/47
[2020-08-18] MEDS: ACCU-CHEK COMFORT CURVE STRIP VI SCH ×3 (06:05→16:32)
[2020-08-18] MEDS: InsuLIN REG 1unit/0.01ml Soln (100units/ml) SC SCH ×3 (06:06→17:09)
[2020-08-18 06:44] LABS: Basophils # (auto) 0 10 ^3/uL (0-0.2); Eosinophils # (auto) 0 10 ^3/uL (0-0.8); Hemoglobin 8.4 g/dL (12.2-16.2); Monocytes # (auto) 0.4 10 ^3/uL (0-1.3); Platelet Count (auto) 252 10^3/uL (140-450)
[2020-08-18 06:45] LABS: Basophils % (auto) 0.2 % (0.0-2.0); Hematocrit 25.3 % (36.0-46.0); Lymphocytes # (auto) 1.1 10 ^3/uL (0.4-5.4); Lymphocytes % (auto) 8.8 % (10.0-50.0); Mean Corpuscular Hemoglobin 27.8 pg (28.0-32.0); Mean Corpuscular Hgb Conc. 33.1 g/dL (32.0-36.0); Mean Corpuscular Volume 83.8 fL (80.0-100.0); Monocytes % (auto) 3.5 % (0.0-12.0); Neutrophils # (auto) 10.5 10 ^3/uL (1.6-8.6); Neutrophils % (auto) 87.5 % (37.0-80.0); Red Blood Cells 3.02 10^6/uL (4.0-5.20); Red Cell Distribution Width 19.2 % (11.8-14.3)
[2020-08-18 07:10] LABS: Potassium 5.1 mmol/L (3.5-5.1)
[2020-08-18 07:15] LABS: BUN/Creatinine Ratio 29.4; Calcium 8.9 mg/dL (8.5-10.1)
[2020-08-18 08:00] VITALS: BP 146/61
[2020-08-18] MEDS: MULTIPLE VITAMIN TAB PO SCH (09:04)
[2020-08-18] MEDS: APIXABAN 2.5 MG TAB PO SCH (09:05)
[2020-08-18] MEDS: ASCORBIC ACID 500 MG TAB PO SCH (09:05)
[2020-08-18] MEDS: FAMOTIDINE (10MG/ML) 2ML VL IV SCH (09:05)
[2020-08-18] MEDS: ZINC SULFATE 220mg CAP or TAB PO SCH (09:05)
[2020-08-18] MEDS: methylPREDNISolone SOD SUCC 40 MG/ML VL IV SCH (09:05)
[2020-08-18] MEDS: FUROSEMIDE 20 MG/2 ML VIAL IV SCH (09:06)
[2020-08-18] MEDS: ACETAMINOPHEN 325 MG TAB PO PRN (09:23)
[2020-08-18] MEDS ORDERED: amLODIPine BESYLATE 5 MG TAB PO ONE (10:45)
[2020-08-18 12:08] LABS: Creatinine, Urine 15 mg/dL (30.0-125.0); Sodium Urine 123 mmol/L (40-220)
[2020-08-18] MEDS ORDERED: DOXYCYCLINE 100MG/250ML 250 ML IV SCH (14:45)
[2020-08-18 16:00] VITALS: BP 141/53
[2020-08-18] MEDS ORDERED: levoFLOXacin 250MG 50 ML IV SCH (16:00)
[2020-08-18] MEDS ORDERED: levoFLOXacin 250 MG TAB PO SCH (16:00)
[2020-08-18 20:00] VITALS: BP 135/66
[2020-08-18 20:15] VITALS: BP 135/66
[2020-08-18] MEDS ORDERED: DOXYCYCLINE 100 MG TAB/CAP PO SCH (22:00)
[2020-08-19] MEDS ORDERED: amLODIPine BESYLATE 5 MG TAB PO SCH (10:00)
== END 2020-08-18 20:20 | disposition home health service (06) | DRG 193 ==
LOC: EDBD 20:02 → ER 20:02 → TELE 08-15 04:11 → TELE-CENTR 08-16 23:45
PROVIDERS: ADMIT Nurse Practitioner Family; ATTEND Internal Medicine
DX: J18.9 Pneumonia, unspecified organism (principal); J96.21 Acute and chronic respiratory failure with hypoxia; S32.501A Unspecified fracture of right pubis, initial encounter for closed fracture; N17.9 Acute kidney failure, unspecified; J44.1 Chronic obstructive pulmonary disease with (acute) exacerbation; I13.0 Hypertensive heart and chronic kidney disease with heart failure and stage 1 through stage 4 chronic kidney disease, or unspecified chronic kidney disease; J44.0 Chronic obstructive pulmonary disease with (acute) lower respiratory infection; E87.5 Hyperkalemia; D63.8 Anemia in other chronic diseases classified elsewhere; D72.825 Bandemia; E11.65 Type 2 diabetes mellitus with hyperglycemia; E78.5 Hyperlipidemia, unspecified; E11.22 Type 2 diabetes mellitus with diabetic chronic kidney disease; E78.00 Pure hypercholesterolemia, unspecified; F32.9 Major depressive disorder, single episode, unspecified; I25.10 Atherosclerotic heart disease of native coronary artery without angina pectoris; I48.91 Unspecified atrial fibrillation; I50.9 Heart failure, unspecified; I70.0 Atherosclerosis of aorta; R00.1 Bradycardia, unspecified; T46.0X5A Adverse effect of cardiac-stimulant glycosides and drugs of similar action, initial encounter; J20.9 Acute bronchitis, unspecified; N18.32 Chronic kidney disease, stage 3b; Z53.20 Procedure and treatment not carried out because of patient's decision for unspecified reasons; Z79.01 Long term (current) use of anticoagulants; Z79.02 Long term (current) use of antithrombotics/antiplatelets; Z79.84 Long term (current) use of oral hypoglycemic drugs; Z79.899 Other long term (current) drug therapy; Z80.0 Family history of malignant neoplasm of digestive organs; Z80.1 Family history of malignant neoplasm of trachea, bronchus and lung; Z85.05 Personal history of malignant neoplasm of liver; Z87.891 Personal history of nicotine dependence; Z98.61 Coronary angioplasty status; Z99.81 Dependence on supplemental oxygen; Z88.0 Allergy status to penicillin; Y92.89 Other specified places as the place of occurrence of the external cause; Z20.822 Contact with and (suspected) exposure to COVID-19
CPT/HCPCS: 36415; 71045; 73502; 73700; 80048; 80053; 80162; 82570; 82962; 83036; 83735; 84132; 84300; 85025; 87040; 87426; 93005; 93970; 96365; 96375; 97163; G0378; J0610; J1815; J3490

== ENCOUNTER 2021-07-10 02:51 | Inpatient (IN) | payer OTHER ==
[~2021-07-10] VITALS: Ht 172.7 cm; Wt 71.6 kg
[2021-07-10 02:43] VITALS: BP 219/114
[~2021-07-10 02:51] MED LIST changes: -ALEN1TAB32 PO; +ALEN70TA74 PO; +BUPR150T18 PO; -BUPR150T6 PO; -DIGO0.1238 PO; +DIGO1TAB48 PO; -HYDR-2691 PO; +HYDR25TA87 PO; -POTA10TA51 PO
[2021-07-10] MEDS ORDERED: FUROSEMIDE 40 MG/4 ML VIAL IV ONE (03:00)
[2021-07-10] MEDS ORDERED: methylPREDNISolone SOD SUCC 125 MG/2 ML VL IV ONE (03:00)
[2021-07-10] MEDS ORDERED: IPRATROPIUM BROM 0.5 MG/2.5ML INH SOL NEB ONE (03:00)
[2021-07-10] MEDS ORDERED: ALBUTEROL SULF 2.5 MG/0.5ML(0.5%) NEB SOLN NEB ONE (03:00)
[2021-07-10] MEDS ORDERED: NITROGLYCERIN 50MG/250ML 250 ML IV ONE (03:00)
[2021-07-10 04:02] LABS: Basophils # (auto) 0.1 10 ^3/uL (0-0.2); Basophils % (auto) 0.6 % (0.0-2.0); Eosinophils # (auto) 0.4 10 ^3/uL (0-0.8); Eosinophils % (auto) 3.3 % (0.0-7.0); Hematocrit 34.6 % (36.0-46.0); Hemoglobin 10.9 g/dL (12.2-16.2); Lymphocytes # (auto) 2.7 10 ^3/uL (0.4-5.4); Mean Corpuscular Hemoglobin 27.6 pg (28.0-32.0); Mean Corpuscular Hgb Conc. 31.4 g/dL (32.0-36.0); Monocytes # (auto) 0.8 10 ^3/uL (0-1.3); Monocytes % (auto) 6.8 % (0.0-12.0); Neutrophils # (auto) 8.2 10 ^3/uL (1.6-8.6); Neutrophils % (auto) 67.3 % (37.0-80.0); Nucleated Red Blood Cells % 0.1 %; Red Blood Cells 3.93 10^6/uL (4.0-5.20); Red Cell Distribution Width 14.3 % (11.8-14.3); White Blood Cell 12.2 10^3/uL (4.4-10.8)
[2021-07-10 04:19] LABS: Lactic Acid w/Reflex 2.1 mmol/L (0.4-2.0)
[2021-07-10 04:27] LABS: Albumin 3.5 g/dL (3.4-5.0); BUN/Creatinine Ratio 11.1; Calcium 8.7 mg/dL (8.5-10.1); Magnesium 1.9 mg/dL (1.6-2.6); Potassium 3.7 mmol/L (3.5-5.1)
[2021-07-10 04:38] LABS: Bilirubin, Total 0.3 mg/dL (0.2-1.0); Total Protein 6.8 g/dL (6.4-8.2)
[2021-07-10 05:31] LABS: Urine Bacteria NONE SEEN /hpf (None Seen); Urine Blood Negative /uL (Negative); Urine Hyaline Cast FEW /lpf (0 - 2); Urine Specific Gravity 1.008 (1.001-1.035); Urine WBC 44 /hpf (0 - 5)
[2021-07-10 10:34] VITALS: BP 133/87
[2021-07-10] MEDS ORDERED: dilTIAZem 25 MG/5 ML VIAL IV ONE (11:00)
[2021-07-10] MEDS ORDERED: SODIUM CHLORIDE 0.9% 1,000 ML IV ONE (11:00)
[2021-07-10] MEDS ORDERED: AMIODARONE HCL 200 MG TAB PO ONE (11:00)
[2021-07-10] MEDS ORDERED: SODIUM CHLORIDE 0.9% 2,000 ML IV ONE (11:00)
[2021-07-10] MEDS ORDERED: METOCLOPRAMIDE HCL 5MG/ml INJ 2ml VIAL IV PRN (11:15)
[2021-07-10] MEDS ORDERED: MORPHINE SULFATE INJECTION 2 MG/ML SYRG IV PRN (11:15)
[2021-07-10] MEDS ORDERED: ACETAMINOPHEN 325 MG TAB PO PRN (11:15)
[2021-07-10] MEDS ORDERED: DEXTROSE (50%) 50ML SYRG IV PRN (11:15)
[2021-07-10] MEDS ORDERED: HYDROcodone-ACET 5/325MG TAB PO PRN (11:15)
[2021-07-10] MEDS ORDERED: NITROGLYCERIN 0.4 MG SL TAB SL PRN (11:15)
[2021-07-10] MEDS ORDERED: ALBUTEROL SULF 2.5 MG/0.5ML(0.5%) NEB SOLN ONE (11:19)
[2021-07-10] MEDS: levoFLOXacin 500MG 100 ML IV SCH (11:24)
[2021-07-10] MEDS ORDERED: ALBUTEROL SULF 2.5 MG/0.5ML(0.5%) NEB SOLN NEB SCH (12:00)
[2021-07-10] MEDS: LEVALBUTEROL HCL 1.25 MG/3 ML NEB NEB SCH ×3 (12:00→23:48)
[2021-07-10] MEDS: ACCU-CHEK COMFORT CURVE STRIP VI SCH ×3 (12:14→21:51)
[2021-07-10] MEDS: InsuLIN REG 1unit/0.01ml Soln (100units/ml) SC SCH ×3 (12:17→21:45)
[2021-07-10] MEDS: INSULIN LANTUS (GLARGINE) 1 /0.01ml (100units/ml) SC SCH (12:18)
[2021-07-10] MEDS: methylPREDNISolone SOD SUCC 40 MG/ML VL IV SCH ×2 (14:13→21:49)
[2021-07-10] MEDS: POTASSIUM CHL 20 Meq TABLET PO SCH (21:50)
[2021-07-10] MEDS: APIXABAN 2.5 MG TAB PO SCH (21:50)
[2021-07-10] MEDS: ATORVASTATIN 20 MG TAB PO SCH (21:51)
[2021-07-10] MEDS ORDERED: FUROSEMIDE 20 MG TAB PO SCH (22:00)
[2021-07-10] MEDS ORDERED: APIXABAN 5 MG TAB PO SCH (22:00)
[2021-07-11] MEDS: methylPREDNISolone SOD SUCC 40 MG/ML VL IV SCH ×3 (05:39→22:56)
[2021-07-11] MEDS: LEVALBUTEROL HCL 1.25 MG/3 ML NEB NEB SCH ×3 (06:10→18:42)
[2021-07-11] MEDS ORDERED: METOPROLOL TARTRATE 25 MG TAB PO ONE (06:15)
[2021-07-11] MEDS ORDERED: AMIODARONE HCL 200 MG TAB PO ONE (06:15)
[2021-07-11] MEDS: InsuLIN REG 1unit/0.01ml Soln (100units/ml) SC SCH ×4 (07:10→22:34)
[2021-07-11] MEDS: ACCU-CHEK COMFORT CURVE STRIP VI SCH ×4 (07:11→22:36)
[2021-07-11 07:40] LABS: Basophils # (auto) 0 10 ^3/uL (0-0.2); Basophils % (auto) 0.1 % (0.0-2.0); Eosinophils # (auto) 0 10 ^3/uL (0-0.8); Hematocrit 28.9 % (36.0-46.0); Hemoglobin 9.7 g/dL (12.2-16.2); Lymphocytes # (auto) 0.9 10 ^3/uL (0.4-5.4); Lymphocytes % (auto) 5.8 % (10.0-50.0); Mean Corpuscular Hemoglobin 28.7 pg (28.0-32.0); Mean Corpuscular Hgb Conc. 33.5 g/dL (32.0-36.0); Mean Corpuscular Volume 85.7 fL (80.0-100.0); Monocytes # (auto) 0.5 10 ^3/uL (0-1.3); Monocytes % (auto) 3.4 % (0.0-12.0); Neutrophils # (auto) 14.1 10 ^3/uL (1.6-8.6); Neutrophils % (auto) 90.7 % (37.0-80.0); Red Blood Cells 3.38 10^6/uL (4.0-5.20); Red Cell Distribution Width 14.4 % (11.8-14.3); White Blood Cell 15.5 10^3/uL (4.4-10.8)
[2021-07-11 07:49] LABS: BUN/Creatinine Ratio 18.6; Calcium 8.6 mg/dL (8.5-10.1); Potassium 3.4 mmol/L (3.5-5.1)
[2021-07-11] MEDS: POTASSIUM CHL 20 Meq TABLET PO SCH ×2 (10:00→22:24)
[2021-07-11] MEDS ORDERED: ASPirin 81 mg TAB PO SCH (10:00)
[2021-07-11] MEDS: FUROSEMIDE 40 MG TAB PO SCH ×2 (10:00→22:24)
[2021-07-11] MEDS: APIXABAN 2.5 MG TAB PO SCH ×2 (10:00→22:25)
[2021-07-11] MEDS: INSULIN LANTUS (GLARGINE) 1 /0.01ml (100units/ml) SC SCH ×2 (10:02→22:35)
[2021-07-11] MEDS: PANTOPRAZOLE 40 MG TAB PO SCH (10:07)
[2021-07-11] MEDS: METOPROLOL TARTRATE 25 MG TAB PO SCH (10:07)
[2021-07-11] MEDS: levoFLOXacin 500MG 100 ML IV SCH (10:10)
[2021-07-11] MEDS ORDERED: POTASSIUM CHL 20MEQ/100ML 100 ML IV ONE (12:30)
[2021-07-11] MEDS: SULFAMETHOX W/TRIMETH(800/160MG) DS TAB PO SCH ×2 (13:35→22:24)
[2021-07-11 14:15] VITALS: BP 159/86
[2021-07-11 15:03] VITALS: BP 142/50
[2021-07-11 15:18] LABS: Lactic Acid w/Reflex 4.8 mmol/L (0.4-2.0)
[2021-07-11 17:00] VITALS: BP 114/46
[2021-07-11 20:00] VITALS: BP 145/67
[2021-07-11 22:00] VITALS: BP 145/67
[2021-07-11] MEDS: AMIODARONE HCL 200 MG TAB PO SCH (22:23)
[2021-07-11] MEDS: ATORVASTATIN 20 MG TAB PO SCH (22:24)
[2021-07-12] MEDS: LEVALBUTEROL HCL 1.25 MG/3 ML NEB NEB SCH ×4 (00:24→19:16)
[2021-07-12] MEDS: SODIUM CHLORIDE 0.9% 1,000 ML IV SCH ×2 (01:26→05:51)
[2021-07-12 05:00] VITALS: BP 163/66
[2021-07-12] MEDS: InsuLIN REG 1unit/0.01ml Soln (100units/ml) SC SCH ×3 (06:38→17:57)
[2021-07-12] MEDS: ACCU-CHEK COMFORT CURVE STRIP VI SCH ×3 (06:40→17:40)
[2021-07-12] MEDS ORDERED: IPRATROPIUM BROM 0.5 MG/2.5ML INH SOL ONE (07:41)
[2021-07-12] MEDS ORDERED: ALBUTEROL SULF 2.5 MG/0.5ML(0.5%) NEB SOLN ONE (07:41)
[2021-07-12 07:55] VITALS: BP 174/75
[2021-07-12 09:00] VITALS: BP 174/75
[2021-07-12] MEDS: POTASSIUM CHL 20 Meq TABLET PO SCH (09:26)
[2021-07-12] MEDS: SULFAMETHOX W/TRIMETH(800/160MG) DS TAB PO SCH (09:26)
[2021-07-12] MEDS: APIXABAN 2.5 MG TAB PO SCH (09:26)
[2021-07-12] MEDS: AMIODARONE HCL 200 MG TAB PO SCH (09:26)
[2021-07-12] MEDS: PANTOPRAZOLE 40 MG TAB PO SCH (09:27)
[2021-07-12] MEDS: METOPROLOL TARTRATE 25 MG TAB PO SCH (09:27)
[2021-07-12] MEDS: INSULIN LANTUS (GLARGINE) 1 /0.01ml (100units/ml) SC SCH (09:28)
[2021-07-12] MEDS ORDERED: predniSONE 20 MG TAB PO SCH (10:00)
[2021-07-12] MEDS ORDERED: FUROSEMIDE 20 MG TAB PO SCH (10:00)
[2021-07-12 13:00] VITALS: BP 141/62
[2021-07-12 13:39] LABS: Basophils # (auto) 0.1 10 ^3/uL (0-0.2); Basophils % (auto) 0.5 % (0.0-2.0); Eosinophils # (auto) 0 10 ^3/uL (0-0.8); Hematocrit 29.4 % (36.0-46.0); Hemoglobin 9.5 g/dL (12.2-16.2); Lymphocytes # (auto) 0.7 10 ^3/uL (0.4-5.4); Lymphocytes % (auto) 3.7 % (10.0-50.0); Mean Corpuscular Hemoglobin 27.7 pg (28.0-32.0); Mean Corpuscular Hgb Conc. 32.3 g/dL (32.0-36.0); Mean Corpuscular Volume 85.8 fL (80.0-100.0); Monocytes # (auto) 0.7 10 ^3/uL (0-1.3); Monocytes % (auto) 3.6 % (0.0-12.0); Neutrophils # (auto) 18.6 10 ^3/uL (1.6-8.6); Neutrophils % (auto) 92.2 % (37.0-80.0); Red Blood Cells 3.43 10^6/uL (4.0-5.20); Red Cell Distribution Width 14.8 % (11.8-14.3); White Blood Cell 20.2 10^3/uL (4.4-10.8)
[2021-07-12 13:43] LABS: BUN/Creatinine Ratio 21.1; Calcium 8.3 mg/dL (8.5-10.1); Potassium 4.1 mmol/L (3.5-5.1)
[2021-07-12 13:52] LABS: Lactic Acid w/Reflex 2.9 mmol/L (0.4-2.0)
[2021-07-12] MEDS ORDERED: FURO1TAB31 PO (15:24)
[2021-07-12] MEDS ORDERED: PRED20TA2 PO (15:24)
[2021-07-12] MEDS ORDERED: AMIO200T33 PO (15:24)
[2021-07-12] MEDS ORDERED: METO25TA93 PO (15:24)
[2021-07-12] MEDS ORDERED: POTA-220 PO (15:24)
[2021-07-12] MEDS ORDERED: SULF400T11 PO (15:24)
[2021-07-12 17:00] VITALS: BP 131/89
[2021-07-12] MEDS ORDERED: SALINE 0.65 % NASAL SPRAY 45ML BOTTLE EACHNOSTRI SCH (18:00)
[2021-07-12 18:34] VITALS: BP 131/89
== END 2021-07-12 20:07 | disposition home health service (06) | DRG 280 ==
LOC: EDBD 02:51 → ER 02:51 → TELE 11:05 → TELE-CENTR 07-11 14:31
PROVIDERS: ADMIT Internal Medicine; ATTEND Internal Medicine
PROC: 5A09357 Assistance with Respiratory Ventilation, Less than 24 Consecutive Hours, Continuous Positive Airway Pressure (ICD-10-PCS; principal; 2021-07-10)
DX: I21.4 Non-ST elevation (NSTEMI) myocardial infarction (principal); J18.9 Pneumonia, unspecified organism; J96.21 Acute and chronic respiratory failure with hypoxia; I50.23 Acute on chronic systolic (congestive) heart failure; J96.22 Acute and chronic respiratory failure with hypercapnia; J44.1 Chronic obstructive pulmonary disease with (acute) exacerbation; N39.0 Urinary tract infection, site not specified; N17.9 Acute kidney failure, unspecified; I13.0 Hypertensive heart and chronic kidney disease with heart failure and stage 1 through stage 4 chronic kidney disease, or unspecified chronic kidney disease; J44.0 Chronic obstructive pulmonary disease with (acute) lower respiratory infection; I48.91 Unspecified atrial fibrillation; I25.10 Atherosclerotic heart disease of native coronary artery without angina pectoris; N18.30 Chronic kidney disease, stage 3 unspecified; E87.6 Hypokalemia; E11.22 Type 2 diabetes mellitus with diabetic chronic kidney disease; E78.5 Hyperlipidemia, unspecified; M81.0 Age-related osteoporosis without current pathological fracture; T38.0X5A Adverse effect of glucocorticoids and synthetic analogues, initial encounter; Z99.81 Dependence on supplemental oxygen; Z20.822 Contact with and (suspected) exposure to COVID-19; D63.8 Anemia in other chronic diseases classified elsewhere; D72.829 Elevated white blood cell count, unspecified; Z87.891 Personal history of nicotine dependence; Y92.89 Other specified places as the place of occurrence of the external cause; Z80.1 Family history of malignant neoplasm of trachea, bronchus and lung; Z80.0 Family history of malignant neoplasm of digestive organs; Z98.61 Coronary angioplasty status; F32.A Depression, unspecified; Z88.0 Allergy status to penicillin
CPT/HCPCS: 36415; 36600; 71045; 80048; 80053; 81001; 82805; 82962; 83605; 83690; 83735; 83880; 84484; 85025; 86850; 86900; 86901; 87040; 87086; 87426; 93005; 93306; 94640; 94660; 96365; 96367; 96372; 96375; 97163; G0378; J1815; J1956; J3480

== ENCOUNTER 2021-09-21 16:33 | Inpatient (IN) | payer OTHER ==
[~2021-09-21] VITALS: Ht 154.9 cm; Wt 72.3 kg
[~2021-09-21 16:33] MED LIST changes: +AMIO200T33 PO; -CLOP75TA28 PO; -DIGO1TAB48 PO; -DOXY-338 PO; -MET25T PO; +METO25TA93 PO; +POTA-220 PO; +PRED20TA2 PO; +SULF400T11 PO; -TRAZ50TA2 PO
[2021-09-21] MEDS ORDERED: IPRATROPIUM BROM 0.5 MG/2.5ML INH SOL NEB ONE (18:15)
[2021-09-21] MEDS ORDERED: ALBUTEROL SULF 2.5 MG/0.5ML(0.5%) NEB SOLN NEB ONE (18:15)
[2021-09-21 18:45] LABS: Basophils # (auto) 0.1 10 ^3/uL (0-0.2); Basophils % (auto) 0.5 % (0.0-2.0); Eosinophils # (auto) 0.2 10 ^3/uL (0-0.8); Eosinophils % (auto) 1.4 % (0.0-7.0); Hematocrit 29.1 % (36.0-46.0); Hemoglobin 9.3 g/dL (12.2-16.2); Lymphocytes # (auto) 0.6 10 ^3/uL (0.4-5.4); Lymphocytes % (auto) 4.9 % (10.0-50.0); Mean Corpuscular Hemoglobin 27.4 pg (28.0-32.0); Mean Corpuscular Hgb Conc. 32.1 g/dL (32.0-36.0); Mean Corpuscular Volume 85.5 fL (80.0-100.0); Monocytes # (auto) 0.7 10 ^3/uL (0-1.3); Monocytes % (auto) 5.8 % (0.0-12.0); Neutrophils # (auto) 10.9 10 ^3/uL (1.6-8.6); Neutrophils % (auto) 87.4 % (37.0-80.0); Red Cell Distribution Width 16.8 % (11.8-14.3); White Blood Cell 12.5 10^3/uL (4.4-10.8)
[2021-09-21 18:59] LABS: Potassium 3.8 mmol/L (3.5-5.1)
[2021-09-21 19:08] LABS: Albumin 3.6 g/dL (3.4-5.0); BUN/Creatinine Ratio 14.7; Bilirubin, Total 0.8 mg/dL (0.2-1.0); Calcium 8.9 mg/dL (8.5-10.1); Total Protein 6.9 g/dL (6.4-8.2)
[2021-09-21] MEDS ORDERED: FUROSEMIDE 40 MG/4 ML VIAL IV ONE (21:00)
[2021-09-21] MEDS ORDERED: ACETAMINOPHEN 325 MG TAB PO PRN (22:15)
[2021-09-21] MEDS ORDERED: NITROGLYCERIN 0.4 MG SL TAB SL PRN (22:15)
[2021-09-21] MEDS ORDERED: DEXTROSE (50%) 50ML SYRG IV PRN (22:15)
[2021-09-21] MEDS ORDERED: ALBUTEROL SULF 2.5 MG/0.5ML(0.5%) NEB SOLN NEB PRN (22:15)
[2021-09-21] MEDS ORDERED: ONDANSETRON HCL 4 MG/2 ML VIAL IV PRN (22:15)
[2021-09-21] MEDS ORDERED: MORPHINE SULFATE INJECTION 2 MG/ML SYRG IV PRN (22:15)
[2021-09-21] MEDS ORDERED: amLODIPine BESYLATE 5 MG TAB PO ONE (23:30)
[2021-09-21] MEDS ORDERED: LISINOPRIL 20 MG TAB PO ONE (23:30)
[2021-09-22] VITALS (8 sets, daily range): BP systolic 123–162; BP diastolic 56–91
[2021-09-22] MEDS ORDERED: PNEUMOCOCCAL VACC POLYS 25 MCG/0.5 ML VIAL IM ONE (01:30)
[2021-09-22 01:54] LABS: Albumin 3.6 g/dL (3.4-5.0); Calcium 8.6 mg/dL (8.5-10.1); Potassium 3.4 mmol/L (3.5-5.1)
[2021-09-22 01:59] LABS: BUN/Creatinine Ratio 15.9; Bilirubin, Total 0.7 mg/dL (0.2-1.0); Total Protein 6.8 g/dL (6.4-8.2)
[2021-09-22 05:27] LABS: Basophils # (auto) 0 10 ^3/uL (0-0.2); Basophils % (auto) 0.4 % (0.0-2.0); Eosinophils # (auto) 0.1 10 ^3/uL (0-0.8); Eosinophils % (auto) 0.8 % (0.0-7.0); Hematocrit 27.4 % (36.0-46.0); Hemoglobin 8.9 g/dL (12.2-16.2); Lymphocytes % (auto) 8.5 % (10.0-50.0); Mean Corpuscular Hemoglobin 27.3 pg (28.0-32.0); Mean Corpuscular Hgb Conc. 32.5 g/dL (32.0-36.0); Mean Corpuscular Volume 83.9 fL (80.0-100.0); Monocytes # (auto) 1.2 10 ^3/uL (0-1.3); Neutrophils # (auto) 9.3 10 ^3/uL (1.6-8.6); Neutrophils % (auto) 80.3 % (37.0-80.0); Nucleated Red Blood Cells % 0.1 %; Red Blood Cells 3.26 10^6/uL (4.0-5.20); Red Cell Distribution Width 16.9 % (11.8-14.3); White Blood Cell 11.6 10^3/uL (4.4-10.8)
[2021-09-22] MEDS: InsuLIN REG 1unit/0.01ml Soln (100units/ml) SC SCH ×4 (06:27→21:59)
[2021-09-22] MEDS: ACCU-CHEK COMFORT CURVE STRIP VI SCH ×4 (06:28→21:58)
[2021-09-22] MEDS: FUROSEMIDE 20 MG/2 ML VIAL IV SCH ×2 (06:28→18:12)
[2021-09-22] MEDS ORDERED: PANTOPRAZOLE 40 MG TAB PO SCH (10:00)
[2021-09-22] MEDS: ASPirin 81 mg TAB PO SCH (10:31)
[2021-09-22] MEDS: hydrALAZINE HCL 25 MG TAB PO SCH ×2 (10:32→21:58)
[2021-09-22] MEDS: AMIODARONE HCL 200 MG TAB PO SCH ×2 (10:32→21:58)
[2021-09-22] MEDS: APIXABAN 2.5 MG TAB PO SCH ×2 (10:32→21:58)
[2021-09-22] MEDS: METOPROLOL SUCCINATE XL 50 MG TAB PO SCH (10:33)
[2021-09-22] MEDS ORDERED: IPRATROPIUM BROM 0.5 MG/2.5ML INH SOL NEB SCH (12:45)
[2021-09-22] MEDS ORDERED: POTASSIUM EFFERVESENT TAB 25 MEQ PO ONE (12:45)
[2021-09-22] MEDS ORDERED: FUROSEMIDE 20 MG/2 ML VIAL IV ONE (12:45)
[2021-09-22] MEDS: ALBUTEROL SULF 2.5 MG/0.5ML(0.5%) NEB SOLN NEB SCH (19:50)
[2021-09-22] MEDS: IPRATROPIUM BROM 0.5 MG/2.5ML INH SOL NEB SCH (19:51)
[2021-09-22] MEDS ORDERED: ATORVASTATIN 20 MG TAB PO SCH (22:00)
[2021-09-23 04:51] VITALS: BP 109/50
[2021-09-23] MEDS: FUROSEMIDE 20 MG/2 ML VIAL IV SCH (05:34)
[2021-09-23] MEDS: ALBUTEROL SULF 2.5 MG/0.5ML(0.5%) NEB SOLN NEB SCH ×2 (05:59→12:00)
[2021-09-23] MEDS: IPRATROPIUM BROM 0.5 MG/2.5ML INH SOL NEB SCH ×2 (05:59→12:00)
[2021-09-23] MEDS: InsuLIN REG 1unit/0.01ml Soln (100units/ml) SC SCH ×2 (06:12→12:18)
[2021-09-23 08:26] VITALS: BP 109/54
[2021-09-23] MEDS ORDERED: FUROSEMIDE 20 MG TAB PO ONE (09:15)
[2021-09-23] MEDS: METOPROLOL SUCCINATE XL 50 MG TAB PO SCH (10:00)
[2021-09-23] MEDS: hydrALAZINE HCL 25 MG TAB PO SCH (10:00)
[2021-09-23] MEDS: ACCU-CHEK COMFORT CURVE STRIP VI SCH ×2 (10:30→12:17)
[2021-09-23] MEDS ORDERED: CARV6.2551 PO (10:38)
[2021-09-23] MEDS ORDERED: SIMV80TA73 PO (10:38)
[2021-09-23] MEDS ORDERED: LISI40TA11 PO (10:38)
[2021-09-23] MEDS ORDERED: ATO40T PO (10:38)
[2021-09-23] MEDS ORDERED: POTA10TA32 PO (10:38)
[2021-09-23] MEDS ORDERED: FELO5TAB3 PO (10:38)
[2021-09-23] MEDS ORDERED: DIGO0.12 PO (10:38)
[2021-09-23] MEDS ORDERED: ASPI1TAB20 PO ×2 (11:12→11:15)
[2021-09-23] MEDS: ASPirin 81 mg TAB PO SCH (11:13)
[2021-09-23] MEDS: APIXABAN 2.5 MG TAB PO SCH (11:13)
[2021-09-23] MEDS: AMIODARONE HCL 200 MG TAB PO SCH (11:13)
[2021-09-23] MEDS ORDERED: IPR002IS NEB (11:15)
[2021-09-23] MEDS ORDERED: ASPI-498 OR (11:20)
[2021-09-23] MEDS ORDERED: ASPI-543 PO (11:21)
[2021-09-23] MEDS ORDERED: CAL025T GT (11:23)
[2021-09-23] MEDS ORDERED: ALBUAER3 IN (11:28)
[2021-09-23 12:55] VITALS: BP 112/64
[2021-09-23] MEDS ORDERED: FURO1TAB31 PO (14:03)
[2021-09-23] MEDS ORDERED: FURO1TAB33 PO (14:03)
[2021-09-23 14:04] VITALS: BP 109/54
[2021-09-23 14:05] LABS: Calcium 9.4 mg/dL (8.5-10.1); Potassium 3.4 mmol/L (3.5-5.1)
[2021-09-23] MEDS ORDERED: FUROSEMIDE 40 MG TAB PO SCH (18:00)
== END 2021-09-23 15:30 | disposition home or self-care (01) | DRG 291 ==
LOC: EDBD 16:33 → ER 16:40 → TELE 22:12 → TELE-CENTR 23:45
PROVIDERS: ADMIT Nurse Practitioner; ATTEND Internal Medicine
DX: I11.0 Hypertensive heart disease with heart failure (principal); I50.23 Acute on chronic systolic (congestive) heart failure; I48.20 Chronic atrial fibrillation, unspecified; I42.9 Cardiomyopathy, unspecified; E11.9 Type 2 diabetes mellitus without complications; E78.5 Hyperlipidemia, unspecified; I25.10 Atherosclerotic heart disease of native coronary artery without angina pectoris; I25.2 Old myocardial infarction; I48.0 Paroxysmal atrial fibrillation; Z98.61 Coronary angioplasty status; F32.A Depression, unspecified; Z20.822 Contact with and (suspected) exposure to COVID-19
CPT/HCPCS: 36415; 36600; 71045; 80048; 80053; 82805; 82962; 83735; 83880; 84484; 85025; 85379; 87426; 93005; 94640; 96374; G0378; J1815

== ENCOUNTER 2021-12-27 03:25 | Inpatient (IN) | payer OTHER ==
[~2021-12-27] VITALS: Ht 157.5 cm; Wt 74.8 kg
[2021-12-27] VITALS (8 sets, daily range): BP systolic 118–166; BP diastolic 66–91
[~2021-12-27 03:25] MED LIST changes: -ALBU0.5N2 IN; -ALBU18 PO; +ALBUAER3 IN; +ATO40T PO; -ATOR20TA50 PO; -BUPR150T18 PO; +CARV6.2551 PO; +DIGO0.12 PO; +FELO5TAB3 PO; +FURO1TAB33 PO; -HYDR25TA87 PO; +IPR002IS NEB; -IPRA0.03; +LISI40TA11 PO; -POTA-220 PO; +POTA10TA32 PO; -PRED20TA2 PO; +SIMV80TA73 PO; -SULF400T11 PO
[2021-12-27] MEDS ORDERED: ETOMIDATE (2MG/ML) 20ML VIAL IV ONE (03:26)
[2021-12-27] MEDS ORDERED: SUCCINYLCHOLINE CHLORIDE 20 MG/ML 10ML VIAL IV ONE (03:26)
[2021-12-27] MEDS ORDERED: methylPREDNISolone SOD SUCC 125 MG/2 ML VL ONE (03:32)
[2021-12-27] MEDS: MAGNESIUM SULFATE 1GM/100ML 100 ML IV SCH ×2 (03:32→05:34)
[2021-12-27] MEDS ORDERED: MAGNESIUM SULFATE 1GM/100ML 200 ML IV ONE (03:32)
[2021-12-27] MEDS ORDERED: methylPREDNISolone SOD SUCC 125 MG/2 ML VL IV ONE (04:15)
[2021-12-27 04:17] LABS: Basophils # (auto) 0.1 10 ^3/uL (0-0.2); Basophils % (auto) 0.6 % (0.0-2.0); Hematocrit 28.8 % (36.0-46.0); Hemoglobin 8.8 g/dL (12.2-16.2); Mean Corpuscular Hemoglobin 23.1 pg (28.0-32.0); Mean Corpuscular Hgb Conc. 30.4 g/dL (32.0-36.0); Monocytes # (auto) 0.8 10 ^3/uL (0-1.3); Nucleated Red Blood Cells % 0.1 %
[2021-12-27 04:19] LABS: Eosinophils # (auto) 0.2 10 ^3/uL (0-0.8); Eosinophils % (auto) 2.3 % (0.0-7.0); Lymphocytes # (auto) 2.6 10 ^3/uL (0.4-5.4); Lymphocytes % (auto) 23.8 % (10.0-50.0); Mean Corpuscular Volume 75.8 fL (80.0-100.0); Monocytes % (auto) 7.7 % (0.0-12.0); Neutrophils # (auto) 7.1 10 ^3/uL (1.6-8.6); Neutrophils % (auto) 65.6 % (37.0-80.0); Red Cell Distribution Width 17.1 % (11.8-14.3); White Blood Cell 10.8 10^3/uL (4.4-10.8)
[2021-12-27 04:31] LABS: INR 1.05 (0.9-1.15); Partial Thromboplastin Time 23.1 sec (23.6-33.0)
[2021-12-27 04:36] LABS: Albumin 3.5 g/dL (3.4-5.0); BUN/Creatinine Ratio 14.2; Potassium 4.4 mmol/L (3.5-5.1)
[2021-12-27 04:39] LABS: Bilirubin, Total 0.4 mg/dL (0.2-1.0); Total Protein 7.2 g/dL (6.4-8.2)
[2021-12-27 08:40] LABS: Urine Bacteria FEW /hpf (None Seen); Urine Blood 1+ /uL (Negative); Urine Hyaline Cast FEW /lpf (0 - 2); Urine Specific Gravity 1.018 (1.001-1.035); Urine WBC 211 /hpf (0 - 5)
[2021-12-27] MEDS ORDERED: cefTRIAXone 1GM/50ML D5W 50 ML IV ONE (09:00)
[2021-12-27] MEDS ORDERED: HYDROcodone-ACET 5/325MG TAB PO PRN (10:45)
[2021-12-27] MEDS ORDERED: ONDANSETRON HCL 4 MG/2 ML VIAL IV PRN (10:45)
[2021-12-27] MEDS ORDERED: ALBUTEROL SULF 2.5 MG/0.5ML(0.5%) NEB SOLN ONE (12:14)
[2021-12-27] MEDS: ALBUTEROL SULF 2.5 MG/0.5ML(0.5%) NEB SOLN NEB SCH ×2 (12:17→19:56)
[2021-12-27] MEDS ORDERED: FUROSEMIDE 40 MG/4 ML VIAL IV ONE (14:45)
[2021-12-27] MEDS: methylPREDNISolone SOD SUCC 40 MG/ML VL IV SCH ×2 (15:13→21:48)
[2021-12-27] MEDS ORDERED: levoFLOXacin 500MG 100 ML IV SCH (16:00)
[2021-12-27] MEDS: IPRATROPIUM BROM 0.5 MG/2.5ML INH SOL NEB SCH (19:56)
[2021-12-27] MEDS ORDERED: methylPREDNISolone SOD SUCC 40 MG/ML VL IV SCH (22:00)
[2021-12-27] MEDS: ACETAMINOPHEN 325 MG TAB PO PRN (22:40)
[2021-12-28] MEDS: ALBUTEROL SULF 2.5 MG/0.5ML(0.5%) NEB SOLN NEB SCH ×5 (00:58→23:52)
[2021-12-28] MEDS: IPRATROPIUM BROM 0.5 MG/2.5ML INH SOL NEB SCH ×5 (00:58→23:52)
[2021-12-28] MEDS ORDERED: DEXTROSE (50%) 50ML SYRG IV PRN (04:45)
[2021-12-28] MEDS: methylPREDNISolone SOD SUCC 40 MG/ML VL IV SCH ×3 (06:17→22:06)
[2021-12-28] MEDS: InsuLIN REG 1unit/0.01ml Soln (100units/ml) SC SCH ×4 (06:26→22:14)
[2021-12-28] MEDS: ACCU-CHEK COMFORT CURVE STRIP VI SCH ×4 (06:26→22:12)
[2021-12-28] MEDS ORDERED: ENOXAPARIN SOD 40 MG/0.4 ML SYRINGE SC SCH (10:00)
[2021-12-28] MEDS ORDERED: FUROSEMIDE 40 MG/4 ML VIAL IV SCH (10:00)
[2021-12-28] MEDS: FUROSEMIDE 40 MG/4 ML VIAL IV SCH (10:05)
[2021-12-28] MEDS: levoFLOXacin 250MG 50 ML IV SCH (10:05)
[2021-12-28] MEDS: AMIODARONE HCL 200 MG TAB PO SCH ×2 (10:06→22:06)
[2021-12-28] MEDS: APIXABAN 2.5 MG TAB PO SCH ×2 (10:06→22:05)
[2021-12-28 10:22] LABS: Basophils # (auto) 0 10 ^3/uL (0-0.2); Basophils % (auto) 0.3 % (0.0-2.0); Eosinophils # (auto) 0 10 ^3/uL (0-0.8); Hemoglobin 8.7 g/dL (12.2-16.2); Lymphocytes # (auto) 0.4 10 ^3/uL (0.4-5.4); Lymphocytes % (auto) 3.3 % (10.0-50.0)
[2021-12-28 10:24] LABS: Hematocrit 28.4 % (36.0-46.0); Mean Corpuscular Hemoglobin 22.7 pg (28.0-32.0); Mean Corpuscular Hgb Conc. 30.6 g/dL (32.0-36.0); Mean Corpuscular Volume 73.9 fL (80.0-100.0); Monocytes # (auto) 0.5 10 ^3/uL (0-1.3); Monocytes % (auto) 3.9 % (0.0-12.0); Neutrophils # (auto) 10.7 10 ^3/uL (1.6-8.6); Neutrophils % (auto) 92.5 % (37.0-80.0); Red Blood Cells 3.85 10^6/uL (4.0-5.20); Red Cell Distribution Width 17.4 % (11.8-14.3); White Blood Cell 11.6 10^3/uL (4.4-10.8)
[2021-12-28 10:40] LABS: Calcium 9.6 mg/dL (8.5-10.1); Potassium 4.2 mmol/L (3.5-5.1)
[2021-12-28 10:43] LABS: BUN/Creatinine Ratio 15.9
[2021-12-28 17:00] VITALS: BP 119/74
[2021-12-28 20:00] VITALS: BP 137/50
[2021-12-28] MEDS: ACETAMINOPHEN 325 MG TAB PO PRN (20:38)
[2021-12-28 21:59] VITALS: BP 137/50
[2021-12-28] MEDS ORDERED: ATORVASTATIN 20 MG TAB PO SCH (22:00)
[2021-12-29 05:36] VITALS: BP 113/61
[2021-12-29] MEDS: IPRATROPIUM BROM 0.5 MG/2.5ML INH SOL NEB SCH ×2 (06:06→18:12)
[2021-12-29] MEDS: ALBUTEROL SULF 2.5 MG/0.5ML(0.5%) NEB SOLN NEB SCH ×2 (06:06→18:13)
[2021-12-29] MEDS: ACCU-CHEK COMFORT CURVE STRIP VI SCH ×3 (06:17→16:43)
[2021-12-29] MEDS: InsuLIN REG 1unit/0.01ml Soln (100units/ml) SC SCH ×3 (06:20→17:17)
[2021-12-29 09:00] VITALS: BP 121/65
[2021-12-29] MEDS: AMIODARONE HCL 200 MG TAB PO SCH (09:08)
[2021-12-29] MEDS: APIXABAN 2.5 MG TAB PO SCH (09:08)
[2021-12-29] MEDS: levoFLOXacin 250MG 50 ML IV SCH (09:08)
[2021-12-29] MEDS: FUROSEMIDE 40 MG/4 ML VIAL IV SCH (09:10)
[2021-12-29] MEDS ORDERED: methylPREDNISolone SOD SUCC 40 MG/ML VL IV SCH (10:00)
[2021-12-29] MEDS ORDERED: PRED20TA2 PO (12:22)
[2021-12-29] MEDS ORDERED: FURO1TAB31 PO (12:22)
[2021-12-29] MEDS ORDERED: ALBUAER3 IN (12:22)
[2021-12-29] MEDS ORDERED: LEVO250T69 PO (12:22)
[2021-12-29] MEDS ORDERED: IPRIH INH (12:22)
[2021-12-29 13:00] VITALS: BP 116/60
[2021-12-29 15:14] VITALS: BP 116/60
[2021-12-29] MEDS: ACETAMINOPHEN 325 MG TAB PO PRN (16:28)
[2021-12-29 16:56] VITALS: BP 128/76
== END 2021-12-29 19:02 | disposition home health service (06) | DRG 189 ==
LOC: ER 03:25 → EDUNIT# 03:25 → EDBD 03:25 → OVERFLOW 10:44 → TELE-CENTR 12-28 16:27 → UNDODISIN 12-29 18:22
PROVIDERS: ADMIT Internal Medicine; ATTEND Internal Medicine
PROC: 5A09357 Assistance with Respiratory Ventilation, Less than 24 Consecutive Hours, Continuous Positive Airway Pressure (ICD-10-PCS; principal; 2021-12-27)
DX: J96.21 Acute and chronic respiratory failure with hypoxia (principal); I50.43 Acute on chronic combined systolic (congestive) and diastolic (congestive) heart failure; I13.0 Hypertensive heart and chronic kidney disease with heart failure and stage 1 through stage 4 chronic kidney disease, or unspecified chronic kidney disease; E87.2 Acidosis; J44.1 Chronic obstructive pulmonary disease with (acute) exacerbation; J98.11 Atelectasis; N39.0 Urinary tract infection, site not specified; J96.22 Acute and chronic respiratory failure with hypercapnia; E11.22 Type 2 diabetes mellitus with diabetic chronic kidney disease; Z20.822 Contact with and (suspected) exposure to COVID-19; E66.01 Morbid (severe) obesity due to excess calories; E78.5 Hyperlipidemia, unspecified; M81.0 Age-related osteoporosis without current pathological fracture; I25.10 Atherosclerotic heart disease of native coronary artery without angina pectoris; N18.30 Chronic kidney disease, stage 3 unspecified; I48.0 Paroxysmal atrial fibrillation; Z79.4 Long term (current) use of insulin; Z79.01 Long term (current) use of anticoagulants; Z79.84 Long term (current) use of oral hypoglycemic drugs; Z79.899 Other long term (current) drug therapy; Z80.0 Family history of malignant neoplasm of digestive organs; Z80.1 Family history of malignant neoplasm of trachea, bronchus and lung; Z83.3 Family history of diabetes mellitus; Z98.61 Coronary angioplasty status; Z99.81 Dependence on supplemental oxygen; Z88.0 Allergy status to penicillin
CPT/HCPCS: 36415; 36600; 51702; 71045; 80048; 80053; 81001; 82805; 82962; 83605; 83735; 83880; 84484; 85025; 85610; 85730; 86850; 86900; 86901; 87040; 93306; 93970; 94640; 94660; 96365; 96366; 96367; 96375; 99291; G0378; J0330; J0696; J1815; J1956